=== PATIENT | male | born 1965 | race Caucasian/White ===

== ENCOUNTER 2021-03-15 12:59 | Inpatient (IN) | payer OTHER, SELFPAY ==
[2021-03-15] VITALS (28 sets, daily range): BP systolic 68–127; BP diastolic 57–91; PULSE 92–114; RESP 0–29; TEMP 36.4–37.2; O2SAT 93–99; BMI 29.1
--- NOTE | 2021-03-15 13:25 | ECG_ITS ---
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 Measurements Intervals [place] Rate: 103 P: 62 ND: 134 QRS: 91 QRSD: 146 T: -25 QT: 368 QTc: 482 Interpretive Statements SINUS TACHYCARDIA POSSIBLE LEFT ATRIAL ENLARGEMENT [-0.1mV P-WAVE IN V1/V2] INDETERMINATE AXIS RIGHT BUNDLE BRANCH BLOCK ANTEROLATERAL MYOCARDIAL INFARCTION , POSSIBLY ACUTE ACUTE NE No previous ECG available for comparison Electronically Signed On 03-15-2021 15:22:31 ENGINEERING MGR by Ava Howard M.D. [id number]
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
--- NOTE | 2021-03-15 13:51 | W.ED.CHESTPA ---
HPI - Chest Pain General: Chief Complaint: Chest Pain Stated Complaint: SOB, TIGHTNESS, CP Time Seen by Provider: 03/15/21 13:28 History of Present Illness: HPI narrative: 56-year-old male presents emergency room complaining of chest pain. States it began yesterday. He has no known history of coronary artery disease. He does have a family history of a sister who had stents placed in her late 50s. Chest pain is worse with exertion and improves considerably with rest is not taken anything for it other than [id number] aspirin and Prilosec to begin taking yesterday. Time I first seen patient reports chest pain is 3 of 10 but markedly increases with any activity. Has not had any fever sweats chills cough no abdominal pain. MD complaint: chest pain Onset (ago): hour(s) Onset: during rest Pain location: substernal and left chest Pain radiation: none Severity: moderate Relieving factors: rest Exacerbating factors: exertion Associated symptoms: Deny abdominal pain, diaphoresis, dyspnea, fever(s), leg edema, nausea, palpitations, sense of impending doom, syncope or vomiting Treatment prior to arrival: aspirin and other (Omeprazole) Review of Systems Const: Denies: fever(s) or diaphoresis ENMT: Denies: throat pain, ear or mastoid pain, nasal discharge or nasal congestion Card: Denies: palpitations or syncope Resp: Denies: dyspnea GI: Denies: abdominal pain, nausea or vomiting : Denies: flank pain, dysuria, urinary frequency or urinary urgency Skin/Breast: Denies: rash or pruritus [facility] ED PFSH: Medical History (Updated 03/15/21 @ 13:58 by Kan Sprague DO) No pertinent past medical history Surgical History (Updated 03/15/21 @ 13:56 by Kan Sprague DO) No pertinent past surgical history Social History (Updated 03/15/21 @ 13:57 by Kan Sprague DO) Smoking and tobacco status: current some day smoker Physical Exam Const: COMMON NORMALS: no acute distress GENERAL APPEARANCE: cooperative and comfortable ORIENTATION/CONSCIOUSNESS: Yes awake, Yes oriented to person, Yes oriented to place and Yes oriented to time HENMT: COMMON NORMALS: normocephalic, atraumatic and hearing grossly normal bilaterally HEAD & SCALP: normocephalic and atraumatic Neck/C-Spine: COMMON NORMALS: no JVD Resp: COMMON NORMALS: normal respiratory effort, No retractions, No use of accessory muscles and clear to auscultation bilaterally AUSCULTATION: clear to auscultation bilaterally Cardio: COMMON NORMALS: no JVD, regular rate, regular rhythm and No murmurs present (Cardio) RATE: regular rate RHYTHM: regular rhythm GI: COMMON NORMALS: Soft to palpation and No hepatosplenomegaly present AUSCULTATION: Yes normoactive bowel sounds PALPATION: Yes Soft to palpation, No Tenderness to palpation present (GI), No Guarding due to palpation present (GI) and Yes No hepatosplenomegaly present Extremity: COMMON NORMALS: normal to inspection, capillary refill normal, no clubbing, cyanosis or edema, no calf tenderness and no pedal edema Neuro: SENSORIUM/ORIENTATION: Yes oriented to person, Yes oriented to place and Yes oriented to time Skin: COMMON NORMALS: no rashes or lesions noted GENERAL SKIN EXAM: no rashes or lesions noted Course Vital Signs: Vital signs: Vital Signs Temperature 98.9 F 03/15/21 13:10 Pulse Rate 101 H 03/15/21 14:05 Respiratory Rate 18 03/15/21 14:05 Blood Pressure 121/80 03/15/21 13:10 Pulse Oximetry 95 03/15/21 14:05 MDM - Chest Pain MDM Narrative: Medical decision making narrative: Nursing staff showed me initial EKG from the waiting room shows ST elevation in V34 and 5 with some reciprocal changes as well. Unfortunately he also has a bundle branch block and there are no old EKGs to compare to. He does meet criteria. Sent to Dr. Nickerson who is on-call for interventional. We then called him shortly after discussed with him he reviewed on the [employer] system he agrees it is concerning patient is still having chest pain that is better with rest and worsens with exertion Dr. Chan asked that we initiate STEMI protocols. We had already begun initiating these at the bedside with Plavix aspirin and heparin. It was paged overhead the Help Desk Coordinator activated. Lab Data: Labs: Lab Results 03/15/21 13:41 WBC 8.0 10^3/uL 10^3/ uL (4.0-10.0) RBC 5.22 10^6/uL 10^6 /uL (4.1-5.3) Hgb 15.7 g/dL g/dL (11.7-16.6) Hct 47.1 % % (42.0-52.0) MCV 90.2 fl fl (80-94) MCH 30.1 pg pg (28.0-34.0) MCHC 33.3 g/dL g/dL (30.0-36.0) RDW 13.1 % % (12.1-15.1) Plt Count 201 10^3/cmm 10^3 /cmm (130-400) MPV 11.1 fL H fL (7.4-10.4) Neut % (Auto) 73.7 % % Lymph % (Auto) 15.2 % % [place] % (Auto) 10.7 % % Eos % (Auto) 0.0 % % Baso % (Auto) 0.2 % % Neut # (Auto) 5.90 10^3/uL 10^3 /uL (1.8-7.7) Lymph # (Auto) 1.2 10^3/uL 10^3/ uL (0.8-4.8) [place] # (Auto) 0.9 10^3/uL 10^3/ uL (0.2-0.9) Eos # (Auto) 0.0 10^3/uL 10^3/ uL (0.0-0.8) Baso # (Auto) 0.0 10^3/uL 10^3/ uL (0.0-0.1) Nucleated RBC % (a uto) 0 % % Nucleated RBCs # 0.0 /100WBC /100W Discharge Plan Discharge Patient Disposition: Admitted As Inpatient Clinical Impression: ST elevation myocardial infarction (STEMI) Condition: Stable Coding Level of Care Code ED Couture Alterations Dressmaker for g Fwd Exam Comprehensive
--- NOTE | 2021-03-15 13:57 | XACV_ITS ---
Exam Room: 2 Ht: 183 cm Wt: 98 kg BSA: 2.25 m2 Gender: Male : 1965 Any Known Allergies: No known allergies Exam Priority: Routine Procedure(s): Procedure Description: Diagnostic procedure Procedure Description: PCI procedure Procedure Description: Left Heart Catheterization Procedure Description: Left ventriculography Procedure Description: PTCA Procedure Description: Coronary Angiography Celestine MARTINEZ; Diagnostic Cath Status: Emergency Diagnostic Findings * INDICATION: 56-year-old man with no significant prior cardiac history presented with chest pain symptoms for last 36 hours. Now it is almost resolved however still having some symptoms. EKG showed right bundle branch block with ST elevations in anterolateral leads. Tax Professional was activated for angiogram. * Circumflex has luminal irregularities. It gives collateral supply to RCA territory.. * Proximal Right Coronary Artery: total occlusion, LUCILA: 0 flow. Right to left collaterals are seen.. * First Obtuse Marginal Branch Segment: has 60-70% stenosis, LUCILA: 3 flow. * Left Main has no disease. * Mid Left Anterior Descending: total occlusion, LUCILA: 0 flow. * Coronary angiography shows right dominance. PCI Status: Emergency PCI Indication: Immediate PCI for STEMI Interventional Findings * Procedure detail: We engaged left main artery with XB 3.5 guide catheter. Run-through wire was used to attempt crossing into the LAD. It crossed the stenosed segment however was going into a diagonal. Multiple balloon inflations were performed however no flow could be restored. At this time we aborted further attempts as patient was chest pain-free, he had completed infarct and results of labs came back during the procedure showing initial troponin level of more than 3000. We then turned our attention to the OM 1 lesion which was 60 to 70% stenotic. We performed balloon angioplasty with 2.5 x 12 mm semicompliant balloon. At this time final images were obtained. Patient left the garden labourer in a stable condition. * Mid Left Anterior Descendin% stenosis treated with a AB TREK 2.50X12 RX BALLOON. 0% residual stenosis, LUCILA: 0 flow. * First Obtuse Marginal Branch Segment: 70% stenosis treated with a AB TREK 2.50X12 RX BALLOON. 0% residual stenosis, LUCILA: 3 flow. Conclusions 1. Totally occluded 2. mid LAD 3. . 4. This is 5. delayed presentation of ST elevation [place] 6. and LV gram showing akinetic/dyskinetic apical 7. area 8. . 9. Attempt to revascularize 10. LAD was aborted after no flow could be restored after balloon angioplasty and patient became chest pain-free. 11. During the procedure patient's labs came back with initial troponin of more than 3000 confirming delayed presentation and completion of infarct.. 12. Chronic total occlusion of RCA. 13. OM stenosis underwent balloon angioplasty. 14. Severe left ventricular systolic dysfunction. Ejection fraction of 15%. Recommendations * Patient has completed infarct. Medical therapy for now. Continue aspirin. * Order echocardiogram. * Transfer to ICU. * Beta-dolly and Lisinopril. * Will need close monitoring as high risk for developing cardiogenic shock. Interventional RX Recommendation: medical therapy and/or counseling Anticoagulation: Heparin Ventriculography Ejection Fraction: 15.0 % Pressures Phase:Rest AO : 81 / 69 ( 75 ) @ 12:24:00 PM 104 / 79 ( 89 ) @ 12:42:00 PM 109 / 75 ( 86 ) @ 12:43:00 PM 84 / 75 ( 78 ) @ 1:04:00 PM 99 / 84 ( 81 ) @ 1:10:00 PM 100 / 58 ( 72 ) @ 1:10:00 PM LV : 112 / 0 / 29 @ 1:08:00 PM 111 / 0 / 24 @ 1:09:00 PM 110 / 0 / 23 @ 1:10:00 PM Valves Phase:DefaultPhase AV : 12.0 @ 3:17:37 PM AV Mean Gradient: 15.0 @ 3:17:37 PM Clinical Evaluation EBL: 5mL-10mL Procedural Details Pre-Procedure Time Out. Identified patient by full name and date of as verbalized by the patient/guarantor. Does the consent match the physician's order: Yes. Accurate & Complete Informed Consent: N/A Emergent. Inpatient/Outpatient History & Physical on Chart: N/A Emergent. If H&P is completed, is and addenduem needed: N/A Emergent; If yes, is the addendum complete: N/A Emergent. Visualize and Verify Site with Patient/Guarantor: N/A. Relevant Radiology Images available: N/A Emergent. Pre-op teaching completed and patient verbalized understanding. The risks, benefits, and alternatives of sedation and/or procedure were discussed by physician. The patient agrees to continue. Procedure started. [facility] Clinical Fraility Score: 3: Managing Well. Tax Professional Indications: ACS <= 24 hours. Chest Pain Symptom Assessment: Typical Angina Symptoms. Correct patient, site and procedure confirmed by cath team. Current diagnosis: STEMI. PERRLA. Strong, equal hand commanding officer motorized squad bilaterally. Lungs clear x 5 lobes. IV Site on Arrival: 18 gauge in the left anticubital. IV Fluids: 0.9% NaCl at KVO. 0 mL infused prior to garden labourer. Oxygen started at 2liters/min via nasal canula. right groin was prepped with chloroprep then draped in the usual sterile fashion. right radial was prepped with chloroprep then draped in the usual sterile fashion. Physician notified. Baseline sample Acquired. HR: 104 BPM. Current Diagnosis : STEMI. Physician arrived. Physician scrubbed in. Immediate Pre-Procedure Time Out. Correct Patient: Yes; Correct Procedure: Yes; Correct Site: Yes; Correct Patient Position: Yes; Correct Supplies: Yes; Dried Flammable Prep: Yes; Blood Products Available: N/A;. Lidocaine 1% infiltrated to the right radial. An attempt to gain access to the right radial artery was unsuccessful. Manual pressure was held as needed to stop the bleeding. Lidocaine 1% infiltrated to the right groin. Arterial access obtained with micropuncture set. 6 mauritian XB 3.5 guide catheter was inserted over the wire. Multiple views taken of left coronary artery. Runthrough guidewire was advanced through the guide catheter to lesion in the mid LAD. Inflation number : 1 A AB TREK 2.50X12 RX BALLOON was prepped and advanced across the Mid LAD , then inflated to 6 STEVEN for 0:27 seconds. Inflation number: 2 The AB TREK 2.50X12 RX BALLOON was reinflated across the Mid LAD, to 6 STEVEN for 0:09 seconds. Balloon out. PCI Indication: STEMI. Inflation number: 3 The AB TREK 2.50X12 RX BALLOON was reinflated across the Mid LAD, to 8 STEVEN for 0:10 seconds. PCI Indication : Immediate PCI for STEMI. Inflation number: 4 The AB TREK 2.50X12 RX BALLOON was reinflated across the Mid LAD, to 12 STEVEN for 0:12 seconds. Balloon and wire out. Results checked. A 6 mauritian JR4 catheter in over wire. Multiple views taken of right coronary artery. Catheter removed over the standard wire. 6 mauritian XB 3.5 guide catheter was inserted over the wire. Lab called with critical labs. Troponin: 3308. Runthrough guidewire was advanced through the guide catheter to lesion in the mid LAD. Runthrough guidewire was advanced through the guide catheter to lesion in the diaganol. Inflation number: 5 The AB TREK 2.50X12 RX BALLOON was reinflated across the Mid LAD, to 6 STEVEN for 0:11 seconds. Diag wire out. Balloon out. Runthrough repositioned to OM. Inflation number: 1 The AB TREK 2.50X12 RX BALLOON was reinflated across the 1st Ob Gela, to 8 STEVEN for 0:17 seconds. Balloon out. Results checked. Wire out. Guide catheter out. A 5 mauritian Angled Pig catheter in over wire. EDP Sample taken: LV 112/0,29; HR: 103 BPM; SpO2: 95%. LV gram performed in PRAJAPATI @ 10 mL/second for a total of 30 mL. EDP Sample taken: LV 111/-1,24; HR: 101 BPM; SpO2: 97%. Pullback taken: LV 110/0,23; AO 99/84(81); Mean: 15mmHg, Peak to Peak: 12mmHg, SEP: 12sec/min; HR: 102 BPM; SpO2: 95%. Catheter removed over the exchange wire. Sheath(s) sutured into position with 2-0 silk and sterile 4x4's and Op-site applied over the site. No oozing or signs and symptoms of hematoma noted. Arterial sheath flushed and connected to tranducer and pressure bag with heparinized saline. Post Procedure: Pulses reassessed and unchanged. PERRLA. Strong, equal hand commanding officer motorized squad bilaterally. No VTE prophylaxis required. Medication's Wasted: Lidocaine 1% = 10 mL. Medication's Wasted: Other = Heparin 1000 units. Medication's Wasted: Nitro = 50 mg. Total IV fluids: 67.3 mL. Contrast type used: Omnipaque 300 mgI/mL, 500 mL bottle. Estimated blood loss: 5mL-10mL. Responsiveness - Normal response to verbal stimuli; alert and oriented, PERRLA. Airway - Unaffected, no intervention required; spontaneous ventilation. Circulation: W/N/L, pulses unchanged. Nausea/Vomiting: No. Procedure completed. Vital chart was stopped. Patient transferred by bed to 1st floor. Access Site Site: Right Femoral artery Sheath Size: 6 Fr Hemostasis Success: Unsuccessful Procedure Medications Start: 2:11 PM Stop: 2:11 PM Medication: Versed Amount: 1 mg Route: I.V. Start: 2:11 PM Stop: 2:11 PM Medication: Fentanyl Amount: 50 mcg Route: I.V. Start: 2:16 PM Stop: 2:16 PM Medication: Versed Amount: 1 mg Route: I.V. Start: 2:16 PM Stop: 2:16 PM Medication: Fentanyl Amount: 50 mcg Route: I.V. Start: 2:25 PM Stop: 2:25 PM Medication: Heparin Amount: 8000 units Route: I.V. Start: 2:54 PM Stop: 2:54 PM Medication: Versed Amount: 1 mg Route: I.V. Start: 2:54 PM Stop: 2:54 PM Medication: Fentanyl Amount: 50 mcg Route: I.V. Start: 3:11 PM Stop: 3:11 PM Medication: Plavix Amount: 300 mg Route: P.O. Start: 3:11 PM Stop: 3:11 PM Medication: Aspirin Amount: 325 mg Route: P.O. I, the attending physician, have reviewed and verified all procedure medications. Yes, all medications given per verbal order History/Risk Factors Hypertension: No Dyslipidemia: No Peripheral Arterial Disease (PAD): No Myocardial Infarction (TN): No Obesity: No Renal Disease: No Prior Interventions PCI: No CABG: No Valve Surgery: No Report Signatures Finalized by Elton Nickerson MD on 03/17/2021 11:48 AM
--- NOTE | 2021-03-15 14:00 | PC.NURSE ---
Combination Window Installer here at bedside to transport patient to car barn laborer. patient in no obvious distress.
[2021-03-15 14:08] LABS: Basophils % 0.2 %; Hematocrit 47.1 % (42.0-52.0); Hemoglobin 15.7 g/dL (11.7-16.6); Lymphocytes # 1.2 10^3/uL (0.8-4.8); Lymphocytes % 15.2 %; Mean Corpuscular HGB Conc 33.3 g/dL (30.0-36.0); Mean Corpuscular Hemoglobin 30.1 pg (28.0-34.0); Mean Corpuscular Volume 90.2 fl (80-94); Mean Platelet Volume 11.1 fL (7.4-10.4); Monocytes # 0.9 10^3/uL (0.2-0.9); Monocytes % 10.7 %; Neutrophils % 73.7 %; Nucleated Red Blood Cells % 0 %; Platelet Count 201 10^3/cmm (130-400); Red Blood Count 5.22 10^6/uL (4.1-5.3); Red Cell Distribution Width 13.1 % (12.1-15.1)
[2021-03-15 14:43] LABS: Alanine Aminotransferase 59 U/L (0-41); Albumin Level 3.5 g/dL (3.5-5.2); Alkaline Phosphatase 87 IU/L (40-130); Anion Gap 17.2 (5-19); Aspartate Amino Transferase 67 U/L (0-40); Blood Urea Nitrogen 24 mg/dL (6-20); CKMB 5.9 ng/mL (0-10.4); Calcium 8.4 mg/dL (8.5-10.5); Carbon Dioxide 21 mmol/L (22-29); Chloride 95 mmol/L (98-107); Creatine Phosphokinase 176 U/L (39-308); Globulin 2.8 g/dL (1.3-4.6); Glomerular Filtration Rate 56.9 mL/min (90-130); Glucose 111 mg/dL (65-115); Osmolality Calculated 273 mOsm/kg (285-295); Potassium 4.2 mmol/L (3.5-5.1); Sodium 129 mmol/L (136-145); Total Bilirubin 0.8 mg/dL (0.15-1.2); Total Protein 6.3 g/dL (6.6-8.7)
[2021-03-15 14:49] LABS: Troponin(5th) Baseline 3308 ng/L (0-15)
--- NOTE | 2021-03-15 15:26 | P.HP_ITS ---
Providers/Chief Complaint Admitting Physician: Elton Nickerson MD Primary Care Provider: Sher Aviles MD Chief Complaint: SOB, TIGHTNESS, CP History of Present Illness Jose Antonio Garrett is a 56 year old male with past medical history of smoking, not taking any medications has presented with chest pain symptoms. According to patient he has been having on and off chest pain since yesterday morning. Its about 36 hours. EKG showed right bundle branch block with anterolateral ST [place] vations. Automotive Parts Advisor was activated and coronary angiogram showed occluded mid LAD artery and SOIL TECHNOLOGIST of RCA. Wire was crossed into the LAD however after multiple balloon angioplasty, no flow could be restored. Given late presentation of ST elevation [place], troponin more than 3000 and almost complete resolution of chest pain, we decided to treat him medically. Balloon angioplasty of OM 1 was performed as had 60-70% stenosis. His LVEDP is elevated. Review of Systems General: Reports: 10 or more systems reviewed and unremarkable except in HPI and below PFSH Acute PFSH: Medical History No pertinent past medical history Surgical History No pertinent past surgical history Family History Sister CAD (coronary artery disease) Social History Smoking and tobacco status: current some day smoker Vitals/I&O/Wt Last Vital Signs Temp 98.9 F 03/15/21 13:10 Pulse 101 H 03/15/21 14:05 Resp 18 03/15/21 14:05 BP 121/80 03/15/21 13:10 Pulse Ox 95 03/15/21 14:05 Weight last 48 hrs Weight 215 lb Physical Exam Narrative: EXAM NARRATIVE: GENERAL: Patient is alert, awake and oriented x3. [] NECK: No jugular vein distension. [] HEENT: No cyanosis. No icterus. No pallor. [] HEART: Tachycardia, Regular S1 and S2. LUNGS: Clear to auscultate bilaterally. [] ABDOMEN: Soft, nontender and nondistended. Positive bowel sounds. No guarding, rebound or tenderness. [] CENTRAL NERVOUS SYSTEM: Grossly nonfocal. [] EXTREMITIES: Lower extremities with 1+ edema bilaterally. Pulses palpable in the lower extremities, both dorsalis pedis and posterior tibial. [] Data : 03/15/21 13:41 03/15/21 13:41 A&P Assessment and plan (1) ST elevation myocardial infarction (STEMI): Status: Acute (2) Tobacco abuse: Status: Acute Patient has presented late with anterolateral STEMI. Likely culprit appears to be LAD. However he has completed infarct, with almost complete resolution of chest pain, troponin over 3000. Attempt at revascularization of LAD was unsuccessful. LV gram showed severely reduced LVEF of 15 to 20%. Balloon angioplasty of OM1 done. ICU bed not available. He will be transferred to cardiac stepdown unit Medical therapy for now. Aspirin and Plavix. High intensity statin therapy. Order echocardiogram. Beta-dolly. He will need diuretics his LVEDP was elevated. Attestations Medical Necessity Statement*: Care expected to cross 2 midnights. Patient has presented late with ST elevation [place] and revascularization of LAD could not be performed. Medical therapy. Balloon angioplasty of OM was performed. Coding Level of Care Code Acute Power Saw Operator for [facility] Sybil Diagnoses ST elevation myocardial infarction (STEMI) I21.3 Tobacco abuse Z72.0
--- NOTE | 2021-03-15 15:29 | USCV_ITS ---
Jose Antonio Garrett Age: 56 Gender: M : 1965 Exam Date: 03/15/2021 16:08 Ordering Phys: Elton Nickerson M.D ([email or web address]) Technologist: Vianca Hunt Exam Location: [facility] Indication: POST [place] BP: 111 / 86 HR: 102 Rhythm: Sinus Technical Quality: Adequate MEASUREMENTS (Male / Female) Normal Values 2D ECHO LV Diastolic Diameter PLAX 6.1 cm 4.2 - 5.9 / 3.9 - 5.3 cm LV Systolic Diameter PLAX 5.0 cm IVS Diastolic Thickness 1.5 cm 0.6 - 1.0 / 0.6 - 0.9 cm IVS Systolic Thickness 1.9 cm LVPW Diastolic Thickness 1.7 cm 0.6 - 1.0 / 0.6 - 0.9 cm LVPW Systolic Thickness 2.0 cm LVOT Diameter 2.0 cm LV Ejection Fraction 2D Teich 35.5 % LV Ejection Fraction MOD 2C 16.0 % LV Ejection Fraction 2C AL 18.1 % LA Diameter 4.0 cm LA Width 4.1 cm LA Height 6.7 cm RA Width 3.2 cm RA Height 6.7 cm Aorta at Sinotubular Diameter 3.1 cm M-MODE Aortic Annulus Diameter 2.6 cm LA Ao Ratio MM 1.5 MV E Point Septal Separation 1.8 cm DOPPLER AV Peak Velocity 107.0 cm/s LVOT Peak Velocity 57.0 cm/s AV Area Cont Eq vti 1.6 cm squared AV Area Cont Eq pk 1.7 cm squared MV Peak Velocity 137.0 cm/s MV Area PHT 5.5 cm squared Mitral E to A Ratio 1.7 MV E' Velocity 61.0 cm/s Mitral E to MV E' Ratio 23.9 Mitral E to LV E' Lateral Ratio 25.5 Mitral E to LV E' Septal Ratio 23.0 TR Peak Velocity 241.4 cm/s TR Peak Gradient 23.3 mmHg TR Mean Velocity 187.0 cm/s TR Mean Gradient 15.4 mmHg TR Velocity Time Integral 66.8 cm TV Peak E Velocity 50.0 cm/s Right Atrial Pressure 8.0 mmHg Pulmonary Artery Systolic Pressu 31.3 mmHg PV Peak Velocity 83.0 cm/s RV Acceleration Time 0.1 s RV Ejection Time 0.2 s RV AcT/ET 0.4 FINDINGS Left Ventricle LV is moderately dilated. LV systolic function is severely reduced with EF of 10-15%. Severe global hypokinesis is noted. Mid to apical anterolateral, anterior, inferoseptal shah are akinetic. [place] is dyskinetic. Grade 2 diastolic dysfunction Right Ventricle The right ventricle is hypokinetic Right Atrium The right atrium is dilated Left Atrium The left atrium is severely dilated Mitral Valve Mitral valve is thickened without significant stenosis or prolapse. There is eccenteric moderate mitral regurgitation. Aortic Valve Grossly normal without significant sclerosis or stenosis. There is trace aortic regurgitation. Tricuspid Valve Structurally normal tricuspid valve without significant stenosis. Mild tricuspid regurgitation. Pulmonary artery systolic pressure is normal. Pulmonic Valve Grossly normal Pericardium Normal pericardium without effusion. Aorta Normal ascending aorta dimension. CONCLUSIONS LV is moderately dilated. LV systolic function is severely reduced with EF of 10 to 15%. Severe global hypokinesis is noted. Above-mentioned regional wall motion abnormalities. Grade 2 diastolic dysfunction Right ventricle is hypokinetic Right atrium is dilated. Left atrial dilation Eccentric moderate mitral regurgitation Trace aortic regurgitation Mild tricuspid regurgitation No comparison studies are available Elton Nickerson MD (Electronically Signed) Final Date: 16 March 2021 11:48 S
[2021-03-15] MEDS: perflutren protein-a microsphr 0.22 mg/mL SDV 3 mL IV (16:43)
--- NOTE | 2021-03-15 17:00 | PC.NURSE ---
Pt returned from section laborer at approximately 1530 to room 112-1. Pt has right groin 6 turkmen cardiac sheath connected to pressure bag. Pt has no swelling, hematoma or excess bleeding noted. Pt teaching was given on the importance of keeping flat and keeping right leg still and flat. Pt had no c/o pain or discomfort at the present time. No needs voiced. Will continued to monitor.
[2021-03-15 18:06] LABS: INR 1.55 (0.8-1.2)
[2021-03-15 18:08] LABS: Partial Thromboplastin Time 58.1 SECONDS (23.9-36.7)
[2021-03-15 18:18] LABS: Troponin 5 2HR 3230 ng/L (0-15); Troponin 5 2HR Delta -78 ABS# (0-10)
[2021-03-15] MEDS: metoprolol tartrate 25 mg Tablet PO (19:47)
[2021-03-15 20:22] LABS: Troponin 5 6HR 4082 ng/L (0-15); Troponin 5 6HR Delta 774 ng/L (0-12)
[2021-03-15] MEDS: atorvastatin 40 mg Tablet 80 MG PO (22:05)
--- NOTE | 2021-03-15 23:07 | XRR_ITS ---
PROCEDURE INFORMATION: Exam: XR Chest Exam date and time: 03/15/2021 11:07 PM Age: 56 years old Clinical indication: Shortness of breath; Additional info: SOB TECHNIQUE: Imaging protocol: XR of the chest. Views: 1 view. COMPARISON: CR XR chest 1V portable [id number] 03/15/2021 1:41 PM FINDINGS: Lungs: Unremarkable. No consolidation. Pleural spaces: Unremarkable. No pleural effusion. No pneumothorax. Heart/Mediastinum: The cardiac silhouette is at the upper limits of normal. There are no findings to suggest acute cardiac decompensation. Bones/joints: Unremarkable. XR/XR chest 1V portable [id number] IMPRESSION: 1. Mildly prominent cardiac silhouette without evidence of acute cardiac decompensation.
[2021-03-15] MEDS: ondansetron 4 MG Tablet PO (23:33)
[2021-03-15] MEDS: FUROsemide 10 mg/mL SDV 4mL 40 MG IVP (23:33)
[2021-03-16] VITALS (57 sets, daily range): BP systolic 81–127; BP diastolic 63–98; PULSE 84–98; RESP 12–30; TEMP 36.6–36.8; O2SAT 71–100
[2021-03-16] MEDS: acetaminophen 325 mg Tablet 650 MG PO (05:25)
[2021-03-16 05:38] LABS: Basophils % 0.3 %; Hematocrit 45.6 % (42.0-52.0); Hemoglobin 15.6 g/dL (11.7-16.6); Lymphocytes # 1.1 10^3/uL (0.8-4.8); Lymphocytes % 15.1 %; Mean Corpuscular HGB Conc 34.2 g/dL (30.0-36.0); Mean Corpuscular Hemoglobin 31.3 pg (28.0-34.0); Mean Corpuscular Volume 91.4 fl (80-94); Mean Platelet Volume 11.5 fL (7.4-10.4); Monocytes # 0.8 10^3/uL (0.2-0.9); Monocytes % 10.4 %; Neutrophils # 5.34 10^3/uL (1.8-7.7); Neutrophils % 73.8 %; Nucleated Red Blood Cells % 0 %; Platelet Count 172 10^3/cmm (130-400); Red Blood Count 4.99 10^6/uL (4.1-5.3); Red Cell Distribution Width 13.2 % (12.1-15.1); White Blood Count 7.2 10^3/uL (4.0-10.0)
[2021-03-16 06:09] LABS: Blood Urea Nitrogen 33 mg/dL (6-20); Calcium 8.5 mg/dL (8.5-10.5); Carbon Dioxide 18 mmol/L (22-29); Chloride 95 mmol/L (98-107); Glomerular Filtration Rate 39.1 mL/min (90-130); Glucose 104 mg/dL (65-115); Osmolality Calculated 280 mOsm/kg (285-295); Sodium 131 mmol/L (136-145)
[2021-03-16 06:26] LABS: Anion Gap 23.2 (5-19); Potassium 5.2 mmol/L (3.5-5.1)
[2021-03-16 07:45] LABS: Slide Review Slide Review Perform
[2021-03-16] MEDS: metoprolol tartrate 25 mg Tablet PO (09:04)
[2021-03-16] MEDS: clopidogrel 75 mg Tablet PO (09:04)
[2021-03-16] MEDS: aspirin 81 mg EC Tablet PO (09:05)
--- NOTE | 2021-03-16 09:25 | PM.PN ---
Subjective Subjective: Interval history: Patient is stable at this time. He denies chest pain. Has occasional chest pain. His renal function has worsened Vitals/I&O/Wt Last Vital Signs Temp 98 F 03/16/21 04:38 Pulse 95 03/16/21 04:38 Resp 17 03/16/21 04:38 BP 92/68 03/16/21 04:38 Pulse Ox 92 03/16/21 04:38 03/15/21 03/16/21 03/16/21 22:59 06:59 14:59 Intake Total 1000 / 1000 240 / 240 Output Total 150 / 150 Balance 850 / 850 240 / 240 Weight last 48 hrs Weight 215 lb Physical Exam Narrative: EXAM NARRATIVE: GENERAL: Patient is alert, awake and oriented x3. [] NECK: No jugular vein distension. [] HEENT: No cyanosis. No icterus. No pallor. [] HEART: Tachycardia, Regular S1 and S2. LUNGS: Clear to auscultate bilaterally. [] ABDOMEN: Soft, nontender and nondistended. Positive bowel sounds. No guarding, rebound or tenderness. [] CENTRAL NERVOUS SYSTEM: Grossly nonfocal. [] EXTREMITIES: Lower extremities with 1+ edema bilaterally. Pulses palpable in the lower extremities, both dorsalis pedis and posterior tibial. [] Data : 03/16/21 05:00 03/16/21 05:00 A&P Assessment and plan (1) ST elevation myocardial infarction (STEMI): Status: Acute (2) Tobacco abuse: Status: Acute (3) SANAM (acute kidney injury): Status: Acute (4) HFrEF (heart failure with reduced ejection fraction): Status: Acute Patient has presented late with anterolateral STEMI. Likely culprit appears to be LAD. However he had completed infarct, with almost complete resolution of chest pain, troponin over 3000. Attempt at revascularization of LAD was unsuccessful. LV gram showed severely reduced LVEF of 15 to 20%. Balloon angioplasty of OM1 done. Patient has overall stayed stable overnight however developed an episode of shortness of breath. He received Lasix dose. For now we will give lasix as needed, given his SANAM He has developed SANAM. Baseline creatinine not known. Initial creatinine at admission was 1.3 which has trended up to 1.8. Monitor closely. Medical therapy for now. Aspirin and Plavix. High intensity statin therapy. ECHO shows EF of 10-15%. Continue metoprolol. Will hold lisinopril at this time as renal function is worsening Patient will need LifeVest at time of discharge. Attestations Medical Necessity Statement*: Care expected to cross 2 midnights. Patient had presented late with ST elevation [place]. Revascularization of LAD could not be performed and he had completed his infarct already. He has new onset heart failure. Has developed SANAM likely secondary to combination of contrast-induced nephropathy and low output state. Coding Level of Care Code Acute Insurance Writer for Дмитрий Devine Diagnoses ST elevation myocardial infarction (STEMI) I21.3 Tobacco abuse Z72.0 SANAM (acute kidney injury) N17.9 HFrEF (heart failure with reduced ejection fraction) I50.20
[2021-03-16 09:58] LABS: Estmated Average Glucose 134; Hemoglobin A1C 6.3 % (4.0-6.0)
--- NOTE | 2021-03-16 10:28 | ECG_ITS ---
[facility] Test Date: 2021-03-16 Pat Name: Jose Antonio Garrett Department: Room: 112 Gender: Male Emergency Room Physician Assistant: : 1965 Requested By: Elton Nickerson Order Number: [id number] Carmen MD: Ajit Colby M.D. Measurements Intervals [place] Rate: 92 P: 55 AL: 127 QRS: 90 QRSD: 146 T: -29 QT: 383 QTc: 475 Interpretive Statements SINUS RHYTHM POSSIBLE LEFT ATRIAL ENLARGEMENT [-0.1mV P-WAVE IN V1/V2] INDETERMINATE AXIS RIGHT BUNDLE BRANCH BLOCK [120+ ms QRS DURATION, UPRIGHT V1, 40+ ms S IN I/aVL/V4/V5/V6];ANTERIOR MYOCARDIAL INFARCTION , POSSIBLY ACUTE [40+ ms Q WAVE AND/OR ST/T;ABNORMALITY IN V3/V4];ST elevation suggestive of lateral wall IN Possible old inferior wall myocardial infarction ACUTE IN INTERPRETATION BASED ON A DEFAULT AGE OF 40 YEARS Compared to ECG 03/15/2021 13:24:36 Sinus tachycardia no longer present Myocardial infarct finding still present Electronically Signed On 03-17-2021 0:02:17 POWERHOUSE ENGINEER by Ajit Colby M.D. [id number]
--- NOTE | 2021-03-16 10:30 | PC.NURSE ---
Call placed to Dr. Nickerson regarding patient c/o of bloating and indigestion with diaphorou FS blood sugar and stat [address] nickerson states he will be over to see patient.
[2021-03-16 10:35] LABS: Glucose Point of Care 102 mg/dL (70-110)
[2021-03-16] MEDS: alum-mag-hydroxide-sime 30 mL UDC PO (10:52)
[2021-03-16] MEDS: ondansetron 2 mg/ML SDV 2 mL IVP (11:03)
[2021-03-16 16:02] LABS: Blood Urea Nitrogen 44 mg/dL (6-20); Calcium 8.1 mg/dL (8.5-10.5); Carbon Dioxide 14 mmol/L (22-29); Chloride 93 mmol/L (98-107); Glomerular Filtration Rate 24.5 mL/min (90-130); Glucose 103 mg/dL (65-115); Osmolality Calculated 281 mOsm/kg (285-295); Sodium 130 mmol/L (136-145)
[2021-03-16 16:04] LABS: Anion Gap 29.3 (5-19); Potassium 6.3 mmol/L (3.5-5.1)
[2021-03-16] MEDS: ALPRAZolam 0.5 mg Tablet 0.25 MG PO (16:44)
--- NOTE | 2021-03-16 17:53 | PM.CONSULT ---
Providers/Reason For Consult Consulting Physician/Specialty*: Acosta Wang MD Reason for Consult*: Worsening renal function, hyperkalemia Attending Physician: Elton Nickerson M.D Primary Care Provider: Sher Aviles MD History of Present Illness History of Present Illness Jose Antonio Garrett is a 56 year old male with no significant past medical history other than smoking, noncompliance was admitted to be cardiology service yesterday with delayed presentation of anterior lateral ST elevation [place]. 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 Even after multiple balloon angioplasty the flow could not be restored hence it was decided to treat patient medically. Balloon angioplasty of OM was performed which had 60 to 70% stenosis. He was also found to have an elevated LVEDP. Echocardiogram was done yesterday which showed an EF of 10 to 15% with regional wall motion normality of severe global lateral hypokinesia, dyskinetic apex and akinetic mid to apical anterolateral, anterior and inferior lateral shah, grade 2 diastolic dysfunction, hypokinetic right ventricle, dilated right atrium and left atrium with eccentric moderate MR. On presentation patient's creatinine was 1.3 with a sodium of 129. His renal functions deteriorated during the day and currently creatinine is 2.7 with a potassium of 6.3 hence medical service was consulted for further management. Examination with at bedside patient is awake alert, in mild acute distress with cough. With blood pressure of 70 systolic and cold peripheries. Review of Systems General: Reports: 10 or more systems reviewed and unremarkable except in HPI and below Const: Denies: fever(s), chills, body aches, change in appetite, change in weight, malaise, night sweats, diaphoresis, change in sleep pattern, daytime sleepiness or snoring Eyes: Denies: change in vision, blurry vision, photophobia, eye discomfort or eye discharge ENMT: Denies: throat pain, enlarged tonsils, hoarseness, mouth pain, oral sores, dry mouth, tinnitus, nasal congestion or post nasal drip Card: Denies: chest pain, palpitations, irregular heart rhythm, edema, swelling of feet/ankles, lightheadedness, syncope, pre-syncope, dyspnea on exertion, orthopnea, leg pain with exertion or acrocyanosis Resp: Denies: dyspnea, productive cough, non-productive cough, wheezing, stridor, pain on inspiration, change in phlegm color, hemoptysis or chest congestion GI: Denies: abdominal pain, nausea, vomiting, hematemesis, coffee ground emesis, dysphagia, heartburn, diarrhea, constipation, bloating, GI cramping, change in bowel habits, pain on defecation, hematochezia or melena : Denies: flank pain, difficulty urinating, dysuria, urinary frequency, urinary urgency, urinary hesitancy, urinary dribbling, difficulty starting urination, change in urine stream, nocturia or hematuria Musc: Denies: neck pain, back pain, extremity pain, joint pain, joint swelling, joint redness, joint stiffness or limited range of motion Neuro: Denies: headache(s), numbness in extremities, weakness in extremities, sensory changes, lack of coordination, difficulty walking, frequent falls, dizziness, vertigo, confusion, Slurred speech present, difficulty communicating thoughts or seizure-like activity Psych: Denies: anxiety, depression, mood swings, panic attacks, hopelessness or irritability Endo: Denies: polyuria, polydipsia, tired all the time, cold intolerance, excessive sweating, flushing or heat intolerance Rodney/Lymph: Denies: easy bruising or easy bleeding All/Imm: Denies: tongue swelling, facial swelling or acute wheezing Meds/Allergies Home Medications and Allergies Home Medications Medication Instructions Recorded Confirmed Last Taken Type aspirin 325 mg PO DAILY 03/16/21 03/16/21 Unknown History Allergies Allergy/AdvReac Type Severity Reaction Status Date / Time No Known Allergies Allergy Unverified 03/16/21 11:43 Current Medications Current Medications Generic Name Dose Route Start Last Admin Trade Name Bean PRN Reason Stop Dose Admin Acetaminophen 650 mg 03/15/21 15:27 03/16/21 05:25 Acetaminophen 325 Mg Tablet PO 650 mg Q6H PRN Administration MILD PAIN Al Hydrox/Mg Hydrox/Simethicone 30 ml 03/15/21 15:27 03/16/21 10:52 Cybp-Vyn-Idayswzha-Jose 30 Ml Udc PO 30 ml Q15M PRN Administration INDIGESTION Alprazolam 0.25 mg 03/15/21 15:27 03/16/21 16:44 Alprazolam 0.5 Mg Tablet PO 0.25 mg TID PRN Administration ANXIETY Aspirin 81 mg 03/16/21 09:00 03/16/21 09:05 Aspirin 81 Mg Ec Tablet PO 81 mg DAILY JAYJAY Administration Atorvastatin Calcium 80 mg 03/15/21 21:00 03/15/21 22:05 Atorvastatin 40 Mg Tablet PO 80 mg BEDTIME JAYJAY Administration Clopidogrel Bisulfate 75 mg 03/16/21 09:00 03/16/21 09:04 Clopidogrel 75 Mg Tablet PO 75 mg DAILY JAYJAY Administration Metoprolol Tartrate 25 mg 03/15/21 19:00 03/16/21 09:04 Metoprolol Tartrate 25 Mg Tablet PO 25 mg BID@0900,2100 JAYJAY Administration PFSH Acute PFSH: Medical History No pertinent past medical history Surgical History No pertinent past surgical history Family History Sister CAD (coronary artery disease) Social History Smoking and tobacco status: current some day smoker Vitals/I&O/Wt Last Vital Signs Temp 98 F 03/16/21 04:38 Pulse 88 03/16/21 14:00 Resp 17 03/16/21 04:38 BP 92/68 03/16/21 04:38 Pulse Ox 94 03/16/21 10:46 03/16/21 03/16/21 03/16/21 06:59 14:59 22:59 Intake Total 1000 / 1000 600 / 600 Output Total 150 / 150 420 / 420 Balance 850 / 850 180 / 180 Weight last 48 hrs Weight 97.522 kg Physical Exam Narrative: EXAM NARRATIVE: EXAM NARRATIVE: General: Acute distress because of cough, AOx3, pale, cold clammy HEENT: PERRLA, pupils bilaterally equal and reactive Chest: Bilateral normal vesicular sounds, equal good air entry, fine crackles bilateral lower zone CVS: S1-S2 regular, pansystolic murmur present at apex rating to mid axillary line, no tachycardia, no gallops, no rubs Abdomen: Soft, nontender, no organomegaly, bowel sounds present, morbidly obese Neuro: No focal deficits, no facial deformity, AO x3, power 5/5 in all limbs A&P Assessment and plan (1) Cardiogenic shock: Status: Acute (2) ST elevation myocardial infarction (STEMI): Status: Acute (3) SANAM (acute kidney injury): Status: Acute (4) HFrEF (heart failure with reduced ejection fraction): Status: Acute (5) Hyperkalemia: Status: Acute (6) High anion gap metabolic acidosis: Status: Acute Additional A&P Information 56-year-old gentleman presented to the hospital with delayed presentation of ST elevation [place], post emergent cardiac cath with failure of mu-ism of blood flow after multiple balloon angioplasty to LAD, post PCI to OM1 found to have worsening renal functions, hyperkalemia with low blood pressures and cool peripherally. Cardiogenic shock: Secondary to delayed presentation of ST elevation OR. Moved to ICU. Keep mean arterial pressure over 65, saturation over 92%. Start on dobutamine and Levophed. Start dobutamine at 2.5 and if mean arterial pressure is maintained over 65 increased to 5 without titration. If blood pressures drop below 65 mmHg can drop dobutamine back to 2.5. For now hold off on metoprolol. Check lactate. Start patient on gentle IV hydration with normal saline at 50 cc/h while monitoring for fluid overload. Acute kidney injury: Hyperkalemia: Secondary to cardiogenic shock. Razo catheterization. Check urine lites, urine creatinine, urine eosinophils, renal ultrasound, hepatitis panel. Fluid and pressors as above. Check ABG. Repeat BMP in 3 hours. For hyperkalemia Kayexalate 15 g once, D50 insulin 10, calcium gluconate 1 g. Repeat BMP in 3 hours as above. High anion gap metabolic acidosis: Secondary to acute kidney injury. Check ABG. ST elevation OR: Post PCI to OM1. Continue with aspirin, Plavix, statin. Withhold beta-dolly for now given cardiogenic shock. Heparin 5000 every 12 hourly. Case discussed with cardiology. For concerns of dyskinetic LV wall for now we will hold off on full dose anticoagulation. Start on Tessalon Perles 200 3 times daily, Robitussin. Consult nephrology. Moved to ICU. Check iron panel, TSH, A1c, uric acid, blood cultures. CODE STATUS: Discussed in detail with family at bedside. Full code. Mechanical soft cardiac diet. Heparin for DVT prophylaxis. Protonix for PUD prophylaxis. Severely guarded prognosis. Discussed in detail with patient's at bedside. All the questions were answered. Consult Attestations Medical Necessity Statement: Requires further hospitalization for management of cardiogenic shock, acute kidney injury, hyperkalemia, high metabolic acidosis in setting of acute presentation with ST elevation OR Critical Care Time: The high probability of a clinically significant, sudden or life threatening deterioration of the patient's [cardiac, renal] system(s) required my full and direct attention, intervention and personal management. The critical care time is as shown. This time is in addition to time spent performing any reported procedures but includes the following: [x] Data and vital sign review and interpretation [x] Patient assessment, examination and intervention [x] Documentation [x] Medication orders and management Critical Care Time (min): 90 Coding Level of Care Code Acute Business Development Professional for g Fwd Diagnoses Cardiogenic shock R57.0 ST elevation myocardial infarction (STEMI) I21.3 SANAM (acute kidney injury) N17.9 HFrEF (heart failure with reduced ejection fraction) I50.20 Hyperkalemia E87.5 High anion gap metabolic acidosis E87.2
[2021-03-16] MEDS: DOBUTamine drip 500 MG/250 ML PREMIX 7.31 MG IV (18:08)
[2021-03-16] MEDS: calcium gluconate 0.1 gm/mL 10% SDV 10mL 1 GM IVP (18:10)
[2021-03-16] MEDS: dextrose 50% syringe 50 mL IVP (18:11)
[2021-03-16] MEDS: insulin regular-human 10 UNIT in SYRINGE 1 EACH IVP (18:12)
[2021-03-16] MEDS: sodium polystyrene sulfonate 15 gm/60 mL Btl PO ×2 (18:44)
[2021-03-16] MEDS: heparin 5,000 unit/mL INJ 1 mL 5000 UNIT SUBCUT (18:46)
[2021-03-16 18:55] LABS: ABG PH Result 7.34 (7.35-7.45); Arterial Blood Gas Hematocrit 45.2 % (42-52); Blood Gas Allen Test Pos; Blood Gas Sample Type Arterial
[2021-03-16 18:56] LABS: ABG PCO2 16.9 mmHg (35-45); Blood Gas Operator Identificat ED; Blood Gas Sample Site Radial, right; Oxygen Device ROOM AIR
[2021-03-16 19:10] LABS: Uric Acid 8.9 mg/dL (3.4-7.0)
[2021-03-16 19:13] LABS: Lactic Sepsis W/Reflex 7.9 mmol/L (0.5-2.2)
[2021-03-16] MEDS: benzonatate 100 mg Capsule 200 MG PO (19:28)
[2021-03-16] MEDS: sodium chloride 0.9% 1,000 ML 50 ML IV (19:33)
[2021-03-16 19:36] LABS: Iron 59 ug/dL (59-158)
--- NOTE | 2021-03-16 19:47 | PC.NURSE ---
Report called to Sissy in ICU. Patient transported on bed.
[2021-03-16 20:08] LABS: Hepatitis A Antibody IgM Non-Reactive (Nonreactive); Hepatitis B Core AB, Total Non-Reactive (Nonreactive); Hepatitis B Surface AB 6.5 (11.5-1000); Hepatitis B Surface Antigen Non-Reactive (Nonreactive); Hepatitis C Virus Antibody Non-Reactive (Nonreactive)
[2021-03-16 20:09] LABS: Thyroid Stimulating Hormone 2.65 uIU/mL (0.27-4.20)
--- NOTE | 2021-03-16 20:10 | PM.CONSULT ---
Providers/Reason For Consult Consulting Physician/Specialty*: Nephrology Reason for Consult*: SANAM and hyperK Attending Physician: Elton Nickerson M.D Primary Care Provider: Sher Aviles MD History of Present Illness History of Present Illness Thank you for consultation. Today I reviewed this 56-year-old gentleman for evaluation of acute kidney failure, hyperkalemia. Of note there is chart entry is performed on the following day has access to the EMR was not available yesterday evening. I evaluated him at 7 PM on 03/16. 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 Unfortunately flow could not be restored. He was found to have elevated left ventricular end-diastolic pressure, echo performed demonstrates 10-15% with severe global hypokinesis. Following this procedure, he was transferred back to the [facility] where he was found to be hypotensive and inotropic therapy was initiated with combination of Levophed as well as dobutamine. He was oliguric with acute kidney injury. Baseline creatinine 1.3 mg/dL, is now increasing to 3.4 mg/dL and potassium is noted to be elevated in the low 6 range. Receiving temporizing therapy. No overt uremic symptoms. No bladder outflow obstructive symptoms and Razo catheter is being placed. No extremity edema, shortness of breath or other hypervolemic symptoms at this time. Review of Systems Narrative: ROS - 12 point review of systems completed per HPI and subjective assessment, this includes Constitutional: Weakness, fatigue Respiratory: No SOB on exertion, comfortable at rest CardioVasc: No chest pain, palpitations Gastrointestinal: No nausea, no vomiting Neurological: No seizures, no AMS Derm: No new rashes, lesions or wounds Immunological: No seasonal and no food allergies Meds/Allergies Home Medications and Allergies Home Medications Medication Instructions Recorded Confirmed Last Taken Type aspirin 325 mg PO DAILY 03/16/21 03/16/21 Unknown History Allergies Allergy/AdvReac Type Severity Reaction Status Date / Time No Known Allergies Allergy Unverified 03/16/21 11:43 Current Medications Current Medications Generic Name Dose Route Start Last Admin Trade Name Freq PRN Reason Stop Dose Admin Acetaminophen 650 mg 03/15/21 15:27 03/16/21 05:25 Acetaminophen 325 Mg Tablet PO 650 mg Q6H PRN Administration MILD PAIN Al Hydrox/Mg Hydrox/Simethicone 30 ml 03/15/21 15:27 03/16/21 10:52 Bfzl-Mkx-Zxlpubxuq-Jose 30 Ml Udc PO 30 ml Q15M PRN Administration INDIGESTION Alprazolam 0.25 mg 03/15/21 15:27 03/16/21 16:44 Alprazolam 0.5 Mg Tablet PO 0.25 mg TID PRN Administration ANXIETY Aspirin 81 mg 03/16/21 09:00 03/17/21 08:06 Aspirin 81 Mg Ec Tablet PO 81 mg DAILY JAYJAY Administration Atorvastatin Calcium 80 mg 03/15/21 21:00 03/16/21 21:21 Atorvastatin 40 Mg Tablet PO 80 mg BEDTIME JAYJAY Administration Benzonatate 200 mg 03/16/21 19:15 03/17/21 08:06 Benzonatate 100 Mg Capsule PO 200 mg TID JAYJAY Administration Clopidogrel Bisulfate 75 mg 03/16/21 09:00 03/17/21 08:06 Clopidogrel 75 Mg Tablet PO 75 mg DAILY JAYJAY Administration Guaifenesin/Codeine Phosphate 5 ml 03/16/21 21:00 03/17/21 08:06 Guaifenesin-Codeine Udc 10 Ml PO 5 ml Q6H JAYJAY Administration Heparin Sodium (Porcine) 5,000 unit 03/16/21 18:00 03/17/21 07:38 Heparin 5,000 Unit/Ml Inj 1 Ml SUBCUT 5,000 unit Q12H JAYJAY Administration Norepinephrine Bitartrate 4 mg 254 mls @ 0 mls/hr 03/16/21 18:00 03/16/21 19:45 / Dextrose IV 2 mcg/min .Q0M JAYJAY 7.62 mls/hr Administration Protocol Per Protocol Dobutamine HCl/Dextrose 500 mg in 250 mls @ 0 mls/hr 03/16/21 18:00 03/16/21 18:08 Dobutamine Drip IV 2.5 mcg/kg/min .Q0M JAYJAY 7.31 mls/hr Administration Protocol Per Protocol Sodium Chloride 1,000 mls @ 50 mls/hr 03/16/21 19:00 03/16/21 19:33 Sodium Chloride 0.9% IV 03/17/21 14:59 50 mls/hr .Q20H JAYJAY Administration Senna 17.2 mg 03/16/21 21:00 03/16/21 21:21 Sennosides 8.6 Mg Tablet PO 17.2 mg BEDTIME JAYJAY Administration Temazepam 15 mg 03/15/21 15:27 03/16/21 21:21 Temazepam 15 Mg Capsule PO 15 mg BEDTIME PRN Administration INSOMNIA PFSH Acute PFSH: Medical History No pertinent past medical history Surgical History No pertinent past surgical history Family History Sister CAD (coronary artery disease) Social History Smoking and tobacco status: current some day smoker Vitals/I&O/Wt Last Vital Signs Temp 98.3 F 03/16/21 20:15 Pulse 77 03/17/21 06:28 Resp 19 H 03/16/21 20:15 BP 106/77 03/16/21 20:15 Pulse Ox 96 03/16/21 20:15 03/16/21 03/17/21 03/17/21 22:59 06:59 14:59 Intake Total 120 / 120 Output Total 90 / 90 Balance 30 / 30 Weight last 48 hrs Weight 97.522 kg Physical Exam Narrative: EXAM NARRATIVE: Constitutional: Awake, comfortable HEENT: Wet mucosa, no jvp, non icteric Lungs: Bilaterally clear without discernible wheeze, rales in all lung zones CVS: S1 S2, no murmurs Abdo: Soft, BS ok Ext 4: Minimal edema, peripheral perfusion with no cyanosis Neurological: Grossly non-focal Urinary Catheter Management^: Razo: Cath Placed During This Visit: yes Reason for Continuing Indwelling Catheter: Accurate Measurement of Urinary Output in Critically Ill Patients Urinary Catheter Date of Insertion: 03/16/21 Urinary Catheter Time of Insertion: 18:00 Data Micro: Micro: Microbiology 03/16/21 18:28 Blood Culture - Pr eliminary Blood SPECIMEN RYANNE SONIA 03/16/21 18:33 Blood Culture - Pr eliminary Blood SPECIMEN [facility] SONIA A&P Additional A&P Information 1. Acute kidney injury Cardiorenal syndrome, renal hypoperfusion, hopefully resulting in prerenal azotemia although I am fearful that ischemic ATN may have now set in. Renal replacement therapy will depend on if we can temporize critical hyperkalemia whilst waiting for renal recovery. Frequent basic metabolic panels to be done. Low threshold for initiating either hemodialysis or CRRT. Limited evaluation to include fractional excretion of sodium and urinalysis. Avoid usual nephrotoxic agents Strict I's and O's Dose medication for GFR less than 15 2. Hemodynamics and ischemic heart disease Management per cardiology, obviously has severe ischemic cardiomyopathy with reduced ejection fraction status post angioplasty on 03/16 May benefit from LVAD, consideration for transfer to tertiary care center for this. Remains on aspirin, Plavix, Lipitor 3. Hyperkalemia another critical chemistry Receiving temporizing therapy with Kayexalate, dextrose, insulin Anion gap metabolic acidosis secondary to lactic acidosis Continue supportive care with inotropic therapy to help the lactic acidosis. at bedside, answered all of her questions to her satisfaction Prognosis is very guarded in this case. Rashawn Ayala MD Nephrology [phone] Patient seen and examined via telemedicine, with the assistance of the bedside RN > 25 min spent in evaluation and mgmt of patient Coding Level of Care Code Acute Manager Scheduling for Anhg Sybil
[2021-03-16 20:28] LABS: Reflex Lactate Order REFLEX LACTIC ORDERD
[2021-03-16] MEDS: atorvastatin 40 mg Tablet 80 MG PO (21:21)
[2021-03-16] MEDS: sennosides 8.6 mg Tablet 17.2 MG PO (21:21)
[2021-03-16] MEDS: guaiFENesin-codeine UDC 10 mL 5 ML PO (21:21)
[2021-03-16] MEDS: sodium bicarbonate 8.4% 1 mEq/mL 50mL Syr 50 MEQ IVP (21:21)
[2021-03-16] MEDS: temazepam 15 mg Capsule PO (21:21)
[2021-03-16 21:47] LABS: Blood Urea Nitrogen 52 mg/dL (6-20); Calcium 7.9 mg/dL (8.5-10.5); Carbon Dioxide 13 mmol/L (22-29); Chloride 103 mmol/L (98-107); Glomerular Filtration Rate 18.8 mL/min (90-130); Glucose 147 mg/dL (65-115); Osmolality Calculated 313 mOsm/kg (285-295); Sodium 143 mmol/L (136-145)
[2021-03-16 21:50] LABS: Anion Gap 33.4 (5-19); Potassium 6.4 mmol/L (3.5-5.1)
[2021-03-16 21:58] LABS: Percent Saturation 20.2 % (20-50); Total Iron Binding Capacity 292 mcg/dl; Unsaturated Iron Binding 233 ug/dL (112-347)
[2021-03-17] VITALS (61 sets, daily range): BP systolic 76–121; BP diastolic 41–84; PULSE 77–89; RESP 4–31; O2SAT 77–100
[2021-03-17 00:05] LABS: Add Urine Microscopic? YES; Bilirubin Urine 1+ (Negative); Blood Urine 3+ (Negative); Glucose Urine UA Trace (Normal); Ketones Urine 1+ (Negative); Leukocyte Esterase Urine Trace (Negative); Nitrate Urine Negative (Negative); Protein Urine 3+ (Negative); RBC Urine 0-4 /hpf (0-2); Urine Appearance Hazy (CLEAR); Urine Color Yellow (Yellow); Urobilinogen Urine 4 mg/dL (Negative); WBC Urine 0-4 /hpf (0-5); pH Urine 5 (5-7)
[2021-03-17 00:06] LABS: Add Urine Culture? Yes; Amorphous Sediment Urine 3+ /hpf; Bacteria Urine 2+ /hpf; Mucus Urine 2+ /hpf; Sperm Urine 1+ /hpf; Squamous Epithelial Cell Urine 0-4 /hpf (0-5)
[2021-03-17 00:07] LABS: Potassium, Radom Urine 75 mmol/L
[2021-03-17 00:12] LABS: Urine Random Chloride 11 mmol/L; Urine Random Sodium 18 mmol/L
[2021-03-17 00:13] LABS: Creatinine Urine, Random 141 mg/dL (39-259)
[2021-03-17 00:26] LABS: Microalbum Creatinine Ratio Ur 652 mg/dL (0-20); Microalbumin Random Urine 92 ug/dL (0-20)
[2021-03-17 00:53] LABS: Eosinophil Urine No Eosinophils Seen; Urine Eosinophil Count 0 (0-0)
[2021-03-17] MEDS: calcium gluconate 0.1 gm/mL 10% SDV 10mL 1 GM IVP (01:46)
[2021-03-17] MEDS: dextrose 50% syringe 50 mL IVP (01:47)
[2021-03-17] MEDS: insulin regular-human 10 UNIT in SYRINGE 1 EACH IVP (01:47)
[2021-03-17] MEDS: sodium polystyrene sulfonate 15 gm/60 mL Btl PO (01:48)
[2021-03-17] MEDS: guaiFENesin-codeine UDC 10 mL 5 ML PO ×2 (02:03→08:06)
--- NOTE | 2021-03-17 06:28 | ECG_ITS ---
[facility] Test Date: 2021-03-17 Pat Name: Jose Antonio Garrett Department: Room: ICU08 Gender: Male Heel Cover Splitter: : 1965 Requested By: Janice Babcock Order Number: [id number] Carmen MD: Ajit Colby M.D. Measurements Intervals [place] Rate: 76 P: PA: QRS: 52 QRSD: 155 T: -30 QT: 443 QTc: 501 Interpretive Statements ATRIAL FIBRILLATION WITH ABERRANT CONDUCTION OR VENTRICULAR PREMATURE COMPLEXES RIGHT BUNDLE BRANCH BLOCK [120+ ms QRS DURATION, UPRIGHT V1, 40+ ms S IN I/aVL/V4/V5/V6] ST elevation, suggesting anterolateral wall myocardial infarction Compared to ECG 03/16/2021 10:33:39 Ventricular premature complex(es) now present Aberrant conduction of supraventricular beat(s) now present Sinus rhythm no longer present Indeterminate axis no longer present Myocardial infarct finding no longer present Electronically Signed On 03-17-2021 20:44:37 TELEVISION ANALYZER by Ajit Colby M.D. [id number]
--- NOTE | 2021-03-17 06:44 | PC.NURSE ---
Patient woke up confused and accidentally pulled out right peripheral IV mistaking it for his shahid catheter tubing. Two new peripheral IVs started via ultrasound guide. Patient linens and gown changed. Patient stable and resting comfortably.
[2021-03-17] MEDS: heparin 5,000 unit/mL INJ 1 mL 5000 UNIT SUBCUT (07:38)
--- NOTE | 2021-03-17 07:58 | P.PN_ITS ---
Subjective Subjective: Interval history: Patient had hypotension yesterday with cold extremities and worsening renal failure. Lactate level was elevated up to 7.9. We transferred him to ICU. Levophed and dobutamine gtt were started. Vitals/I&O/Wt Last Vital Signs Temp 98.3 F 03/16/21 20:15 Pulse 77 03/17/21 06:28 Resp 19 H 03/16/21 20:15 BP 106/77 03/16/21 20:15 Pulse Ox 96 03/16/21 20:15 03/16/21 03/17/21 03/17/21 22:59 06:59 14:59 Output Total 90 / 90 Balance -90 / -90 Weight last 48 hrs Weight 215 lb Physical Exam Narrative: EXAM NARRATIVE: GENERAL: Patient is alert, awake and oriented x3. [] NECK: No jugular vein distension. [] HEENT: No cyanosis. No icterus. No pallor. [] HEART: Tachycardia, Regular S1 and S2. LUNGS: Clear to auscultate bilaterally. [] ABDOMEN: Soft, nontender and nondistended. Positive bowel sounds. No guarding, rebound or tenderness. [] CENTRAL NERVOUS SYSTEM: Grossly nonfocal. [] EXTREMITIES: Lower extremities with 1+ edema bilaterally. Pulses palpable in the lower extremities, both dorsalis pedis and posterior tibial. [] Urinary Catheter Management^: Razo: Cath Placed During This Visit: yes Reason for Continuing Indwelling Catheter: Accurate Measurement of Urinary Output in Critically Ill Patients Urinary Catheter Date of Insertion: 03/16/21 Urinary Catheter Time of Insertion: 18:00 Data : 03/17/21 08:40 03/16/21 21:19 Micro: Microbiology 03/16/21 18:28 Blood Culture - Preliminary Blood SPECIMEN COLLECTED 03/16/21 18:33 Blood Culture - Preliminary Blood SPECIMEN COLLECTED A&P Assessment and plan (1) ST elevation myocardial infarction (STEMI): Status: Acute (2) Tobacco abuse: Status: Acute (3) SANAM (acute kidney injury): Status: Acute (4) HFrEF (heart failure with reduced ejection fraction): Status: Acute (5) Cardiogenic shock: Status: Acute Patient presented late with anterolateral STEMI. Likely culprit appears to be LAD. However he had completed infarct, with almost complete resolution of chest pain, troponin over 3000. Attempt at revascularization of LAD was unsuccessful. LV gram showed severely reduced LVEF of 15 to 20%. Balloon angioplasty of OM1 done. Yesterday patient developed cardiogenic shock with hypotension, increasing lactate, kidney failure and cold lower extremities. He was started on dobutamine and Levophed gtt. patient transferred to ICU Worsening renal failure, this is secondary to combination of cardiogenic shock and ABDOULAYE. Nephrology on board. Likely will need to dialysis. Appreciate nephrology recommendations Medical therapy Aspirin and Plavix. High intensity statin therapy. ECHO shows EF of 10-15%. Metoprolol held secondary to cardiogenic shock Patient will need LifeVest at time of discharge. Prognosis is guarded Attestations Medical Necessity Statement*: Care expected to cross 2 midnights. Patient had presented with delayed STEMI presentation. Now has developed cardiogenic shock, on levophed and dobutamine gtt. May need dialysis Coding Level of Care Code Acute Clinical Sociologist for g Fw Diagnoses ST elevation myocardial infarction (STEMI) I21.3 Tobacco abuse Z72.0 SANAM (acute kidney injury) N17.9 HFrEF (heart failure with reduced ejection fraction) I50.20 Cardiogenic shock R57.0
[2021-03-17] MEDS: clopidogrel 75 mg Tablet PO (08:06)
[2021-03-17] MEDS: aspirin 81 mg EC Tablet PO (08:06)
[2021-03-17] MEDS: benzonatate 100 mg Capsule 200 MG PO ×3 (08:06→21:02)
[2021-03-17 08:53] LABS: Basophils % 0.1 %; Hematocrit 44.2 % (42.0-52.0); Hemoglobin 14.5 g/dL (11.7-16.6); Lymphocytes # 0.7 10^3/uL (0.8-4.8); Lymphocytes % 5.1 %; Mean Corpuscular HGB Conc 32.8 g/dL (30.0-36.0); Mean Corpuscular Hemoglobin 30.5 pg (28.0-34.0); Mean Corpuscular Volume 92.9 fl (80-94); Mean Platelet Volume 12.9 fL (7.4-10.4); Monocytes # 0.5 10^3/uL (0.2-0.9); Neutrophils # 12.21 10^3/uL (1.8-7.7); Neutrophils % 90.4 %; Nucleated Red Blood Cells % 0 %; Red Blood Count 4.76 10^6/uL (4.1-5.3); Red Cell Distribution Width 13.3 % (12.1-15.1); White Blood Count 13.5 10^3/uL (4.0-10.0)
[2021-03-17 08:54] LABS: Platelet Count 78 10^3/cmm (130-400)
[2021-03-17 09:15] LABS: Chloride 89 mmol/L (98-107); Potassium 5.4 mmol/L (3.5-5.1); Sodium 129 mmol/L (136-145)
--- NOTE | 2021-03-17 09:26 | PM.PN ---
Subjective Subjective: Interval history: Overnight patient has remained on dobutamine of 5, Levophed of 4 without any arrhythmia. Today morning his mean arterial pressure is 74 with at bedside. Minimal urine output of 40 cc overnight. Patient looks comfortable. Denies any active complaints. Vitals/I&O/Wt Last Vital Signs Temp 98.3 F 03/16/21 20:15 Pulse 77 03/17/21 06:28 Resp 19 H 03/16/21 20:15 BP 106/77 03/16/21 20:15 Pulse Ox 96 03/16/21 20:15 03/16/21 03/17/21 03/17/21 22:59 06:59 14:59 Output Total 90 / 90 Balance -90 / -90 Weight last 48 hrs Weight 97.522 kg Physical Exam Narrative: EXAM NARRATIVE: EXAM NARRATIVE: General: Acute distress because of cough, AOx3, peripheries perfusing HEENT: PERRLA, pupils bilaterally equal and reactive Chest: Bilateral normal vesicular sounds, equal good air entry, fine crackles bilateral lower zone CVS: S1-S2 regular, pansystolic murmur present at apex rating to mid axillary line, no tachycardia, no gallops, no rubs Abdomen: Soft, nontender, no organomegaly, bowel sounds present, morbidly obese Neuro: No focal deficits, no facial deformity, AO x3, power 5/5 in all limbs Urinary Catheter Management^: Razo: Cath Placed During This Visit: yes Reason for Continuing Indwelling Catheter: Accurate Measurement of Urinary Output in Critically Ill Patients Urinary Catheter Date of Insertion: 03/16/21 Urinary Catheter Time of Insertion: 18:00 Data : 03/17/21 08:40 03/17/21 07:26 Micro: Microbiology 03/16/21 18:28 Blood Culture - Preliminary Blood SPECIMEN COLLECTED 03/16/21 18:33 Blood Culture - Preliminary Blood SPECIMEN COLLECTED A&P Assessment and plan (1) Cardiogenic shock: Status: Acute (2) ST elevation myocardial infarction (STEMI): Status: Acute (3) SANAM (acute kidney injury): Status: Acute (4) HFrEF (heart failure with reduced ejection fraction): Status: Acute (5) Hyperkalemia: Status: Acute (6) High anion gap metabolic acidosis: Status: Acute Additional A&P Information 56-year-old gentleman presented to the hospital with delayed presentation of ST elevation GA, post emergent cardiac cath with failure of scientology of blood flow after multiple balloon angioplasty to LAD, post PCI to OM1 found to have worsening renal functions, hyperkalemia with low blood pressures and cool peripherally. Cardiogenic shock: Secondary to delayed presentation of ST elevation GA and severe LV dysfunction. Keep mean arterial pressure over 65, saturation over 92%. Continue with dobutamine and Levophed. If blood pressures drop below 65 mmHg can drop dobutamine back to 2.5. For now hold off on metoprolol. Gentle IV hydration with normal saline at 50 cc/h while monitoring for fluid overload. Repeat lactate at 2 PM. Acute kidney injury: Hyperkalemia: Secondary to ATN from cardiogenic shock and cardiorenal syndrome. BMP stable. Creatinine slightly increasing. Potassium high but not critical. Appreciate nephrology recommendations. Repeat BMP at 2 PM to decide about dialysis. Fluid and pressors as above. Monitor intake output strictly. High anion gap metabolic acidosis: Secondary to acute kidney injury. Continue to monitor. ST elevation GA: Post PCI to OM1. Continue with aspirin, Plavix, statin. Withhold beta-dolly for now given cardiogenic shock. Given thrombocytopenia today we will hold off on any further heparin. Case discussed with cardiology. Trying to transfer to a higher center for possible LVAD. CODE STATUS: Discussed in detail with family at bedside. Full code. Mechanical soft cardiac diet. Heparin for DVT prophylaxis. Protonix for PUD prophylaxis. Severely guarded prognosis. Discussed in detail with patient's at bedside. All the questions were answered. Attestations Medical Necessity Statement*: Requires further hospitalization for management of acute kidney injury, hyperkalemia, high anion gap metabolic acidosis secondary to cardiogenic shock in setting of severe LV dysfunction and ST elevation GA Critical Care Time: The high probability of a clinically significant, sudden or life threatening deterioration of the patient's [cardiac, renal] system(s) required my full and direct attention, intervention and personal management. The critical care time is as shown. This time is in addition to time spent performing any reported procedures but includes the following: [x] Data and vital sign review and interpretation [x] Patient assessment, examination and intervention [x] Documentation [x] Medication orders and management Critical Care Time (min): 90 Coding Level of Care Code Acute Wide Area Network Systems Administrator for Дмитрий Devine Diagnoses Cardiogenic shock R57.0 ST elevation myocardial infarction (STEMI) I21.3 SANAM (acute kidney injury) N17.9 HFrEF (heart failure with reduced ejection fraction) I50.20 Hyperkalemia E87.5 High anion gap metabolic acidosis E87.2
[2021-03-17 09:35] LABS: Albumin Level 3.5 g/dL (3.5-5.2); Alkaline Phosphatase 116 IU/L (40-130)
[2021-03-17 09:43] LABS: Globulin 2.4 g/dL (1.3-4.6)
[2021-03-17 09:45] LABS: Anion Gap 30.4 (5-19); Blood Urea Nitrogen 59 mg/dL (6-20); Calcium 7.6 mg/dL (8.5-10.5); Carbon Dioxide 15 mmol/L (22-29); Estmated Average Glucose 120; Glomerular Filtration Rate 16.5 mL/min (90-130); Glucose 116 mg/dL (65-115); Hemoglobin A1C 5.8 % (4.0-6.0); Osmolality Calculated 286 mOsm/kg (285-295)
[2021-03-17 09:46] LABS: Total Bilirubin 1.8 mg/dL (0.15-1.2); Total Protein 5.9 g/dL (6.6-8.7)
--- NOTE | 2021-03-17 09:48 | PC.CHAP ---
Pastoral Care Encounter/Spiritual Assessment Type of Contact [] Declined non destructive testing technician visit [] Patient/Family/Request visit [] Outpatient visit [x] Follow-up visit [] Physician referral [] Code/Alert [x] Routine visit [] Staff referral [] Actively dying [] Patient sleeping [x] Family support [] [] Out of room [] Palliative care [] [] Receiving care in room [] Pre-surgical visit [] Trauma [] Long length of stay [x] ICU visit [x] Other: patient not speaking much... family present... Relational/Emotional Strength [] Patient feels connected with others/family/visitors/staff [] Distress [] Loneliness/isolation [] Abandonment Spirituality of Patient [] Person of Nora [] Attends Religious of their Nora [] Believes in Prayer [] Reads Bible or Taoism materials [] There are Spiritual issues to be addressed Dynamite Cartridge Crimper Interventions [x] Prayer [] Active listening [] Non-anxious presence [] Spiritual/emotional support [] Crisis/trauma care [] Spiritual counseling [] Bereavement support [] Provided bereavement packet [] Provided Bible/devotional materials [] Provided toy/stuffed animal, coloring book to patient or family member [] Provided Communion [] Anointing/[place] [] Salvation [x] Completed spiritual assessment [] Other: Impact on Illness or Injury [] Angry [] Fearful [] Anxious [] Often cries [] Exhaustion [] Unable to work [] Unable to attend pentecostalism [] Unable to walk/stand [] Unable to read [] Unable to drive [] Unable to eat/drink [] Unable to sleep [] Unable to be with family [] Patient intubated [] Other: Summary Time spent with patient
[2021-03-17 10:57] LABS: Alanine Aminotransferase 3987 U/L (0-41)
--- NOTE | 2021-03-17 11:12 | P.PN_ITS ---
Subjective Subjective: Interval history: Mr. Rao feels generally okay today, still remains quite weak. Urine output over night remains somewhat poor. It did seem to draft roller picker this morning. Hemo dynamics more robust on combination inotropic therapy overnight. No extremity edema, shortness of breath or other hypervolemic symptoms. No overt uremic symptoms. Received temporizing therapy for hyperkalemia overnight. Vitals/I&O/Wt Last Vital Signs Temp 98.3 F 03/16/21 20:15 Pulse 77 03/17/21 06:28 Resp 19 H 03/16/21 20:15 BP 106/77 03/16/21 20:15 Pulse Ox 96 03/16/21 20:15 03/16/21 03/17/21 03/17/21 22:59 06:59 14:59 Intake Total 120 / 120 Output Total 90 / 90 Balance 30 / 30 Weight last 48 hrs Weight 97.522 kg Physical Exam Narrative: EXAM NARRATIVE: Constitutional: Awake, comfortable HEENT: Wet mucosa, no jvp, non icteric Lungs: Bilaterally clear without discernible wheeze, rales in all lung zones CVS: S1 S2, no murmurs Abdo: Soft, BS ok Ext 4: Minimal edema, peripheral perfusion with no cyanosis Neurological: Grossly non-focal Urinary Catheter Management^: Razo: Cath Placed During This Visit: yes Reason for Continuing Indwelling Catheter: Accurate Measurement of Urinary Output in Critically Ill Patients Urinary Catheter Date of Insertion: 03/16/21 Urinary Catheter Time of Insertion: 18:00 Data : 03/17/21 08:40 03/17/21 07:26 Micro: Microbiology 03/16/21 18:28 Blood Culture - Preliminary Blood SPECIMEN COLLECTED 03/16/21 18:33 Blood Culture - Preliminary Blood SPECIMEN COLLECTED A&P Additional A&P Information 1. Acute kidney injury Cardiorenal syndrome, renal hypoperfusion, hopefully resulting in prerenal az otemia although I am fearful that ischemic ATN may have now set in, low urinary sodium more reassuring Todays labs look a little better but non-critical, creatinine increasing, repeat BMP at 2pm Avoid usual nephrotoxic agents Strict I's and O's Dose medication for GFR less than 15 2. Hemodynamics and ischemic heart disease Management per cardiology, obviously has severe ischemic cardiomyopathy with reduced ejection fraction status post angioplasty on 03/16 May benefit from LVAD, consideration for transfer to tertiary care center for this. Remains on aspirin, Plavix, Lipitor 3. Hyperkalemia another critical chemistry Potassium non critical this morning Anion gap metabolic acidosis secondary to lactic acidosis Continue supportive care with inotropic therapy to help the lactic acidosis. at bedside, answered all of her questions to her satisfaction Prognosis is very guarded in this case. Rashawn Ayala MD Nephrology [phone] Patient seen and examined via telemedicine, with the assistance of the bedside RN > 25 min spent in evaluation and mgmt of patient Attestations Medical Necessity Statement*: Eval for SANAM Coding Level of Care Code Acute Conventions Reservationist for Chg Sybil
[2021-03-17 14:40] LABS: Blood Urea Nitrogen 67 mg/dL (6-20); Calcium 6.3 mg/dL (8.5-10.5); Carbon Dioxide 19 mmol/L (22-29); Chloride 91 mmol/L (98-107); Glomerular Filtration Rate 14.7 mL/min (90-130); Glucose 121 mg/dL (65-115); Osmolality Calculated 289 mOsm/kg (285-295); Sodium 129 mmol/L (136-145)
[2021-03-17 14:49] LABS: Lactate (Lactic Acid level) 4.6 mmol/L (0.5-2.2)
[2021-03-17] MEDS: DOBUTamine drip 500 MG/250 ML PREMIX 21.94 MG IV (16:09)
--- NOTE | 2021-03-17 17:40 | USCV_ITS ---
Jose Antonio Garrett Age: 56 Gender: M : 1965 Exam Date: 03/17/2021 06:55 Ordering Phys: Acosta Wang MD Technologist: Vianca Hunt Exam Location: [facility] – [place]_ Indication: POST CATH NUMBNESS Risk Factors: Previous Vascular Surgery: RIGHT LEFT BP: 86.00 / BP: / Waveform Velocity (cm/s) Velocity (cm/s) Waveform Triphasic 81.6 Iliac Prox 64.7 Triphasic Triphasic 75.2 Iliac Mid 67.5 Triphasic Triphasic 77.9 Iliac Distal 71.5 Triphasic Triphasic 110.3 PRESSFITTER 57.3 Triphasic Triphasic 62.8 SFA Prox 76.9 Triphasic Triphasic 61.5 SFA Mid 73.5 Triphasic Triphasic SFA Dist Triphasic 44.4 49.6 Triphasic 35.0 POP 34.2 Triphasic Biphasic 40.8 TURFGRASS MANAGEMENT PROFESSOR 22.5 Biphasic Biphasic 36.2 DPA 53.6 Biphasic 1.0 MARTHA 1.0 FINDINGS Normal resting ABIs bilaterally-1.0 on both sides near normal arterial Doppler waveforms bilaterally Minimal plaques in the iliac, femoral and popliteal arteries bilaterally. CONCLUSIONS No significant arterial obstruction, based on the above findings. Minimal plaques in the iliac, femoral and popliteal arteries bilaterally Dr Ajit Colby MD [facility] (Electronically Signed) Final Date: 17 March 2021 19:38 S
--- NOTE | 2021-03-17 17:45 | US_ITS ---
WS: [id number] ULTRASOUND RENAL TECHNIQUE: Ultrasound examination of both kidneys. CLINICAL INFORMATION: nicole COMPARISON: None. FINDINGS: A few small subcentimeter bilateral renal cysts. RIGHT: Right kidney is normal in size and appearance. Echogenicity: Normal. Cortical thickness: 0.9 cm; Normal. Hydronephrosis: None. Perinephric fluid: None. Right kidney measures: 12.7 cm x 5.5 cm x 5.2 cm. LEFT: Left kidney is normal in size and appearance. Echogenicity: Normal. Cortical thickness: 0.8 cm; Normal. Hydronephrosis: None. Perinephric fluid: None. Left kidney measures: 12.7 cm x 5.4 cm x 4.7 cm. Normal visualized aorta.. Razo catheter in place US/US renal BI* [id number] IMPRESSION: 1. No hydronephrosis in either kidney. 2. Razo catheter in the bladder. 3. A few small subcentimeter bilateral renal cysts.
[2021-03-17] MEDS: atorvastatin 40 mg Tablet 80 MG PO (21:02)
[2021-03-17] MEDS: sennosides 8.6 mg Tablet 17.2 MG PO (21:02)
[2021-03-18] VITALS (93 sets, daily range): BP systolic 93–122; BP diastolic 59–88; PULSE 80–97; RESP 0–31; TEMP 36.3–37.7; O2SAT 79–100
--- NOTE | 2021-03-18 01:23 | PC.NURSE ---
SHift summary (day shift 03/17/2021): Patient rested in bed throughout most of the day, but was able to get up to a chair for the last 2 hours of shift. Ambulates with minimal assistance and no decompensation. Oxygen weaned from 3LNC to room air. At end of shift patient is maintaining a MAP of 65+ on 2 mcg/min of levophed and 5 mc/kg/min of dobutamine. Total urine output for the 12 hour shift was 400mL.
[2021-03-18 04:14] LABS: Basophils % 0.1 %; Hematocrit 39.7 % (42.0-52.0); Hemoglobin 13.9 g/dL (11.7-16.6); Lymphocytes # 0.6 10^3/uL (0.8-4.8); Lymphocytes % 5.8 %; Mean Corpuscular Hemoglobin 31.3 pg (28.0-34.0); Mean Corpuscular Volume 89.4 fl (80-94); Mean Platelet Volume 13.7 fL (7.4-10.4); Monocytes # 0.3 10^3/uL (0.2-0.9); Neutrophils # 9.66 10^3/uL (1.8-7.7); Neutrophils % 90.5 %; Nucleated Red Blood Cells % 0 %; Red Blood Count 4.44 10^6/uL (4.1-5.3); Red Cell Distribution Width 13.2 % (12.1-15.1); White Blood Count 10.7 10^3/uL (4.0-10.0)
[2021-03-18 04:26] LABS: Lactate (Lactic Acid level) 3.4 mmol/L (0.5-2.2)
[2021-03-18 05:12] LABS: Platelet Count 74 10^3/cmm (130-400); Slide Review Slide Review Perform
--- NOTE | 2021-03-18 06:17 | PC.NURSE ---
Shift summary: Patient rested in bed throughout the night. Dobutamine and levophed were not titrated. MAP was maintained at 65+ on 2 mcg/min of levophed and 5mcg/kg/min of dobutamine. Urine output continues to improve despite discontinuing maintenance fluid. Total output over 12 hour shift was 1,000 mL (0.85 ml/KG/hr)
--- NOTE | 2021-03-18 07:11 | USCV_ITS ---
GerryJose Antonio antunez Age: 56 Gender: M : 1965 Exam Date: 03/18/2021 07:33 Ordering Phys: Elton Nickerson M.D ([email or web address]) Technologist: MILES [place] [facility] [place]ication: R/O THROMBUS LV BP: 109 / 77 HR: 83 Rhythm: Sinus Technical Quality: Adequate MEASUREMENTS (Male / Female) Normal Values 2D ECHO LV Diastolic Diameter PLAX 7.0 cm 4.2 - 5.9 / 3.9 - 5.3 cm LV Systolic Diameter PLAX 5.8 cm LV Chamber Size 5.9 cm IVS Diastolic Thickness 0.9 cm 0.6 - 1.0 / 0.6 - 0.9 cm IVS Systolic Thickness 1.6 cm LVPW Diastolic Thickness 1.4 cm 0.6 - 1.0 / 0.6 - 0.9 cm LVPW Systolic Thickness 1.5 cm RV Chamber Size 3.9 cm LVOT Diameter 2.1 cm LV Ejection Fraction 2D Teich 34.5 % LV Ejection Fraction MOD 2C 16.4 % LV Ejection Fraction 2C AL 14.5 % LA Diameter 3.9 cm LA Width 4.1 cm LA Height 4.5 cm RA Width 4.4 cm RA Height 4.5 cm Aorta at Sinotubular Diameter 3.6 cm M-MODE Aortic Annulus Diameter 3.2 cm LA Ao Ratio MM 1.4 MV E Point Septal Separation 1.5 cm FINDINGS Left Ventricle Right Ventricle Right Atrium Left Atrium Mitral Valve Aortic Valve Tricuspid Valve Pulmonic Valve Pericardium Aorta CONCLUSIONS This is a limited echocardiogram performed to rule out LV thrombus and to assess LV systolic function. LV systolic function is severely reduced with EF of 15%. No LV thrombus is seen. Compared to prior echocardiogram from 03/15/2021, no significant changes are seen. Elton Nickerson MD (Electronically Signed) Final Date: 18 March 2021 11:29 S
[2021-03-18 07:46] LABS: Albumin Level 2.8 g/dL (3.5-5.2); Alkaline Phosphatase 121 IU/L (40-130); Blood Urea Nitrogen 59 mg/dL (6-20); Calcium 6.1 mg/dL (8.5-10.5); Carbon Dioxide 17 mmol/L (22-29); Chloride 96 mmol/L (98-107); Glomerular Filtration Rate 25.6 mL/min (90-130); Glucose 102 mg/dL (65-115); Osmolality Calculated 287 mOsm/kg (285-295); Sodium 130 mmol/L (136-145); Total Bilirubin 1.8 mg/dL (0.15-1.2); Total Protein 4.8 g/dL (6.6-8.7)
[2021-03-18 07:55] LABS: Anion Gap 20.7 (5-19); Potassium 3.7 mmol/L (3.5-5.1)
[2021-03-18 08:01] LABS: Alanine Aminotransferase 2790 U/L (0-41)
[2021-03-18 08:03] LABS: Lactate (Lactic Acid level) 3.2 mmol/L (0.5-2.2)
[2021-03-18 08:07] LABS: Aspartate Amino Transferase 4414 U/L (0-40)
--- NOTE | 2021-03-18 08:53 | P.PN_ITS ---
Subjective Subjective: Interval history: Patient is feeling better.His renal function and LFTs have markedly improved. Urine output increased significantly last night. Maintaining blood pressure with Levophed. Vitals/I&O/Wt Last Vital Signs Temp 98.4 F 03/18/21 08:15 Pulse 83 03/18/21 08:30 Resp 16 03/18/21 08:15 BP 108/80 03/18/21 08:30 Pulse Ox 97 03/18/21 08:30 03/17/21 03/18/21 03/18/21 22:59 06:59 14:59 Intake Total 296.062 / 561.068 203.311 / 764.379 Output Total 475 / 790 725 / 1515 150 / 150 Balance -178.938 / -228.932 -521.689 / -750.621 -150 / -150 Physical Exam Narrative: EXAM NARRATIVE: GENERAL: Patient is alert, awake and oriented x3. [] NECK: No jugular vein distension. [] HEENT: No cyanosis. No icterus. No pallor. [] HEART: Tachycardia, Regular S1 and S2. LUNGS: Clear to auscultate bilaterally. [] ABDOMEN: Soft, nontender and nondistended. Positive bowel sounds. No guarding, rebound or tenderness. [] CENTRAL NERVOUS SYSTEM: Grossly nonfocal. [] EXTREMITIES: Lower extremities with 1+ edema bilaterally. Pulses palpable in the lower extremities, both dorsalis pedis and posterior tibial. [] Urinary Catheter Management^: Razo: Cath Placed During This Visit: yes Reason for Continuing Indwelling Catheter: Accurate Measurement of Urinary Output in Critically Ill Patients Urinary Catheter Date of Insertion: 03/16/21 Urinary Catheter Time of Insertion: 18:00 Data : 03/18/21 03:34 03/18/21 06:54 Micro: Microbiology 03/16/21 18:28 Blood Culture - Preliminary Blood NEGATIVE TO DATE 03/16/21 18:33 Blood Culture - Preliminary Blood NEGATIVE TO DATE A&P Assessment and plan (1) ST elevation myocardial infarction (STEMI): Status: Acute (2) Tobacco abuse: Status: Acute (3) SANAM (acute kidney injury): Status: Acute (4) HFrEF (heart failure with reduced ejection fraction): Status: Acute (5) Cardiogenic shock: Status: Acute Patient presented late with anterolateral STEMI. Likely culprit appears to be LAD. However he had completed infarct, with almost complete resolution of chest pain, troponin over 3000. Attempt at revascularization of LAD was unsuccessful. LV gram showed severely reduced LVEF of 15 to 20%. Balloon angioplasty of OM1 done. Patient developed cardiogenic shock. Was put on Levophed and dobutamine. Maintaining blood pressure well. His urine output has significantly improved since yesterday. Creatinine has decreased from 4.2 to 2.6 today. I had a discussion with advanced heart failure team regarding possible LVAD placement if needed, yesterday. Because of lack of bed availability, we had a shared decision of treating patient here. Plan was to put Impella in today if labs worsen or he deteriorates clinically however he is showing significant improvement clinically and on the labs. We will hold off on support device at this time. Continue Levophed and dobutamine for today. Medical therapy Aspirin and Plavix. High intensity statin therapy. ECHO shows EF of 10-15%. Once off of pressors will start low-dose beta-blockers. Patient will need LifeVest at time of discharge. Prognosis is guarded Attestations Medical Necessity Statement*: Care expected to cross 2 midnights. Patient had presented with late presentation of STEMI. He went into cardiogenic shock with renal and liver failure. Has showed signs of improvement overnight. May need LV support device if condition worsens. Coding Level of Care Code Acute Psychological Science Professor for Дмитрий Devine Diagnoses ST elevation myocardial infarction (STEMI) I21.3 Tobacco abuse Z72.0 SANAM (acute kidney injury) N17.9 HFrEF (heart failure with reduced ejection fraction) I50.20 Cardiogenic shock R57.0
[2021-03-18] MEDS: DOBUTamine drip 500 MG/250 ML PREMIX 14.63 MG IV (09:41)
[2021-03-18] MEDS: clopidogrel 75 mg Tablet PO (09:41)
[2021-03-18] MEDS: benzonatate 100 mg Capsule 200 MG PO ×3 (09:42→20:07)
[2021-03-18] MEDS: potassium chloride ER 20 mEq Tablet 40 MEQ PO ×2 (09:42→16:11)
[2021-03-18] MEDS: aspirin 81 mg EC Tablet PO (09:42)
--- NOTE | 2021-03-18 09:48 | PM.PN ---
Subjective Subjective: Interval history: Mr. Garrett feels a little better today. No chest pain, palpitations, shortness of breath. Blood pressure is noted to be 114/82 and around this range. Urine output picked up, a total of 1575 mL yesterday. Minimal extremity edema, no shortness of breath or other hypervolemic symptoms. No uremic symptoms. Vitals/I&O/Wt Last Vital Signs Temp 98.4 F 03/18/21 08:15 Pulse 83 03/18/21 08:30 Resp 16 03/18/21 08:15 BP 108/80 03/18/21 08:30 Pulse Ox 97 03/18/21 08:30 03/17/21 03/18/21 03/18/21 22:59 06:59 14:59 Intake Total 296.062 / 561.068 203.311 / 764.379 360 / 360 Output Total 475 / 790 725 / 1515 150 / 150 Balance -178.938 / -228.932 -521.689 / -750.621 210 / 210 Physical Exam Narrative: EXAM NARRATIVE: Constitutional: Awake, comfortable HEENT: Wet mucosa, no jvp, non icteric Lungs: Bilaterally clear without discernible wheeze, rales in all lung zones CVS: S1 S2, no murmurs Abdo: Soft, BS ok Ext 4: Minimal edema, peripheral perfusion with no cyanosis Neurological: Grossly non-focal Urinary Catheter Management^: Razo: Cath Placed During This Visit: yes Reason for Continuing Indwelling Catheter: Accurate Measurement of Urinary Output in Critically Ill Patients Urinary Catheter Date of Insertion: 03/16/21 Urinary Catheter Time of Insertion: 18:00 Data : 03/18/21 03:34 03/18/21 06:54 Micro: Microbiology 03/16/21 18:28 Blood Culture - Preliminary Blood NEGATIVE TO DATE 03/16/21 18:33 Blood Culture - Preliminary Blood NEGATIVE TO DATE A&P Additional A&P Information 1. Acute kidney injury Cardiorenal syndrome, renal hypoperfusion, now in recovery; excellent news! Avoid usual nephrotoxic agents Strict I's and O's Dose medication for GFR 30-60 2. Hemodynamics and ischemic heart disease Management per cardiology, severe ischemic cardiomyopathy with reduced ejection fraction status post angioplasty on 03/16 May benefit from LVAD, consideration for transfer to tertiary care center for this. Remains on aspirin, Plavix, Lipitor Inotropic therapy 3. Hyperkalemia another critical chemistry More stable today; mild hypoNa and acidosis, monitor for now at bedside, answered all of her questions to her satisfaction Prognosis is very guarded in this case. Rashawn Ayala MD Nephrology [phone] Patient seen and examined via telemedicine, with the assistance of the bedside RN > 25 min spent in evaluation and mgmt of patient Attestations Medical Necessity Statement*: Eval for SANAM Coding Level of Care Code Acute Logistics Associate for Anhg Sybil
[2021-03-18 09:57] LABS: Magnesium 2.4 mg/dL (1.7-2.3); Phosphorus 3.5 mg/dL (2.5-4.5)
[2021-03-18] MEDS: metoclopramide 5 mg/mL SDV 2 mL IVP ×2 (10:54→17:04)
--- NOTE | 2021-03-18 11:38 | PM.PN ---
Subjective Subjective: Interval history: No events overnight. Patient has remained hemodynamically stable currently on 2 of Levophed and 5 of dobutamine with mean arterial pressure of over 70. Urine output overnight 1000 cc. Patient awake and alert sitting in bed without any active new complaints. Denies any nausea, vomiting, headache. at bedside. Vitals/I&O/Wt Last Vital Signs Temp 98.4 F 03/18/21 08:15 Pulse 83 03/18/21 08:30 Resp 16 03/18/21 08:15 BP 108/80 03/18/21 08:30 Pulse Ox 97 03/18/21 08:30 03/17/21 03/18/21 03/18/21 22:59 06:59 14:59 Intake Total 296.062 / 561.068 250.000 / 811.068 360 / 360 Output Total 475 / 790 725 / 1515 150 / 150 Balance -178.938 / -228.932 -475.000 / -703.932 210 / 210 Physical Exam Narrative: EXAM NARRATIVE: EXAM NARRATIVE: General: No acute distress, AO x3 HEENT: PERRLA, pupils bilaterally equal and reactive Chest: Bilateral normal vesicular sounds, equal good air entry, fine crackles bilateral lower zone CVS: S1-S2 regular, pansystolic murmur present at apex rating to mid axillary line, no tachycardia, no gallops, no rubs Abdomen: Soft, nontender, no organomegaly, bowel sounds present, morbidly obese Neuro: No focal deficits, no facial deformity, AO x3, power 5/5 in all limbs Extremities: Bilateral extremities cold to touch, pulses palpable, mild cyanosis of toes Urinary Catheter Management^: Razo: Cath Placed During This Visit: yes Reason for Continuing Indwelling Catheter: Accurate Measurement of Urinary Output in Critically Ill Patients Urinary Catheter Date of Insertion: 03/16/21 Urinary Catheter Time of Insertion: 18:00 Data : 03/18/21 03:34 03/18/21 06:54 Micro: Microbiology 03/16/21 23:30 Urine Culture - Preliminary Urine,Clean Catch 03/16/21 18:28 Blood Culture - Preliminary Blood NEGATIVE TO DATE 03/16/21 18:33 Blood Culture - Preliminary Blood NEGATIVE TO DATE A&P Assessment and plan (1) Cardiogenic shock: Status: Acute (2) ST elevation myocardial infarction (STEMI): Status: Acute (3) SANAM (acute kidney injury): Status: Acute (4) HFrEF (heart failure with reduced ejection fraction): Status: Acute (5) Hyperkalemia: Status: Acute (6) High anion gap metabolic acidosis: Status: Acute (7) Shock liver: Status: Acute (8) Transaminitis: Status: Acute (9) Blue toes: Most likely secondary to cardiogenic shock versus pressor requirement. Lower limb arterial Dopplers appreciated without any acute occlusion. Continue to palpate and monitor for pulses. Wean pressors as above. Status: Acute Additional A&P Information 56-year-old gentleman presented to the hospital with delayed presentation of ST elevation [place], post emergent cardiac cath with failure of advent of blood flow after multiple balloon angioplasty to LAD, post PCI to OM1 found to have worsening renal functions, hyperkalemia with low blood pressures and cool peripherally. Cardiogenic shock: Secondary to delayed presentation of ST elevation [place] and severe LV dysfunction. Stable to resolving. Keep mean arterial pressure over 65, saturation over 92%. Continue with dobutamine and Levophed. Can plan to wean Levophed to around 1 while keeping dobutamine at least at 2.5 with mean arterial pressure over 65 for 24 hours. For now hold off on metoprolol. Hold off on any further IV hydration Acute kidney injury: Hyperkalemia: Secondary to ATN from cardiogenic shock and cardiorenal syndrome. BMP improving. Creatinine trending down to 2.6 from 4.2 yesterday. Urine output improving. Hyperkalemia has resolved. Appreciate nephrology recommendations. Repeat BMP at 2 PM to decide about dialysis. Stop fluids. Weaning pressors as above. Monitor intake output strictly. Keep potassium around 4, mag around 2.5-3 to avoid arrhythmia. High anion gap metabolic acidosis: Secondary to acute kidney injury. Continue to monitor. Lactic acidosis: Resolving. 7.9 to 3.2 today. Continue pressors as above. Transaminitis: Most likely secondary to shock liver. Resolving. ST elevation [place]: Post PCI to OM1. Continue with aspirin, Plavix, statin. Withhold beta-dolly for now given cardiogenic shock. Given thrombocytopenia today we will hold off on any further heparin. Case discussed with cardiology. Trying to transfer to a higher center for possible LVAD. Appreciate repeat echocardiogram with EF 15% without LV thrombus. CODE STATUS: Discussed in detail with family at bedside. Full code. Mechanical soft renal nondialysis diet. Add Ensure with each meal SCDs for DVT prophylaxis, withholding heparin. Protonix for PUD prophylaxis. Severely guarded prognosis. Discussed in detail with patient's at bedside. All the questions were answered. Attestations Medical Necessity Statement*: Requires further hospitalization for management of cardiogenic shock in setting of recent acute CO, severe LV dysfunction, acute kidney injury, lactic acidosis, shock liver Critical Care Time: The high probability of a clinically significant, sudden or life threatening deterioration of the patient's [cardiac, renal, GI, hepatic] system(s) required my full and direct attention, intervention and personal management. The critical care time is as shown. This time is in addition to time spent performing any reported procedures but includes the following: [x] Data and vital sign review and interpretation [x] Patient assessment, examination and intervention [x] Documentation [x] Medication orders and management Critical Care Time (min): 90 Coding Level of Care Code Acute Senior Marketing Associate for [facility] Sybil Diagnoses Cardiogenic shock R57.0 ST elevation myocardial infarction (STEMI) I21.3 SANAM (acute kidney injury) N17.9 HFrEF (heart failure with reduced ejection fraction) I50.20 Hyperkalemia E87.5 High anion gap metabolic acidosis E87.2 Shock liver K72.00 Transaminitis R74.01 Blue toes R23.0
[2021-03-18] MEDS: efferdent effervescent 1 EACH DENTAL (13:11)
[2021-03-18 13:48] LABS: Creatinine, Random Urine 132 mg/dL (20-320); Protein, Total, Random 225 mg/dL (5-25); Protein/Creatinine Ratio 1.705 (0.022-0.128); Protein/Creatinine Ratio 1705 mg/g creat (22-128)
[2021-03-18 14:13] LABS: Albumin Level 2.9 g/dL (3.5-5.2); Alkaline Phosphatase 128 IU/L (40-130); Blood Urea Nitrogen 54 mg/dL (6-20); Carbon Dioxide 19 mmol/L (22-29); Chloride 95 mmol/L (98-107); Globulin 1.9 g/dL (1.3-4.6); Glomerular Filtration Rate 41.8 mL/min (90-130); Glucose 101 mg/dL (65-115); Magnesium 2.4 mg/dL (1.7-2.3); Osmolality Calculated 281 mOsm/kg (285-295); Phosphorus 2.8 mg/dL (2.5-4.5); Sodium 128 mmol/L (136-145); Total Bilirubin 1.9 mg/dL (0.15-1.2); Total Protein 4.8 g/dL (6.6-8.7)
[2021-03-18 14:18] LABS: Calcium 5.9 mg/dL (8.5-10.5)
[2021-03-18 14:19] LABS: Anion Gap 17.5 (5-19); Potassium 3.5 mmol/L (3.5-5.1)
[2021-03-18 14:26] LABS: Alanine Aminotransferase 2528 U/L (0-41)
[2021-03-18 14:27] LABS: Aspartate Amino Transferase 3152 U/L (0-40)
--- NOTE | 2021-03-18 15:52 | ECG_ITS ---
[facility] Test Date: 2021-03-18 Pat Name: Jose Antonio Garrett Department: Room: ICU08 Gender: Male Strategy Lead: : 1965 Requested By: Acosta Wang Order Number: [id number] Carmen MD: Elton Nickerson M.D. Measurements Intervals [place] Rate: 83 P: 58 WI: 144 QRS: 83 QRSD: 155 T: -29 QT: 411 QTc: 485 Interpretive Statements SINUS RHYTHM WITH OCCASIONAL SUPRAVENTRICULAR PREMATURE COMPLEXES INDETERMINATE AXIS RIGHT BUNDLE BRANCH BLOCK [120+ ms QRS DURATION, UPRIGHT V1, 40+ ms S IN I/aVL/V4/V5/V6] ANTEROLATEAL MYOCARDIAL INFARCTION , OF INDETERMINATE AGE [40+ ms Q WAVE AND/OR ST/T ABNORMALITY IN II/aVF] Compared to ECG 03/17/2021 06:38:15 Indeterminate axis now present Atrial fibrillation no longer present Ventricular premature complex(es) no longer present Aberrant conduction of supraventricular beat(s) no longer present ST (T wave) deviation no longer present Myocardial infarct finding still present Electronically Signed On 03-18-2021 21:57:38 ANIMAL HUSBANDRY MANAGER by Elton Nickerson M.D. [id number]
[2021-03-18 16:03] LABS: Albumin,Urine Random 59 %; Alpha-1-Globulins Urine Random 2 %; Alpha-2-Globulins Urine Random 7 %; Beta-Globulin,Urine Random 20 %; Gamma Globulin,Urine Random 12 %
--- NOTE | 2021-03-18 18:01 | PC.NURSE ---
patient's toes on both feet have become increasingly cyanotic with clearly demarcated deep blue areas and dull sensation. Pedal pulse still palpable, but weak and thready. Using a marker, nurse marked the boundary of the cyanosis. Nurse wrapped patient's feet with warm blankets. After a few hours, Cyanosis is retreating from the marked boundaries, patient reports greater sensation, and pulse has become more palpable. Cyanosis still present. Nurse will continue to apply warm blankets.
--- NOTE | 2021-03-18 18:07 | PC.NURSE ---
at 1545, patient had a 7 beat run of Vtach. Nurse alerted Dr matos, received orders for 40 meq of potassium, an EKG, and to alert cardiology. Orders completed, nurse alerted Dr Nickerson. No new orders received. will continue to monitor.
--- NOTE | 2021-03-18 18:08 | PC.NURSE ---
Shift Summary: Overall uneventful shift. Patient was up to a chair for most of the day. Received a bed bath and oral care supplies. Urine output for day shift 03/18/2021 is 900mL (0.92 mL/Kg/hr). Short run of Vtach noted today, there was also one last shift. Patient transfers form bed to chair with minimal assistance. Levophed was reduced to 1 mcg/min, and Dobutamine to 3mcg/kg/min and not titrated further per Dr schulz orders.
--- NOTE | 2021-03-18 19:00 | PC.NURSE ---
Visitor Visitor, , at bedside upon assessment of patient.
[2021-03-18] MEDS: atorvastatin 40 mg Tablet 80 MG PO (20:07)
[2021-03-18] MEDS: sennosides 8.6 mg Tablet 17.2 MG PO (20:08)
[2021-03-19] VITALS (93 sets, daily range): BP systolic 82–130; BP diastolic 57–88; PULSE 77–102; RESP 3–25; TEMP 36.9–37.6; O2SAT 83–97; BMI 29.9
[2021-03-19] MEDS: acetaminophen 325 mg Tablet 650 MG PO (03:34)
[2021-03-19 04:18] LABS: Basophils % 0.2 %; Eosinophils % 0.1 %; Hematocrit 38.8 % (42.0-52.0); Hemoglobin 13.6 g/dL (11.7-16.6); Lymphocytes # 0.6 10^3/uL (0.8-4.8); Lymphocytes % 6.4 %; Mean Corpuscular HGB Conc 35.1 g/dL (30.0-36.0); Mean Corpuscular Hemoglobin 30.4 pg (28.0-34.0); Mean Corpuscular Volume 86.8 fl (80-94); Monocytes # 0.5 10^3/uL (0.2-0.9); Monocytes % 4.7 %; Neutrophils # 8.39 10^3/uL (1.8-7.7); Neutrophils % 87.5 %; Nucleated Red Blood Cells % 0 %; Platelet Count 71 10^3/cmm (130-400); Red Blood Count 4.47 10^6/uL (4.1-5.3); Red Cell Distribution Width 13.2 % (12.1-15.1); White Blood Count 9.6 10^3/uL (4.0-10.0)
[2021-03-19 04:38] LABS: Albumin Level 2.6 g/dL (3.5-5.2); Alkaline Phosphatase 141 IU/L (40-130); Blood Urea Nitrogen 35 mg/dL (6-20); Calcium 6.4 mg/dL (8.5-10.5); Carbon Dioxide 20 mmol/L (22-29); Chloride 97 mmol/L (98-107); Glomerular Filtration Rate 62.4 mL/min (90-130); Glucose 97 mg/dL (65-115); Osmolality Calculated 276 mOsm/kg (285-295); Sodium 129 mmol/L (136-145); Total Bilirubin 2.3 mg/dL (0.15-1.2); Total Protein 4.6 g/dL (6.6-8.7)
[2021-03-19 04:40] LABS: Anion Gap 15.8 (5-19); Potassium 3.8 mmol/L (3.5-5.1)
[2021-03-19 04:50] LABS: Alanine Aminotransferase 1846 U/L (0-41)
[2021-03-19 04:53] LABS: Aspartate Amino Transferase 1593 U/L (0-40)
--- NOTE | 2021-03-19 07:32 | PC.NURSE ---
Cyanosis Cyanosis on bilateral toes remains. During shift, cyanosis did not extend past previous boundary reardon. Warm blankets applied to feet periodically throughout night to facilitate perfusion. See neurovascular assessments for details.
--- NOTE | 2021-03-19 07:45 | P.PN_ITS ---
Subjective Subjective: Interval history: Patient has significant improvement. Feels better. His renal function has improved significantly. LFTs coming down. Vitals/I&O/Wt Last Vital Signs Temp 98.5 F 03/19/21 04:00 Pulse 83 03/19/21 06:30 Resp 17 03/19/21 05:30 BP 120/80 03/19/21 06:30 Pulse Ox 93 03/19/21 06:30 03/18/21 03/19/21 03/19/21 22:59 06:59 14:59 Intake Total 478 / 1138 Output Total 600 / 900 950 / 1850 Balance -122 / 238 -950 / -712 Weight last 48 hrs Weight 220 lb 6.4 oz Physical Exam Narrative: EXAM NARRATIVE: GENERAL: Patient is alert, awake and oriented x3. [] NECK: No jugular vein distension. [] HEENT: No cyanosis. No icterus. No pallor. [] HEART: Tachycardia, Regular S1 and S2. LUNGS: Clear to auscultate bilaterally. [] ABDOMEN: Soft, nontender and nondistended. Positive bowel sounds. No guarding, rebound or tenderness. [] CENTRAL NERVOUS SYSTEM: Grossly nonfocal. [] EXTREMITIES: Lower extremities with 1+ edema bilaterally. Pulses palpable in the lower extremities, both dorsalis pedis and posterior tibial. [] Urinary Catheter Management^: Razo: Cath Placed During This Visit: yes Reason for Continuing Indwelling Catheter: Accurate Measurement of Urinary Output in Critically Ill Patients Urinary Catheter Date of Insertion: 03/16/21 Urinary Catheter Time of Insertion: 18:00 Data : 03/19/21 03:24 03/19/21 03:24 Micro: Microbiology 03/16/21 23:30 Urine Culture - Preliminary Urine,Clean Catch A&P Assessment and plan (1) ST elevation myocardial infarction (STEMI): Status: Acute (2) Tobacco abuse: Status: Acute (3) SANAM (acute kidney injury): Status: Acute (4) HFrEF (heart failure with reduced ejection fraction): Status: Acute (5) Cardiogenic shock: Status: Acute (6) Thrombocytopenia: Status: Acute (7) Transaminitis: Status: Acute (8) Shock liver: Status: Acute Patient presented late with anterolateral STEMI. Likely culprit appears to be LAD. However he had completed infarct, with almost complete resolution of chest pain, troponin over 3000. Attempt at revascularization of LAD was unsuccessful. LV gram showed severely reduced LVEF of 15 to 20%. Balloon angioplasty of OM1 done. Patient developed cardiogenic shock. Was put on Levophed and dobutamine. Blood pressures are much improved. Will wean off Levophed today. Continue dobutamine for now. Patient's creatinine and liver enzymes have improved significantly I had a discussion with advanced heart failure team at [facility] regarding possible LVAD placement if needed. Because of lack of bed availability, we had a shared decision of treating patient here. Plan was to put Impella in if labs worsen or he deteriorates clinically however he improved significantly. Continue dobutamine for now. Medical therapy Aspirin and Plavix. High intensity statin therapy. ECHO shows EF of 10-15%. Once off of pressors will start low-dose beta-blockers. Patient will need LifeVest at time of discharge. Attestations Medical Necessity Statement*: Care expected to cross 2 midnights. Patient pre sented with delayed presentation of [place] and went into cardiogenic shock. Patient has improving labs. Weaning off pressors. Will stay on dobutamine for now. Coding Level of Care Code Acute Coin Machine Service Repairer for [facility] Fwd Diagnoses ST elevation myocardial infarction (STEMI) I21.3 Tobacco abuse Z72.0 SANAM (acute kidney injury) N17.9 HFrEF (heart failure with reduced ejection fraction) I50.20 Cardiogenic shock R57.0 Thrombocytopenia D69.6 Transaminitis R74.01 Shock liver K72.00
--- NOTE | 2021-03-19 08:19 | PC.NURSE ---
here at this time at bedside Levophed off at this time per order
[2021-03-19] MEDS: clopidogrel 75 mg Tablet PO (09:12)
[2021-03-19] MEDS: aspirin 81 mg EC Tablet PO (09:12)
[2021-03-19] MEDS: benzonatate 100 mg Capsule 200 MG PO (09:12)
--- NOTE | 2021-03-19 09:13 | PM.PN ---
Subjective Subjective: Interval history: continues to do well. Off Levo, remains on Dobutamine. Good urine output. No edema and no other hypervolemic Sx. Vitals/I&O/Wt Last Vital Signs Temp 98.5 F 03/19/21 04:00 Pulse 89 03/19/21 08:45 Resp 13 03/19/21 08:45 BP 112/87 03/19/21 08:45 Pulse Ox 94 03/19/21 08:45 03/18/21 03/19/21 03/19/21 22:59 06:59 14:59 Intake Total 478 / 1138 240 / 240 Output Total 600 / 900 950 / 1850 Balance -122 / 238 -950 / -712 240 / 240 Weight last 48 hrs Weight 99.972 kg Physical Exam Narrative: EXAM NARRATIVE: Constitutional: Awake, comfortable HEENT: Wet mucosa, no jvp, non icteric Lungs: Bilaterally clear without discernible wheeze, rales in all lung zones CVS: S1 S2, no murmurs Abdo: Soft, BS ok Ext 4: Minimal edema, peripheral perfusion with no cyanosis Neurological: Grossly non-focal Urinary Catheter Management^: Razo: Cath Placed During This Visit: yes Reason for Continuing Indwelling Catheter: Accurate Measurement of Urinary Output in Critically Ill Patients Urinary Catheter Date of Insertion: 03/16/21 Urinary Catheter Time of Insertion: 18:00 Data : 03/19/21 03:24 03/19/21 03:24 Micro: Microbiology 03/16/21 23:30 Urine Culture - Preliminary Urine,Clean Catch A&P Additional A&P Information 1. Acute kidney injury Cardiorenal syndrome, renal hypoperfusion, now in recovery; excellent news! Avoid usual nephrotoxic agents Strict I's and O's Dose medication for GFR 30-60 2. Hemodynamics and ischemic heart disease Management per cardiology, severe ischemic cardiomyopathy with reduced ejection fraction status post angioplasty on 03/16 Remains on aspirin, Plavix, Lipitor Inotropic therapy being tapered off 3. Chemistry with non critical aberration; cont to monitor (ie no need for alkalinization etc) Acute renal issues have resolved, will follow peripherally at this time, thank you at bedside, answered all of her questions to her satisfaction Prognosis is very guarded in this case. Rashawn Ayala MD Nephrology [phone] Patient seen and examined via telemedicine, with the assistance of the bedside RN > 25 min spent in evaluation and mgmt of patient Attestations Medical Necessity Statement*: Eval for SANAM Coding Level of Care Code Acute Plastic Joint Maker for [facility]
[2021-03-19 10:24] LABS: SARS Covid-2 Antigen Negative (Negative)
--- NOTE | 2021-03-19 12:43 | P.PN_ITS ---
Subjective Subjective: Interval history: No acute events overnight other than a run of 5 seconds of NSVT. T-max 99.3 Fahrenheit. On examination laying comfortably in bed. Family at bedside. Doing better. Continues on room air. Mean arterial pressures have remained over 70. Denies any nausea, vomiting, headache. Vitals/I&O/Wt Last Vital Signs Temp 98.5 F 03/19/21 04:00 Pulse 83 03/19/21 10:00 Resp 13 03/19/21 10:00 BP 104/74 03/19/21 10:00 Pulse Ox 93 03/19/21 10:00 03/18/21 03/19/21 03/19/21 22:59 06:59 14:59 Intake Total 478 / 1138 240 / 240 Output Total 600 / 900 950 / 1850 250 / 250 Balance -122 / 238 -950 / -712 -10 / -10 Weight last 48 hrs Weight 99.972 kg Physical Exam Narrative: EXAM NARRATIVE: EXAM NARRATIVE: General: No acute distress, AO x3 HEENT: PERRLA, pupils bilaterally equal and reactive Chest: Bilateral normal vesicular sounds, equal good air entry, fine crackles bilateral lower zone CVS: S1-S2 regular, pansystolic murmur present at apex rating to mid axillary line, no tachycardia, no gallops, no rubs Abdomen: Soft, nontender, no organomegaly, bowel sounds present, morbidly obese Neuro: No focal deficits, no facial deformity, AO x3, power 5/5 in all limbs Extremities: Bilateral extremities cold to touch, pulses palpable, mild cyanosis of toes which seems to improving Urinary Catheter Management^: Razo: Cath Placed During This Visit: yes Reason for Continuing Indwelling Catheter: Accurate Measurement of Urinary Ou tput in Critically Ill Patients Urinary Catheter Date of Insertion: 03/16/21 Urinary Catheter Time of Insertion: 18:00 Data : 03/19/21 03:24 03/19/21 03:24 Micro: Microbiology 03/16/21 23:30 Urine Culture - Preliminary Urine,Clean Catch A&P Assessment and plan (1) Cardiogenic shock: Status: Acute (2) ST elevation myocardial infarction (STEMI): Status: Acute (3) SANAM (acute kidney injury): Status: Acute (4) HFrEF (heart failure with reduced ejection fraction): Status: Acute (5) Hyperkalemia: Status: Acute (6) High anion gap metabolic acidosis: Status: Acute (7) Shock liver: Status: Acute (8) Transaminitis: Status: Acute (9) Blue toes: Most likely secondary to cardiogenic shock versus pressor requirement. Lower limb arterial Dopplers appreciated without any acute occlusion. Continue to palpate and monitor for pulses. Wean pressors as above. Status: Acute Additional A&P Information 56-year-old gentleman presented to the hospital with delayed presentation of ST elevation [place], post emergent cardiac cath with failure of scientology of blood flow after multiple balloon angioplasty to LAD, post PCI to OM1 found to have worsening renal functions, hyperkalemia with low blood pressures and cool peripherally. Cardiogenic shock: Secondary to delayed presentation of ST elevation [place] and severe LV dysfunction. Resolving. Keep mean arterial pressure over 65, saturation over 92%. Hold off on Levophed. Continue with dobutamine at 3 mics for at least 24 hours keeping mean arterial pressure above the target. For now hold off on metoprolol. Hold off on any further IV hydration Acute kidney injury: Hyperkalemia: Secondary to ATN from cardiogenic shock and cardiorenal syndrome. Resolved. Creatinine back to normal. Appreciate nephrology recommendations. Weaning pressors as above. Monitor intake output strictly. Keep potassium around 4, mag around 2.5-3 to avoid arrhythmia. Repeat BMP tomorrow. High anion gap metabolic acidosis: Resolving. Secondary to acute kidney injury. Continue to monitor. Lactic acidosis: Resolving. 7.9 to 3.2 today. Continue pressors as above. Transaminitis: Most likely secondary to shock liver. Resolving. ST elevation [place]: Post PCI to OM1. Continue with aspirin, Plavix, statin. Withhold beta-dolly for now given cardiogenic shock. Given thrombocytopenia today we will hold off on any further heparin. Case discussed with cardiology. Trying to transfer to a higher center for possible LVAD. Appreciate repeat echocardiogram with EF 15% without LV thrombus. Fever: Most likely secondary to tissue injury. For now we will hold off on antibiotics. Check COVID-19 PCR. CODE STATUS: Discussed in detail with family at bedside. Full code. Mechanical soft renal nondialysis diet. Add Ensure with each meal SCDs for DVT prophylaxis, withholding heparin. Protonix for PUD prophylaxis. PT/OT. Severely guarded prognosis. Discussed in detail with patient's at bedside. All the questions were answered. Continue with ICU care. If continues to do well can stop dobutamine tomorrow and plan to transfer out of ICU to [facility]. Attestations Medical Necessity Statement*: SecondaryRequires further hospitalization for management of cardiogenic shock, resolving SANAM, shock liver cardiogenic shock in setting of ST elevation [place] with EF of 15% Critical Care Time: The high probability of a clinically significant, sudden or life threatening deterioration of the patient's [cardiac, renal] system(s) required my full and direct attention, intervention and personal management. The critical care time is as shown. This time is in addition to time spent performing any reported procedures but includes the following: [x] Data and vital sign review and interpretation [x] Patient assessment, examination and intervention [x] Documentation [x] Medication orders and management Critical Care Time (min): 80 Coding Level of Care Code Acute Print Color Operator for [facility] Fwd Diagnoses Cardiogenic shock R57.0 ST elevation myocardial infarction (STEMI) I21.3 SANAM (acute kidney injury) N17.9 HFrEF (heart failure with reduced ejection fraction) I50.20 Hyperkalemia E87.5 High anion gap metabolic acidosis E87.2 Shock liver K72.00 Transaminitis R74.01 Blue toes R23.0
[2021-03-19] MEDS: DOBUTamine drip 500 MG/250 ML PREMIX 14.63 MG IV (13:42)
[2021-03-19 15:38] LABS: Adenovirus Not Detected (NOT DETECT); Chlamydia Pneumoniae Not Detected (NOT DETECT); Coronavirus 229E,HKU1,NL63,OC4 Not Detected (NOT DETECT); Human Metapneumovirus Not Detected (NOT DETECT); Human Rhinovirus/Enterovirus Not Detected (NOT DETECT); Influenza A Not Detected (NOT DETECT); Influenza A H1 Not Detected (NOT DETECT); Influenza A H1-2009 Not Detected (NOT DETECT); Influenza A H3 Not Detected (NOT DETECT); Influenza B Not Detected (NOT DETECT); Mycoplasma Pneumoniae Not Detected (NOT DETECT); Parainfluenza Virus Type 1 Not Detected (NOT DETECT); Parainfluenza Virus Type 2 Not Detected (NOT DETECT); Parainfluenza Virus Type 3 Not Detected (NOT DETECT); Parainfluenza Virus Type 4 Not Detected (NOT DETECT); Respiratory Syncytial Virus A Not Detected (NOT DETECT); Respiratory Syncytial Virus B Not Detected (NOT DETECT); SARS-COV-2 Not Detected (NOT DETECT)
--- NOTE | 2021-03-19 17:30 | PC.PT ---
PT note; patient declines attempted evaluation this p.m., states will participate tomorrow morning.
[2021-03-19] MEDS: heparin 5,000 unit/mL INJ 1 mL 5000 UNIT SUBCUT (18:59)
--- NOTE | 2021-03-19 19:00 | PC.NURSE ---
Addendum entered by Lisa Caro RN 03/20/21 07:01: Date of note 03/19/21 Original Note: Dobutamine Drip Upon shift assessment, Dobutamine drip running at 3 mcg/kg/min while MAR shows 5 mcg/kg/min. MAR updated to reflect administration of medication.
[2021-03-19] MEDS: atorvastatin 40 mg Tablet 80 MG PO (20:31)
[2021-03-19] MEDS: sennosides 8.6 mg Tablet 17.2 MG PO (20:31)
[2021-03-19] MEDS: benzonatate 100 mg Capsule PO (20:32)
[2021-03-20] VITALS (50 sets, daily range): BP systolic 89–134; BP diastolic 56–94; PULSE 79–94; RESP 12–37; TEMP 36.2–37.6; O2SAT 89–97; BMI 29.5
[2021-03-20 03:58] LABS: Basophils % 0.3 %; Eosinophils % 0.4 %; Hematocrit 42.9 % (42.0-52.0); Hemoglobin 14.8 g/dL (11.7-16.6); Lymphocytes # 0.8 10^3/uL (0.8-4.8); Lymphocytes % 7.9 %; Mean Corpuscular HGB Conc 34.5 g/dL (30.0-36.0); Mean Corpuscular Hemoglobin 30.4 pg (28.0-34.0); Mean Corpuscular Volume 88.1 fl (80-94); Mean Platelet Volume 12.1 fL (7.4-10.4); Monocytes # 0.7 10^3/uL (0.2-0.9); Neutrophils % 83.7 %; Nucleated Red Blood Cells % 0 %; Platelet Count 87 10^3/cmm (130-400); Red Blood Count 4.87 10^6/uL (4.1-5.3); Red Cell Distribution Width 13.7 % (12.1-15.1); White Blood Count 9.8 10^3/uL (4.0-10.0)
[2021-03-20 04:26] LABS: Albumin Level 2.8 g/dL (3.5-5.2); Alkaline Phosphatase 160 IU/L (40-130); Blood Urea Nitrogen 25 mg/dL (6-20); Calcium 7.1 mg/dL (8.5-10.5); Carbon Dioxide 24 mmol/L (22-29); Chloride 97 mmol/L (98-107); Globulin 2.1 g/dL (1.3-4.6); Glomerular Filtration Rate 99.6 mL/min (90-130); Glucose 82 mg/dL (65-115); Osmolality Calculated 277 mOsm/kg (285-295); Sodium 132 mmol/L (136-145); Total Bilirubin 2.9 mg/dL (0.15-1.2); Total Protein 4.9 g/dL (6.6-8.7)
[2021-03-20 04:51] LABS: Alanine Aminotransferase 1446 U/L (0-41)
[2021-03-20 04:56] LABS: Aspartate Amino Transferase 853 U/L (0-40)
[2021-03-20] MEDS: heparin 5,000 unit/mL INJ 1 mL 5000 UNIT SUBCUT (05:52)
--- NOTE | 2021-03-20 07:04 | PC.NURSE ---
Shift Note Frequent safety and comfort rounds continue. Orders and/or nursing care completed as indicated. Patient monitored for response to intervention and treatment(s). Overall uneventful shift: patient rested throughout night, urine output total for night was 975 ml, patient's toes remain dark purple in certain areas. Dobutamine decreased slowly throughout night as BP remains stable. . Will All vitals remain stable.
[2021-03-20] MEDS: benzonatate 100 mg Capsule PO ×3 (08:29→19:50)
[2021-03-20] MEDS: clopidogrel 75 mg Tablet PO (08:29)
[2021-03-20] MEDS: aspirin 81 mg EC Tablet PO (08:29)
[2021-03-20] MEDS: fluticasone nasal spray 16gm Btl 1 SPRAY NASAL (10:39)
--- NOTE | 2021-03-20 10:55 | PM.PN ---
Subjective Subjective: Interval history: Cardiology coverage The chart was reviewed. Patient apparently went into cardiogenic shock on the second day of hospital admission. He had a multiorgan system failure. The kidney function is almost back to normal at this time. The liver enzymes have markedly come down. Patient is off the Levophed. He is currently on dobutamine 2.5 mics per KG per minute. His blood pressure is around 120/56. Heart rate is 70 bpm. He is afebrile. This morning he has some nosebleeds. No fever or chills. No cough. The LV ejection fraction was around 15%. Medications: Reviewed: Yes Medication Review Details: Current Medications Acetaminophen (Acetaminophen 325 Mg Tablet) 650 mg PO Q6H PRN PRN Reason: MILD PAIN Last Admin: 03/19/21 03:34 Dose: 650 mg Documented by: Al Hydrox/Mg Hydrox/Simethicone (Hevf-Stx-Sschvrjex-Jose 30 Ml Udc) 30 ml PO Q15M PRN PRN Reason: INDIGESTION Last Admin: 03/16/21 10:52 Dose: 30 ml Documented by: Alprazolam (Alprazolam 0.5 Mg Tablet) 0.25 mg PO TID PRN PRN Reason: ANXIETY Last Admin: 03/16/21 16:44 Dose: 0.25 mg Documented by: Aspirin (Aspirin 81 Mg Ec Tablet) 81 mg PO DAILY [facility] [place] Last Admin: 03/20/21 08:29 Dose: 81 mg Documented by: Atorvastatin Calcium (Atorvastatin 40 Mg Tablet) 80 mg PO BEDTIME [facility] [place] Last Admin: 03/19/21 20:31 Dose: 80 mg Documented by: Atropine Sulfate (Atropine 1 Mg/Ml Sdv 1 Ml) 0.5 mg IVP PRN PRN PRN Reason: Symptomatic bradycardia Benzonatate (Benzonatate 100 Mg Capsule) 100 mg PO TID [facility] [place] Last Admin: 03/20/21 08:29 Dose: 100 mg Documented by: Clopidogrel Bisulfate (Clopidogrel 75 Mg Tablet) 75 mg PO DAILY [facility] [place] Last Admin: 03/20/21 08:29 Dose: 75 mg Documented by: Fluticasone Propionate (Fluticasone Nasal [place] 16gm Btl) 1 spray NASAL DAILY [facility] [place] Last Admin: 03/20/21 10:39 Dose: 1 spray Documented by: Guaifenesin/Codeine Phosphate (Guaifenesin-Codeine Udc 10 Ml) 5 ml PO Q6H PRN PRN Reason: COUGH Heparin Sodium (Porcine) (Heparin 5,000 Unit/Ml Inj 1 Ml) 5,000 unit SUBCUT Q12H [facility] [place] Last Admin: 03/20/21 05:52 Dose: 5,000 unit Documented by: Dobutamine HCl/Dextrose (Dobutamine Drip) 500 mg in 250 mls @ 0 mls/hr IV .Q0M [facility] [place]; Protocol Last Titration: 03/20/21 10:39 Dose: 0 mcg/kg/min, 0 mls/hr Documented by: Magnesium Hydroxide (Magnesium Hydroxide 30 Ml Udc) 30 ml PO DAILY PRN PRN Reason: CONSTIPATION Metoclopramide HCl (Metoclopramide 5 Mg/Ml Sdv 2 Ml) 5 mg IVP Q6H PRN PRN Reason: NAUSEA AND VOMITING Last Admin: 03/18/21 17:04 Dose: 5 mg Documented by: Naloxone HCl (Naloxone 0.4 Mg/Ml Sdv) 0.1 mg IVP Q2M PRN PRN Reason: RESPIRATORY RATE < 8/MIN Nitroglycerin (Nitroglycerin 0.4 Mg Sublingual Tablet) 0.4 mg SUBLINGUAL Q5M PRN PRN Reason: CHEST PAIN Senna (Sennosides 8.6 Mg Tablet) 17.2 mg PO BEDTIME [facility] [place] Last Admin: 03/19/21 20:31 Dose: 17.2 mg Documented by: Vitals/I&O/Wt Last Vital Signs Temp 98.6 F 03/20/21 04:00 Pulse 83 03/20/21 06:45 Resp 24 H 03/20/21 06:45 BP 105/72 03/20/21 06:45 Pulse Ox 95 03/20/21 06:45 03/19/21 03/20/21 03/20/21 22:59 06:59 14:59 Intake Total 297.539 / 757.539 80.025 / 837.564 15.230 / 15.230 Output Total 500 / 970 675 / 1645 Balance -202.461 / -212.461 -594.975 / -807.436 15.230 / 15.230 Weight last 48 hrs Weight 218 lb 3.2 oz Weight 220 lb 6.4 oz Physical Exam Narrative: EXAM NARRATIVE: GENERAL: The patient is alert and oriented times three. Not in any acute distress. HEENT: No significant pallor, icterus or lymphadenopathy.Oral cavity: There are no mucous membrane lesions. NECK: Trachea appears to be central. No masses noted. No JVD or thyromegaly appreciated. RESPIRATORY: Chest is symmetrical. No intercostals muscle retraction or any accessory muscle activation. There is no chest wall tenderness. Breath sounds are heard bilaterally. No rales or rhonchi heard. No evidence of any consolidation. BREASTS: Deferred. HEART: The heart sounds are normal. No S3 or S4. Short systolic murmur in the left sternal border. No diastolic murmurs. No pericardial rub ABDOMEN: No vessel pulsations or distention. No tenderness. No organomegaly appreciated. Bowel sounds are normally heard. : Deferred. RECTAL: Deferred. LYMPHATIC: No lymphadenopathy noted in the neck or groin. EXTREMITIES: No edema or cyanosis. No clubbing. Peripheral pulses are palpable but weak. The peripheral cyanosis in the toes is improving MUSCULOSKELETAL: No acute joint deformities or swelling SKIN: There are no significant rashes or ecchymosis NEUROPSYCHIATRIC: The patient is alert and oriented x3. Appears to be in a good mood. No tremors or rigidity noted. Urinary Catheter Management^: Razo: Cath Placed During This Visit: yes Reason for Continuing Indwelling Catheter: Accurate Measurement of Urinary Output in Critically Ill Patients Urinary Catheter Date of Insertion: 03/16/21 Urinary Catheter Time of Insertion: 18:00 Data : 03/21/21 04:30 03/21/21 04:30 Other Labs: PT 18.90 SECONDS (12.1-14.9) H 03/15/21 17:40 APTT 31.0 SECONDS (23.9-36.7) 03/15/21 20:35 Laboratory Last Values WBC 9.8 10^3/uL (4.0-10.0) 03/20/21 02:28 Corrected WBC Cancelled 03/17/21 07:26 RBC 4.87 10^6/uL (4.1-5.3) 03/20/21 02:28 Hgb 14.8 g/dL (11.7-16.6) 03/20/21 02:28 Hct 42.9 % (42.0-52.0) 03/20/21 02:28 MCV 88.1 fl (80-94) 03/20/21 02:28 MCH 30.4 pg (28.0-34.0) 03/20/21 02:28 MCHC 34.5 g/dL (30.0-36.0) 03/20/21 02:28 RDW 13.7 % (12.1-15.1) 03/20/21 02:28 Plt Count 87 10^3/cmm (130-400) L 03/20/21 02:28 MPV 12.1 fL (7.4-10.4) H 03/20/21 02:28 Gran % Cancelled 03/17/21 07:26 Neut % (Auto) 83.7 % 03/20/21 02:28 Lymph % (Auto) 7.9 % 03/20/21 02:28 [place] % (Auto) 7.0 % 03/20/21 02:28 Eos % (Auto) 0.4 % 03/20/21 02:28 Baso % (Auto) 0.3 % 03/20/21 02:28 Neut # (Auto) 8.20 10^3/uL (1.8-7.7) H 03/20/21 02:28 Lymph # (Auto) 0.8 10^3/uL (0.8-4.8) 03/20/21 02:28 [place] # (Auto) 0.7 10^3/uL (0.2-0.9) 03/20/21 02:28 Eos # (Auto) 0.0 10^3/uL (0.0-0.8) 03/20/21 02:28 Baso # (Auto) 0.0 10^3/uL (0.0-0.1) 03/20/21 02:28 Absolute Gran (auto) Cancelled 03/17/21 07:26 Nucleated RBC % (auto) 0 % 03/20/21 02:28 Nucleated RBCs # 0.0 /100WBC 03/20/21 02:28 PT 18.90 SECONDS (12.1-14.9) H 03/15/21 17:40 INR 1.55 (0.8-1.2) H 03/15/21 17:40 APTT 31.0 SECONDS (23.9-36.7) 03/15/21 20:35 Specimen Type Arterial 03/16/21 18:45 Sample Site Radial, right 03/16/21 18:45 ABG pH 7.34 (7.35-7.45) L 03/16/21 18:45 ABG pCO2 16.9 mmHg (35-45) L* 03/16/21 18:45 ABG pO2 103.0 mmHg (80.0-100.0) H 03/16/21 18:45 ABG HCO3 9.0 mmol/L (22-26) L 03/16/21 18:45 ABG Base Excess -14.0 mmol/L (-2.0-2.0) L 03/16/21 18:45 Van Test Pos 03/16/21 18:45 Hematocrit 45.2 % (42-52) 03/16/21 18:45 O2 Delivery Device Room air 03/16/21 18:45 FiO2 21.0 % 03/16/21 18:45 Pin Ticket Machine Operator ID Ed 03/16/21 18:45 Sodium 132 mmol/L (136-145) L 03/20/21 02:28 Potassium 4.0 mmol/L (3.5-5.1) 03/20/21 02:28 Chloride 97 mmol/L (98-107) L 03/20/21 02:28 Carbon Dioxide 24 mmol/L (22-29) 03/20/21 02:28 Anion Gap 15.0 (5-19) 03/20/21 02:28 BUN 25 mg/dL (6-20) H 03/20/21 02:28 Creatinine 0.8 mg/dL (0.7-1.2) 03/20/21 02:28 GFR Calculation 99.6 mL/min (90-130) 03/20/21 02:28 Glucose 82 mg/dL (65-115) 03/20/21 02:28 POC Glucose 102 mg/dL (70-110) 03/16/21 10:32 Estimat Average Glucose 120 03/17/21 07:26 Hemoglobin A1c 5.8 % (4.0-6.0) 03/17/21 07:26 Calculated Osmolality 277 mOsm/kg (285-295) L 03/20/21 02:28 Lactic Acid 7.9 mmol/L (0.5-2.2) H* 03/16/21 18:33 Lactic Acid (Sepsis) 6.0 mmol/L (0.5-2.2) H* 03/16/21 21:19 Lactate 3.2 mmol/L (0.5-2.2) H 03/18/21 07:30 Uric Acid 8.9 mg/dL (3.4-7.0) H 03/16/21 05:00 Calcium 7.1 mg/dL (8.5-10.5) L 03/20/21 02:28 Phosphorus 2.8 mg/dL (2.5-4.5) 03/18/21 13:41 Magnesium 2.4 mg/dL (1.7-2.3) H 03/18/21 13:41 Iron 59 ug/dL (59-158) 03/16/21 15:32 TIBC 292 mcg/dl 03/16/21 15:32 % Saturation 20.2 % (20-50) 03/16/21 15:32 Unsat Iron Binding 233 ug/dL (112-347) 03/16/21 15:32 Total Bilirubin 2.9 mg/dL (0.15-1.2) H 03/20/21 02:28 AST 853 U/L (0-40) H 03/20/21 02:28 ALT 1446 U/L (0-41) H 03/20/21 02:28 Alkaline Phosphatase 160 IU/L (40-130) H 03/20/21 02:28 Creatine Kinase 176 U/L (39-308) 03/15/21 13:41 CK-MB (CK-2) 5.9 ng/mL (0-10.4) 03/15/21 13:41 CK-MB (CK-2) Rel Index % (0.0-5.3) 03/15/21 13:41 Troponin T Baseline 3308 ng/L (0-15) H* 03/15/21 13:41 Troponin T 120 Minute 3230 ng/L (0-15) H 03/15/21 17:40 Delta Troponin T -78 ABS# (0-10) L 03/15/21 17:40 Troponin T Hi Sens 6Hr 4082 ng/L (0-15) H 03/15/21 18:47 Troponin T Hi Sens 6Hr Delta 774 ng/L (0-12) H* 03/15/21 18:47 Total Protein 4.9 g/dL (6.6-8.7) L 03/20/21 02:28 Albumin 2.8 g/dL (3.5-5.2) L 03/20/21 02:28 Globulin 2.1 g/dL (1.3-4.6) 03/20/21 02:28 TSH 2.65 uIU/mL (0.27-4.20) 03/16/21 05:00 Urine Color Yellow (Yellow) 03/16/21 23:30 Urine Appearance Hazy (CLEAR) A 03/16/21 23:30 Urine pH 5 (5-7) 03/16/21 23:30 Ur Specific [place] 1.020 (1.005-1.030) 03/16/21 23:30 Urine Protein 3+ (Negative) H 03/16/21 23:30 Urine Glucose (UA) Trace (Normal) H 03/16/21 23:30 Urine Ketones 1+ (Negative) H 03/16/21 23:30 Urine Blood 3+ (Negative) H 03/16/21 23:30 Urine Nitrate Negative (Negative) 03/16/21 23:30 Urine Bilirubin 1+ (Negative) H 03/16/21 23:30 Urine Urobilinogen 4 mg/dL (Negative) H 03/16/21 23:30 Ur Leukocyte Esterase Trace (Negative) H 03/16/21 23:30 Urine RBC 0-4 /hpf (0-2) H 03/16/21 23:30 Urine WBC 0-4 /hpf (0-5) H 03/16/21 23:30 Ur Eosinophil Smear 0 (0-0) 03/16/21 23:30 Ur Squamous Epith Cells 0-4 /hpf (0-5) H 03/16/21 23:30 Amorphous Sediment 3+ /hpf 03/16/21 23:30 Urine Bacteria 2+ /hpf (NONE) H 03/16/21 23:30 Urine Mucus 2+ /hpf 03/16/21 23:30 Urine Sperm 1+ /hpf 03/16/21 23:30 Urine Eosinophils No eosinophils seen 03/16/21 23:30 Ur Random Creatinine 132 mg/dL (20-320) 03/16/21 23:30 Ur Random Albumin 59 % 03/16/21 23:30 Ur Random Microalbumin 92 ug/dL (0-20) H 03/16/21 23:30 U Random Total Protein 225 mg/dL (5-25) H 03/16/21 23:30 Ur Random Sodium 18 mmol/L 03/16/21 23:30 Ur Random Potassium 75 mmol/L 03/16/21 23:30 Ur Random Chloride 11 mmol/L 03/16/21 23:30 Urine Creatinine 141 mg/dL (39-259) 03/16/21 23:30 Microalb/Creat Ratio 652 mg/dL (0-20) H 03/16/21 23:30 Protein/Creatinin Ratio 1705 mg/g creat (22-128) H 03/16/21 23:30 Protein/Creat Ratio 24h 1.705 (0.022-0.128) H 03/16/21 23:30 U Random b-7-[id number] % 2 % 03/16/21 23:30 U Random s-3-Xsaqmnds % 7 % 03/16/21 23:30 U Random Beta Globulin 20 % 03/16/21 23:30 U Random Gamma Glob 12 % 03/16/21 23:30 U Abnormal Prot Band 1 Not Reportable 03/16/21 23:30 U Abnormal Prot Band 2 Not Reportable 03/16/21 23:30 U Abnormal Prot Band 3 Not Reportable 03/16/21 23:30 Urine PEP Interpret See note 03/16/21 23:30 Coronavirus 229E (PCR) Not detected (NOT DETECT) 03/19/21 12:20 Hepatitis A IgM Ab Non-reactive (Nonreactive) 03/16/21 18:33 Hep Bs Antigen Non-reactive (Nonreactive) 03/16/21 18:33 Hep Bs Antibody 6.5 (11.5-1000) L 03/16/21 18:33 Hep B Core Total Ab Non-reactive (Nonreactive) 03/16/21 18:33 Hepatitis C Antibody Non-reactive (Nonreactive) 03/16/21 18:33 SARS-CoV-2 (PCR) Not detected (NOT DETECT) 03/19/21 12:20 SARS-CoV-2 Ag (Rapid) Negative (Negative) 03/19/21 10:00 A&P Assessment and plan (1) Cardiogenic shock: Patient has remarkably improved. His kidney function has returned to normal. Liver enzymes are coming down. Patient may be taken off the Dobutrex at this point. We will be watching in the ICU closely for the next few hours. If he continues to remain stable, may be transferred to the telemetry floor. Status: Acute (2) HFrEF (heart failure with reduced ejection fraction): Elevation fraction was around 15%. We will continue to optimize his medications. May start him on a low-dose of losartan, if the blood pressure tolerate Status: Acute (3) ST elevation myocardial infarction (STEMI): Status post attempted PCI of the LAD. No significant improvement of the LV ejection fraction Status: Acute Qualifiers: Involved coronary artery: LAD coronary artery Qualified Code(s): I21.02 - ST elevation (STEMI) myocardial infarction involving left anterior descending coronary artery (4) Shock liver: The liver function continues to improve. Status: Acute Additional A&P Information If the patient continues to remain stable, may be transferred to the telemetry floor. We will be watching him very closely. Consider LifeVest before discharge Attestations Medical Necessity Statement*: Patient requires continued hospital stay for close monitoring and further management Coding Level of Care Code Acute Access Liaison for Дмитрий Fwtesha History Detailed Exam Detailed Medical Decision Making High Complexity Diagnoses Cardiogenic shock R57.0 HFrEF (heart failure with reduced ejection fraction) I50.20 ST elevation myocardial infarction (STEMI) I21.02 Involved coronary artery: LAD coronary artery Shock liver K72.00
--- NOTE | 2021-03-20 11:40 | PC.NURSE ---
Pt blowing nose. Left nostril bleeding, kleenex stuffed into nostril. Dr notified of nose bleed via messaging. PT then worked with pt, Pt then blew/wiped right nostril, righ nostril started to bleed. Nose clamp applied.
[2021-03-20] MEDS: acetaminophen 325 mg Tablet 650 MG PO (12:39)
--- NOTE | 2021-03-20 13:10 | PC.NURSE ---
Still has nosebleed, slightly improved. Nose clamp gave pt a headache, acetaminophen given for headache. Helped some per pt. Dr Hopson, came to unit to check on pt. Xanax 0.5mg PO and Neosynephrine spray to nose ordered and given.
[2021-03-20] MEDS: ALPRAZolam 0.5 mg Tablet PO (13:23)
--- NOTE | 2021-03-20 13:36 | P.PN_ITS ---
Subjective Subjective: Interval history: No acute events overnight. Patient has remained off Levophed. On examination on 1 mics of dobutamine. Mean arterial pressures have remained over 65. Patient denies any nausea, vomiting, headache, chest pain, difficulty in breathing. Complaining of nasal congestion. Received Flonase and after that he was trying to pick his nose and blow off and he had bilateral epistaxis for which he had nasal clamping and Afrin spray after which epistaxis resolved. Patient worked well with physical therapy and his mean artery pressure remained over 65 without any arrhythmia or change in blood pressure. Bilateral toes getting warmer and pink in color without any cyanosis. Medications: Reviewed: Yes Vitals/I&O/Wt Last Vital Signs Temp 98.5 F 03/20/21 07:30 Pulse 88 03/20/21 11:00 Resp 20 H 03/20/21 11:00 BP 119/77 03/20/21 11:00 Pulse Ox 93 03/20/21 11:00 03/19/03/20/21 03/20/21 22:59 06:59 14:59 Intake Total 297.539 / 757.539 80.025 / 837.564 415.230 / 415.230 Output Total 500 / 970 675 / 1645 350 / 350 Balance -202.461 / -212.461 -594.975 / -807.436 65.230 / 65.230 Weight last 48 hrs Weight 98.974 kg Weight 99.972 kg Physical Exam Narrative: EXAM NARRATIVE: EXAM NARRATIVE: General: No acute distress, AO x3 HEENT: PERRLA, pupils bilaterally equal and reactive Chest: Bilateral normal vesicular sounds, equal good air entry, fine crackles bilateral lower zone CVS: S1-S2 regular, pansystolic murmur present at apex rating to mid axillary line, no tachycardia, no gallops, no rubs Abdomen: Soft, nontender, no organomegaly, bowel sounds present, morbidly obese Neuro: No focal deficits, no facial deformity, AO x3, power 5/5 in all limbs Extremities: Bilateral extremities warm to touch, pulses palpable. Cyanosis res olving in all toes. Resolved completely in right toes, still has some cyanosis in left toes. Urinary Catheter Management^: Razo: Cath Placed During This Visit: yes Reason for Continuing Indwelling Catheter: Accurate Measurement of Urinary Output in Critically Ill Patients Urinary Catheter Date of Insertion: 03/16/21 Urinary Catheter Time of Insertion: 18:00 Data : 03/20/21 02:28 03/20/21 02:28 Micro: Microbiology 03/16/21 23:30 Urine Culture - Final Urine,Clean Catch A&P Assessment and plan (1) Cardiogenic shock: Status: Acute (2) ST elevation myocardial infarction (STEMI): Status: Acute Qualifiers: Involved coronary artery: LAD coronary artery Qualified Code(s): I21.02 - ST elevation (STEMI) myocardial infarction involving left anterior descending coronary artery (3) SANAM (acute kidney injury): Status: Acute (4) HFrEF (heart failure with reduced ejection fraction): Status: Acute (5) Hyperkalemia: Status: Acute (6) High anion gap metabolic acidosis: Status: Acute (7) Shock liver: Status: Acute (8) Transaminitis: Status: Acute (9) Blue toes: Most likely secondary to cardiogenic shock versus pressor requirement. Lower limb arterial Dopplers appreciated without any acute occlusion. Continue to palpate and monitor for pulses. Wean pressors as above. Status: Acute Additional A&P Information 56-year-old gentleman presented to the hospital with delayed presentation of ST elevation MO, post emergent cardiac cath with failure of spiritism of blood flow after multiple balloon angioplasty to LAD, post PCI to OM1 found to have worsening renal functions, hyperkalemia with low blood pressures and cool peripherally. Cardiogenic shock: Secondary to delayed presentation of ST elevation MO and severe LV dysfunction. Resolving. Keep mean arterial pressure over 65, saturation over 92%. Levophed stopped on 03/19. Wean off dobutamine today. For now hold off on metoprolol. Hold off on any further IV hydration Acute kidney injury: Hyperkalemia: Secondary to ATN from cardiogenic shock and cardiorenal syndrome. Resolved. Creatinine back to normal. Appreciate nephrology recommendations. Monitor intake output strictly. Keep potassium around 4, mag around 2.5-3 to avoid arrhythmia. Repeat BMP tomorrow. High anion gap metabolic acidosis: Resolving. Secondary to acute kidney injury. Continue to monitor. Lactic acidosis: Resolved. Secondary to cardiogenic shock. Transaminitis: Most likely secondary to shock liver. Resolving. ST elevation MO: Post PCI to OM1. Continue with aspirin, Plavix, statin. Withhold beta-dolly for now given cardiogenic shock. Given thrombocytopenia today we will hold off on any further heparin. Case discussed with cardiology. Trying to transfer to a higher center for possible LVAD. Appreciate repeat echocardiogram with EF 15% without LV thrombus. Fever: COVID-19 PCR negative. Less likely infectious. Glucose: Secondary to cardiogenic shock. Improving with resolution of cardiog enic shock. PT/OT. CODE STATUS: Discussed in detail with family at bedside. Full code. Mechanical soft renal nondialysis diet. Add Ensure with each meal SCDs for DVT prophylaxis, withholding heparin. Protonix for PUD prophylaxis. Guarded prognosis. Transfer out of ICU to [facility]. Care discussed with primary team. Attestations Medical Necessity Statement*: As per primary team. Resolution of cardiogenic shock, SANAM, resolving transaminitis secondary to shock liver in setting of recent ST elevation MO and severe LV dysfunction. Critical Care Time: The high probability of a clinically significant, sudden or life threatening deterioration of the patient's cardiac, renal system(s) required my full and direct attention, intervention and personal management. The critical care time is as shown. This time is in addition to time spent performing any reported procedures but includes the following: [x] Data and vital sign review and interpretation [x] Patient assessment, examination and intervention [x] Documentation [x] Medication orders and management Critical Care Time (min): 90 Coding Level of Care Code Acute Motion Pictures Cartoonist for Chg Fwd Diagnoses Cardiogenic shock R57.0 ST elevation myocardial infarction (STEMI) I21.02 Involved coronary artery: LAD coronary artery SANAM (acute kidney injury) N17.9 HFrEF (heart failure with reduced ejection fraction) I50.20 Hyperkalemia E87.5 High anion gap metabolic acidosis E87.2 Shock liver K72.00 Transaminitis R74.01 Blue toes R23.0
--- NOTE | 2021-03-20 14:59 | PC.NURSE ---
Report faxed to [facility]. Report called to [facility], given to TESSY Bernal.
--- NOTE | 2021-03-20 15:54 | PC.NURSE ---
Pt transferred to Room 104 on [facility] via W/C. All belongings with pt. at bedside. Oriented to Call light and room.
[2021-03-20] MEDS: sennosides 8.6 mg Tablet 17.2 MG PO (19:49)
[2021-03-20] MEDS: atorvastatin 40 mg Tablet 80 MG PO (19:50)
[2021-03-21] VITALS (30 sets, daily range): BP systolic 87–112; BP diastolic 51–71; PULSE 82–100; RESP 0–22; TEMP 36.6–37.1; O2SAT 92–97; BMI 29.5
[2021-03-21 04:56] LABS: Basophils % 0.2 %; Eosinophils # 0.2 10^3/uL (0.0-0.8); Eosinophils % 1.7 %; Hematocrit 42.6 % (42.0-52.0); Lymphocytes # 0.8 10^3/uL (0.8-4.8); Lymphocytes % 9.3 %; Mean Corpuscular HGB Conc 35.2 g/dL (30.0-36.0); Mean Corpuscular Hemoglobin 30.8 pg (28.0-34.0); Mean Corpuscular Volume 87.5 fl (80-94); Mean Platelet Volume 12.4 fL (7.4-10.4); Monocytes # 0.6 10^3/uL (0.2-0.9); Monocytes % 6.5 %; Neutrophils # 7.37 10^3/uL (1.8-7.7); Neutrophils % 81.6 %; Nucleated Red Blood Cells % 0.2 %; Platelet Count 110 10^3/cmm (130-400); Red Blood Count 4.87 10^6/uL (4.1-5.3); Red Cell Distribution Width 13.9 % (12.1-15.1)
[2021-03-21 05:06] LABS: Albumin Level 2.7 g/dL (3.5-5.2); Alkaline Phosphatase 175 IU/L (40-130); Anion Gap 13.9 (5-19); Aspartate Amino Transferase 420 U/L (0-40); Blood Urea Nitrogen 25 mg/dL (6-20); Calcium 7.6 mg/dL (8.5-10.5); Carbon Dioxide 24 mmol/L (22-29); Chloride 97 mmol/L (98-107); Globulin 2.4 g/dL (1.3-4.6); Glomerular Filtration Rate 99.6 mL/min (90-130); Glucose 90 mg/dL (65-115); Osmolality Calculated 276 mOsm/kg (285-295); Potassium 3.9 mmol/L (3.5-5.1); Sodium 131 mmol/L (136-145); Total Bilirubin 3.5 mg/dL (0.15-1.2); Total Protein 5.1 g/dL (6.6-8.7)
[2021-03-21 05:33] LABS: Alanine Aminotransferase 1034 U/L (0-41)
--- NOTE | 2021-03-21 09:14 | PM.PN ---
Subjective Subjective: Interval history: Patient is feeling better. Denies any chest pain or shortness of breath. He has been ambulating on telemetry. Telemetry showed occasional short runs of nonsustained ventricular tachycardia. No other significant arrhythmias are noted. Vital signs remained stable. Patient is off on all vasopressors. Medications: Reviewed: Yes Medication Review Details: Current Medications Acetaminophen (Acetaminophen 325 Mg Tablet) 650 mg PO Q6H PRN PRN Reason: MILD PAIN Last Admin: 03/20/21 12:39 Dose: 650 mg Documented by: Al Hydrox/Mg Hydrox/Simethicone (Peqx-Upa-Yzdioqwsj-Jose 30 Ml Udc) 30 ml PO Q15M PRN PRN Reason: INDIGESTION Last Admin: 03/16/21 10:52 Dose: 30 ml Documented by: Alprazolam (Alprazolam 0.5 Mg Tablet) 0.25 mg PO TID PRN PRN Reason: ANXIETY Last Admin: 03/16/21 16:44 Dose: 0.25 mg Documented by: Aspirin (Aspirin 81 Mg Ec Tablet) 81 mg PO DAILY [facility] Last Admin: 03/20/21 08:29 Dose: 81 mg Documented by: Atorvastatin Calcium (Atorvastatin 40 Mg Tablet) 80 mg PO BEDTIME [facility] Last Admin: 03/20/21 19:50 Dose: 80 mg Documented by: Atropine Sulfate (Atropine 1 Mg/Ml Sdv 1 Ml) 0.5 mg IVP PRN PRN PRN Reason: Symptomatic bradycardia Benzonatate (Benzonatate 100 Mg Capsule) 100 mg PO TID [facility] Last Admin: 03/20/21 19:50 Dose: 100 mg Documented by: Clopidogrel Bisulfate (Clopidogrel 75 Mg Tablet) 75 mg PO DAILY [facility] Last Admin: 03/20/21 08:29 Dose: 75 mg Documented by: Fluticasone Propionate (Fluticasone Nasal [place] 16gm Btl) 1 spray NASAL DAILY [facility] Last Admin: 03/20/21 10:39 Dose: 1 spray Documented by: Guaifenesin/Codeine Phosphate (Guaifenesin-Codeine Udc 10 Ml) 5 ml PO Q6H PRN PRN Reason: COUGH Heparin Sodium (Porcine) (Heparin 5,000 Unit/Ml Inj 1 Ml) 5,000 unit SUBCUT Q12H [facility] Last Admin: 03/20/21 05:52 Dose: 5,000 unit Documented by: Dobutamine HCl/Dextrose (Dobutamine Drip) 500 mg in 250 mls @ 0 mls/hr IV .Q0M [facility]; Protocol Last Titration: 03/20/21 10:39 Dose: 0 mcg/kg/min, 0 mls/hr Documented by: Magnesium Hydroxide (Magnesium Hydroxide 30 Ml Udc) 30 ml PO DAILY PRN PRN Reason: CONSTIPATION Metoclopramide HCl (Metoclopramide 5 Mg/Ml Sdv 2 Ml) 5 mg IVP Q6H PRN PRN Reason: NAUSEA AND VOMITING Last Admin: 03/18/21 17:04 Dose: 5 mg Documented by: Naloxone HCl (Naloxone 0.4 Mg/Ml Sdv) 0.1 mg IVP Q2M PRN PRN Reason: RESPIRATORY RATE < 8/MIN Nitroglycerin (Nitroglycerin 0.4 Mg Sublingual Tablet) 0.4 mg SUBLINGUAL Q5M PRN PRN Reason: CHEST PAIN Phenylephrine HCl (Phenylephrine 0.5% Nasal 15 Ml Btl) 1 spray NASAL Q4H PRN PRN Reason: Nose bleed Last Admin: 03/20/21 13:23 Dose: 1 dose Documented by: Senna (Sennosides 8.6 Mg Tablet) 17.2 mg PO BEDTIME [facility] Last Admin: 03/20/21 19:49 Dose: 17.2 mg Documented by: Vitals/I&O/Wt Last Vital Signs Temp 97.9 F 03/21/21 07:11 Pulse 86 03/21/21 07:11 Resp 16 03/21/21 07:11 BP 94/61 03/21/21 07:11 Pulse Ox 92 03/21/21 07:11 03/20/21 03/21/21 03/21/21 22:59 06:59 14:59 Intake Total 480 / 1145.230 240 / 240 Output Total 250 / 775 250 / 1025 Balance 230 / 370.230 -250 / 120.230 240 / 240 Weight last 48 hrs Weight 218 lb 3.2 oz Weight 218 lb 3.2 oz Physical Exam Narrative: EXAM NARRATIVE: GENERAL: The patient is alert and oriented times three. Not in any acute distress. HEENT: No significant pallor, icterus or lymphadenopathy.Oral cavity: There are no mucous membrane lesions. NECK: Trachea appears to be central. No masses noted. No JVD or thyromegaly appreciated. RESPIRATORY: Chest is symmetrical. No intercostals muscle retraction or any accessory muscle activation. There is no chest wall tenderness. Breath sounds are heard bilaterally. No rales or rhonchi heard. No evidence of any consolidation. BREASTS: Deferred. HEART: The heart sounds are normal. No S3 or S4. Short systolic murmur in the left sternal border. No diastolic murmurs. No pericardial rub ABDOMEN: No vessel pulsations or distention. No tenderness. No organomegaly appreciated. Bowel sounds are normally heard. : Deferred. RECTAL: Deferred. LYMPHATIC: No lymphadenopathy noted in the neck or groin. EXTREMITIES: No edema or cyanosis. No clubbing. Peripheral pulses are palpable but weak. The peripheral cyanosis in the toes is improving MUSCULOSKELETAL: No acute joint deformities or swelling SKIN: There are no significant rashes or ecchymosis NEUROPSYCHIATRIC: The patient is alert and oriented x3. Appears to be in a good mood. No tremors or rigidity noted. Urinary Catheter Management^: Razo: Cath Placed During This Visit: yes Reason for Continuing Indwelling Catheter: Accurate Measurement of Urinary Output in Critically Ill Patients Urinary Catheter Date of Insertion: 03/16/21 Urinary Catheter Time of Insertion: 18:00 Data : 03/22/21 03:35 03/22/21 03:35 Other Labs: Laboratory Last Values WBC 9.0 10^3/uL (4.0-10.0) 03/21/21 04:30 Corrected WBC Cancelled 03/17/21 07:26 RBC 4.87 10^6/uL (4.1-5.3) 03/21/21 04:30 Hgb 15.0 g/dL (11.7-16.6) 03/21/21 04:30 Hct 42.6 % (42.0-52.0) 03/21/21 04:30 MCV 87.5 fl (80-94) 03/21/21 04:30 MCH 30.8 pg (28.0-34.0) 03/21/21 04:30 MCHC 35.2 g/dL (30.0-36.0) 03/21/21 04:30 RDW 13.9 % (12.1-15.1) 03/21/21 04:30 Plt Count 110 10^3/cmm (130-400) L 03/21/21 04:30 MPV 12.4 fL (7.4-10.4) H 03/21/21 04:30 Gran % Cancelled 03/17/21 07:26 Neut % (Auto) 81.6 % 03/21/21 04:30 Lymph % (Auto) 9.3 % 03/21/21 04:30 [place] % (Auto) 6.5 % 03/21/21 04:30 Eos % (Auto) 1.7 % 03/21/21 04:30 Baso % (Auto) 0.2 % 03/21/21 04:30 Neut # (Auto) 7.37 10^3/uL (1.8-7.7) 03/21/21 04:30 Lymph # (Auto) 0.8 10^3/uL (0.8-4.8) 03/21/21 04:30 [place] # (Auto) 0.6 10^3/uL (0.2-0.9) 03/21/21 04:30 Eos # (Auto) 0.2 10^3/uL (0.0-0.8) 03/21/21 04:30 Baso # (Auto) 0.0 10^3/uL (0.0-0.1) 03/21/21 04:30 Absolute Gran (auto) Cancelled 03/17/21 07:26 Nucleated RBC % (auto) 0.2 % 03/21/21 04:30 Nucleated RBCs # 0.0 /100WBC 03/21/21 04:30 PT 18.90 SECONDS (12.1-14.9) H 03/15/21 17:40 INR 1.55 (0.8-1.2) H 03/15/21 17:40 APTT 31.0 SECONDS (23.9-36.7) 03/15/21 20:35 Specimen Type Arterial 03/16/21 18:45 Sample Site Radial, right 03/16/21 18:45 ABG pH 7.34 (7.35-7.45) L 03/16/21 18:45 ABG pCO2 16.9 mmHg (35-45) L* 03/16/21 18:45 ABG pO2 103.0 mmHg (80.0-100.0) H 03/16/21 18:45 ABG HCO3 9.0 mmol/L (22-26) L 03/16/21 18:45 ABG Base Excess -14.0 mmol/L (-2.0-2.0) L 03/16/21 18:45 Van Test Pos 03/16/21 18:45 Hematocrit 45.2 % (42-52) 03/16/21 18:45 O2 Delivery Device Room air 03/16/21 18:45 FiO2 21.0 % 03/16/21 18:45 Ecological Risk Assessor ID Ed 03/16/21 18:45 Sodium 131 mmol/L (136-145) L 03/21/21 04:30 Potassium 3.9 mmol/L (3.5-5.1) 03/21/21 04:30 Chloride 97 mmol/L (98-107) L 03/21/21 04:30 Carbon Dioxide 24 mmol/L (22-29) 03/21/21 04:30 Anion Gap 13.9 (5-19) 03/21/21 04:30 BUN 25 mg/dL (6-20) H 03/21/21 04:30 Creatinine 0.8 mg/dL (0.7-1.2) 03/21/21 04:30 GFR Calculation 99.6 mL/min (90-130) 03/21/21 04:30 Glucose 90 mg/dL (65-115) 03/21/21 04:30 POC Glucose 102 mg/dL (70-110) 03/16/21 10:32 Estimat Average Glucose 120 03/17/21 07:26 Hemoglobin A1c 5.8 % (4.0-6.0) 03/17/21 07:26 Calculated Osmolality 276 mOsm/kg (285-295) L 03/21/21 04:30 Lactic Acid 7.9 mmol/L (0.5-2.2) H* 03/16/21 18:33 Lactic Acid (Sepsis) 6.0 mmol/L (0.5-2.2) H* 03/16/21 21:19 Lactate 3.2 mmol/L (0.5-2.2) H 03/18/21 07:30 Uric Acid 8.9 mg/dL (3.4-7.0) H 03/16/21 05:00 Calcium 7.6 mg/dL (8.5-10.5) L 03/21/21 04:30 Phosphorus 2.8 mg/dL (2.5-4.5) 03/18/21 13:41 Magnesium 2.4 mg/dL (1.7-2.3) H 03/18/21 13:41 Iron 59 ug/dL (59-158) 03/16/21 15:32 TIBC 292 mcg/dl 03/16/21 15:32 % Saturation 20.2 % (20-50) 03/16/21 15:32 Unsat Iron Binding 233 ug/dL (112-347) 03/16/21 15:32 Total Bilirubin 3.5 mg/dL (0.15-1.2) H 03/21/21 04:30 AST 420 U/L (0-40) H 03/21/21 04:30 ALT 1034 U/L (0-41) H 03/21/21 04:30 Alkaline Phosphatase 175 IU/L (40-130) H 03/21/21 04:30 Creatine Kinase 176 U/L (39-308) 03/15/21 13:41 CK-MB (CK-2) 5.9 ng/mL (0-10.4) 03/15/21 13:41 CK-MB (CK-2) Rel Index % (0.0-5.3) 03/15/21 13:41 Troponin T Baseline 3308 ng/L (0-15) H* 03/15/21 13:41 Troponin T 120 Minute 3230 ng/L (0-15) H 03/15/21 17:40 Delta Troponin T -78 ABS# (0-10) L 03/15/21 17:40 Troponin T Hi Sens 6Hr 4082 ng/L (0-15) H 03/15/21 18:47 Troponin T Hi Sens 6Hr Delta 774 ng/L (0-12) H* 03/15/21 18:47 Total Protein 5.1 g/dL (6.6-8.7) L 03/21/21 04:30 Albumin 2.7 g/dL (3.5-5.2) L 03/21/21 04:30 Globulin 2.4 g/dL (1.3-4.6) 03/21/21 04:30 TSH 2.65 uIU/mL (0.27-4.20) 03/16/21 05:00 Urine Color Yellow (Yellow) 03/16/21 23:30 Urine Appearance Hazy (CLEAR) A 03/16/21 23:30 Urine pH 5 (5-7) 03/16/21 23:30 Ur Specific [place] 1.020 (1.005-1.030) 03/16/21 23:30 Urine Protein 3+ (Negative) H 03/16/21 23:30 Urine Glucose (UA) Trace (Normal) H 03/16/21 23:30 Urine Ketones 1+ (Negative) H 03/16/21 23:30 Urine Blood 3+ (Negative) H 03/16/21 23:30 Urine Nitrate Negative (Negative) 03/16/21 23:30 Urine Bilirubin 1+ (Negative) H 03/16/21 23:30 Urine Urobilinogen 4 mg/dL (Negative) H 03/16/21 23:30 Ur Leukocyte Esterase Trace (Negative) H 03/16/21 23:30 Urine RBC 0-4 /hpf (0-2) H 03/16/21 23:30 Urine WBC 0-4 /hpf (0-5) H 03/16/21 23:30 Ur Eosinophil Smear 0 (0-0) 03/16/21 23:30 Ur Squamous Epith Cells 0-4 /hpf (0-5) H 03/16/21 23:30 Amorphous Sediment 3+ /hpf 03/16/21 23:30 Urine Bacteria 2+ /hpf (NONE) H 03/16/21 23:30 Urine Mucus 2+ /hpf 03/16/21 23:30 Urine Sperm 1+ /hpf 03/16/21 23:30 Urine Eosinophils No eosinophils seen 03/16/21 23:30 Ur Random Creatinine 132 mg/dL (20-320) 03/16/21 23:30 Ur Random Albumin 59 % 03/16/21 23:30 Ur Random Microalbumin 92 ug/dL (0-20) H 03/16/21 23:30 U Random Total Protein 225 mg/dL (5-25) H 03/16/21 23:30 Ur Random Sodium 18 mmol/L 03/16/21 23:30 Ur Random Potassium 75 mmol/L 03/16/21 23:30 Ur Random Chloride 11 mmol/L 03/16/21 23:30 Urine Creatinine 141 mg/dL (39-259) 03/16/21 23:30 Microalb/Creat Ratio 652 mg/dL (0-20) H 03/16/21 23:30 Protein/Creatinin Ratio 1705 mg/g creat (22-128) H 03/16/21 23:30 Protein/Creat Ratio 24h 1.705 (0.022-0.128) H 03/16/21 23:30 U Random d-3-Twuuanqx % 2 % 03/16/21 23:30 U Random n-0-Qsakvejw % 7 % 03/16/21 23:30 U Random Beta Globulin 20 % 03/16/21 23:30 U Random Gamma Glob 12 % 03/16/21 23:30 U Abnormal Prot Band 1 Not Reportable 03/16/21 23:30 U Abnormal Prot Band 2 Not Reportable 03/16/21 23:30 U Abnormal Prot Band 3 Not Reportable 03/16/21 23:30 Urine PEP Interpret See note 03/16/21 23:30 Coronavirus 229E (PCR) Not detected (NOT DETECT) 03/19/21 12:20 Hepatitis A IgM Ab Non-reactive (Nonreactive) 03/16/21 18:33 Hep Bs Antigen Non-reactive (Nonreactive) 03/16/21 18:33 Hep Bs Antibody 6.5 (11.5-1000) L 03/16/21 18:33 Hep B Core Total Ab Non-reactive (Nonreactive) 03/16/21 18:33 Hepatitis C Antibody Non-reactive (Nonreactive) 03/16/21 18:33 SARS-CoV-2 (PCR) Not detected (NOT DETECT) 03/19/21 12:20 SARS-CoV-2 Ag (Rapid) Negative (Negative) 03/19/21 10:00 A&P Assessment and plan (1) Cardiogenic shock: Patient has remarkably improved. His kidney function has returned to normal. Liver enzymes are coming down. Patient is off the Dobutrex. Vital signs are stable. We may start the patient on Entresto, if the blood pressure is stable. Her medications may be continued. I ordered for a LifeVest. Status: Acute (2) HFrEF (heart failure with reduced ejection fraction): Elevation fraction was around 15%. We will continue to optimize his medications. May start him on a low-dose of losartan, if the blood pressure tolerate Status: Acute (3) ST elevation myocardial infarction (STEMI): Status post attempted PCI of the LAD. No significant improvement of the LV ejection fraction In view of the severe LV dysfunction, patient carries a high risk for malignant ventricular arrhythmia. A LifeVest would be appropriate while we are waiting for the LV function to improve with medications. Status: Acute Qualifiers: Involved coronary artery: LAD coronary artery Qualified Code(s): I21.02 - ST elevation (STEMI) myocardial infarction involving left anterior descending coronary artery (4) Shock liver: The liver function continues to improve. May continue on the current treatment measures. Status: Acute Additional A&P Information Based on the clinical progress, further recommendations will be made. I may go and schedule for a LifeVest. Also may start him on Entresto 1 tablet p.o. twice daily. No vitals will be closely monitored. Attestations Medical Necessity Statement*: Patient requires continued hospital stay for close monitoring and further management Coding Level of Care Code Acute Certified Alcohol Counselor for Anhg Fwd History Detailed Exam Detailed Medical Decision Making Moderate Complexity Diagnoses Cardiogenic shock R57.0 HFrEF (heart failure with reduced ejection fraction) I50.20 ST elevation myocardial infarction (STEMI) I21.02 Involved coronary artery: LAD coronary artery Shock liver K72.00
[2021-03-21] MEDS: aspirin 81 mg EC Tablet PO (09:17)
[2021-03-21] MEDS: benzonatate 100 mg Capsule PO ×2 (09:17→19:45)
[2021-03-21] MEDS: fluticasone nasal spray 16gm Btl 1 SPRAY NASAL (09:17)
[2021-03-21] MEDS: clopidogrel 75 mg Tablet PO (09:17)
--- NOTE | 2021-03-21 14:14 | P.PN_ITS ---
Subjective Subjective: Interval history: No acute events overnight. Dobutamine weaned off yesterday. Transfer to [facility]. Has remained hemodynamically stable and afebrile. Medications: Reviewed: Yes Vitals/I&O/Wt Last Vital Signs Temp 98.3 F 03/21/21 11:02 Pulse 88 03/21/21 11:02 Resp 16 03/21/21 11:02 BP 104/68 03/21/21 11:02 Pulse Ox 96 03/21/21 11:02 03/20/21 03/21/21 03/21/21 22:59 06:59 14:59 Intake Total 480 / 1145.230 240 / 240 Output Total 250 / 775 250 / 1025 250 / 250 Balance 230 / 370.230 -250 / 120.230 -10 / -10 Weight last 48 hrs Weight 98.974 kg Weight 98.974 kg Physical Exam Narrative: EXAM NARRATIVE: EXAM NARRATIVE: General: No acute distress, AO x3 HEENT: PERRLA, pupils bilaterally equal and reactive Chest: Bilateral normal vesicular sounds, equal good air entry, fine crackles bilateral lower zone CVS: S1-S2 regular, pansystolic murmur present at apex rating to mid axillary line, no tachycardia, no gallops, no rubs Abdomen: Soft, nontender, no organomegaly, bowel sounds present, morbidly obese Neuro: No focal deficits, no facial deformity, AO x3, power 5/5 in all limbs Extremities: Bilateral extremities warm to touch, pulses palpable. Cyanosis resolving in all toes. Resolved completely in right toes, still has some cyanosis in left toes. Urinary Catheter Management^: Razo: Cath Placed During This Visit: yes Reason for Continuing Indwelling Catheter: Accurate Measurement of Urinary Output in Critically Ill Patients Urinary Catheter Date of Insertion: 03/16/21 Urinary Catheter Time of Insertion: 18:00 Data : 03/21/21 04:30 03/21/21 04:30 A&P Assessment and plan (1) Cardiogenic shock: Status: Acute (2) ST elevation myocardial infarction (STEMI): Status: Acute Qualifiers: Involved coronary artery: LAD coronary artery Qualified Code(s): I21.02 - ST elevation (STEMI) myocardial infarction involving left anterior descending coronary artery (3) SANAM (acute kidney injury): Status: Acute (4) HFrEF (heart failure with reduced ejection fraction): Status: Acute (5) Hyperkalemia: Status: Acute (6) High anion gap metabolic acidosis: Status: Acute (7) Shock liver: Status: Acute (8) Transaminitis: Status: Acute (9) Blue toes: Most likely secondary to cardiogenic shock versus pressor requirement. Lower limb arterial Dopplers appreciated without any acute occlusion. Continue to palpate and monitor for pulses. Wean pressors as above. Status: Acute Additional A&P Information 56-year-old gentleman presented to the hospital with delayed presentation of ST elevation IN, post emergent cardiac cath with failure of islam of blood flow after multiple balloon angioplasty to LAD, post PCI to OM1 found to have worsening renal functions, hyperkalemia with low blood pressures and cool peripherally. Cardiogenic shock: Secondary to delayed presentation of ST elevation IN and severe LV dysfunction. Resolving. Keep mean arterial pressure over 65, saturation over 92%. Pressors weaned off. For now hold off on metoprolol. Hold off on any further IV hydration Acute kidney injury: Hyperkalemia: Secondary to ATN from cardiogenic shock and cardiorenal syndrome. Resolved. Creatinine back to normal. Appreciate nephrology recommendations. Monitor intake output strictly. Keep potassium around 4, mag around 2.5-3 to avoid arrhythmia. Repeat BMP tomorrow. High anion gap metabolic acidosis: Resolving. Secondary to acute kidney injury. Continue to monitor. Lactic acidosis: Resolved. Secondary to cardiogenic shock. Transaminitis: Most likely secondary to shock liver. Resolving. ST elevation IN: Post PCI to OM1. Continue with aspirin, Plavix, statin. Withhold beta-dolly for now given cardiogenic shock. Given thrombocytopenia today we will hold off on any further heparin. Case discussed with cardiology. Trying to transfer to a higher center for possible LVAD. Appreciate repeat echocardiogram with EF 15% without LV thrombus. Fever: COVID-19 PCR negative. Less likely infectious. Glucose: Secondary to cardiogenic shock. Improving with resolution of cardiogenic shock. PT/OT. CODE STATUS: Discussed in detail with family at bedside. Full code. Mechanical soft renal nondialysis diet. Add Ensure with each meal SCDs for DVT prophylaxis, withholding heparin. Protonix for PUD prophylaxis. Guarded prognosis. Plan for day: Continue monitoring vitals. Repeat CMP tomorrow morning to monitor transaminitis. Monitor strict input output charting. [facility]cessity Statement*: As per primary team. Time Spent in Patient Care: Greater than 35 minutes (>than 50% of time spent in counselling and/or direct pt care on unit) . Coding Level of Care Code Acute Security Patrol Driver for Дмитрий Fwtesha Diagnoses Cardiogenic shock R57.0 ST elevation myocardial infarction (STEMI) I21.02 Involved coronary artery: LAD coronary artery SANAM (acute kidney injury) N17.9 HFrEF (heart failure with reduced ejection fraction) I50.20 Hyperkalemia E87.5 High anion gap metabolic acidosis E87.2 Shock liver K72.00 Transaminitis R74.01 Blue toes R23.0
[2021-03-21] MEDS: losartan 50 mg Tablet 25 MG PO (19:43)
[2021-03-21] MEDS: sennosides 8.6 mg Tablet 17.2 MG PO (19:44)
[2021-03-21] MEDS: atorvastatin 40 mg Tablet 80 MG PO (19:45)
--- NOTE | 2021-03-21 22:49 | PC.NURSE ---
Patient has had several runs of VFib. Patient was light headed. Contacted Dr. Babcock who suggested calling basin cleaner Dr Colby. Dr. Colby was notified.
--- NOTE | 2021-03-21 23:19 | ECG_ITS ---
[facility] Test Date: 2021-03-21 Pat Name: Jose Antonio Garrett Department: Room: 104 Gender: Male Condenser Winder: : [id number] Requested By: Acosta Wang Order Number: [id number] Carmen MD: Ajit Colby M.D. Measurements Intervals [place] Rate: 95 P: [place]: QRS: 114 QRSD: 148 T: -71 QT: 350 QTc: 441 Interpretive Statements Multifocal atrial rhythm INDETERMINATE AXIS RIGHT BUNDLE BRANCH BLOCK [120+ ms QRS DURATION, UPRIGHT V1, 40+ ms S IN I/aVL/V4/V5/V6] LEFT POSTERIOR FASCICULAR BLOCK [QRS AXIS > 109, INFERIOR Q] ANTERIOR MYOCARDIAL INFARCTION , POSSIBLY ACUTE [40+ ms Q WAVE AND/OR ST/T ABNORMALITY IN V3/V4] Possible old inferior wall LA ACUTE LA Compared to ECG 03/18/2021 16:05:21 Left posterior fascicular block now present Sinus rhythm no longer present Myocardial infarct finding still present Electronically Signed On 03-22-2021 20:51:12 PRODUCTION COOK by Ajit Colby M.D. [id number]
[2021-03-21 23:33] LABS: Basophils % 0.3 %; Eosinophils # 0.1 10^3/uL (0.0-0.8); Eosinophils % 1.1 %; Hemoglobin 13.3 g/dL (11.7-16.6); Lymphocytes # 0.8 10^3/uL (0.8-4.8); Lymphocytes % 8.4 %; Mean Corpuscular HGB Conc 34.1 g/dL (30.0-36.0); Mean Corpuscular Hemoglobin 30.6 pg (28.0-34.0); Mean Corpuscular Volume 89.9 fl (80-94); Mean Platelet Volume 12.5 fL (7.4-10.4); Monocytes # 0.7 10^3/uL (0.2-0.9); Monocytes % 7.6 %; Neutrophils # 7.38 10^3/uL (1.8-7.7); Nucleated Red Blood Cells % 0 %; Platelet Count 87 10^3/cmm (130-400); Red Blood Count 4.34 10^6/uL (4.1-5.3); Red Cell Distribution Width 14.4 % (12.1-15.1)
[2021-03-21 23:55] LABS: Blood Urea Nitrogen 25 mg/dL (6-20); Calcium 7.3 mg/dL (8.5-10.5); Carbon Dioxide 22 mmol/L (22-29); Chloride 100 mmol/L (98-107); Glomerular Filtration Rate 116.2 mL/min (90-130); Glucose 133 mg/dL (65-115); Magnesium 1.6 mg/dL (1.7-2.3); Osmolality Calculated 278 mOsm/kg (285-295); Sodium 131 mmol/L (136-145)
[2021-03-21 23:56] LABS: Anion Gap 12.7 (5-19); Potassium 3.7 mmol/L (3.5-5.1)
[2021-03-22] VITALS (35 sets, daily range): BP systolic 69–133; BP diastolic 47–91; PULSE 82–116; RESP 14–23; TEMP 35.8–36.8; O2SAT 78–100
--- NOTE | 2021-03-22 00:35 | PC.NURSE ---
Patient arrv[facility] to ICU [facility]. NSR. V/S stable and WNL. One episode of vfib noted. Strip printed.
[2021-03-22] MEDS: potassium chloride ER 20 mEq Tablet 40 MEQ PO (00:40)
--- NOTE | 2021-03-22 00:59 | PC.NURSE ---
Dr. Babcock at bedside ordered 1 mg Magnesium IV. This was given out of crash cart around midnight.
--- NOTE | 2021-03-22 01:20 | XRR_ITS ---
PROCEDURE INFORMATION: Exam: XR Chest Exam date and time: 03/22/2021 1:20 AM Age: 56 years old Clinical indication: Device placement; Ett placement (vent status); Patient HX: Check S/P intubation post code blue. ; Additional info: Post intubation TECHNIQUE: Imaging protocol: XR of the chest. Views: 1 view. COMPARISON: CR (CHEST, ) 03/15/2021 11:31 PM FINDINGS: Tubes, catheters and devices: Interval endotracheal tube placement with tip over the mid trachea, 3 cm proximal to the ashish. Enteric tube tip is beyond the proximal portion of the stomach and is not seen because it is below the inferior margin of the film. Lungs: Unremarkable. No consolidation. Pleural spaces: Unremarkable. No pleural effusion. No pneumothorax. Heart/Mediastinum: Borderline to mild cardiomegaly. Bones/joints: Moderate thoracic spondylosis. XR/XR chest 1V portable [id number] IMPRESSION: 1. Interval endotracheal tube placement with tip over the mid trachea, 3 cm proximal to the ashish. 2. Enteric tube tip is beyond the proximal portion of the stomach and is not seen because it is below the inferior margin of the film. 3. Borderline to mild cardiomegaly.
--- NOTE | 2021-03-22 01:21 | W.ED.CHESTPA ---
HPI - Chest Pain General: Chief Complaint: Chest Pain Stated Complaint: SOB, TIGHTNESS, CP Time Seen by Provider: 03/15/21 13:28 History of Present Illness: Pain location: substernal and left chest Relieving factors: rest Exacerbating factors: exertion [facility] ED PFSH: Medical History No pertinent past medical history Surgical History No pertinent past surgical history Family History Sister CAD (coronary artery disease) Social History Smoking and tobacco status: current some day smoker Procedures Intubation Time out performed: Yes sedative: Etomidate Mg Given: 20 paralytic: Rocuronium Mg Given: 50 Laryngoscope: Douglas ET Tube Size: 8 ET Tube Uncuffed: No Tube Secured Depth (cm): 25 Tube Secured Location: lips Tube Placement Confirmation: visualized tube passing through cords, equal breath sounds bilaterally, no breath sounds over epigastrium and confirmation by capnometry Patient Tolerated Procedure: well Course Vital Signs: Vital signs: Vital Signs Temperature 98.2 F 03/21/21 23:20 Pulse Rate 94 03/21/21 23:20 Respiratory Rate 22 H 03/21/21 23:20 Blood Pressure 99/67 03/21/21 23:20 Pulse Oximetry 95 03/21/21 23:20 MDM - Chest Pain MDM Narrative: Medical decision making narrative: Called over to the ICU patient has been having runs of V. tach Dr. Babcock is at bedside he is no longer protecting his airway patient was in normal sinus rhythm had a nonrebreather I was called over to intubate patient did RSI intubation patient tolerated well with no difficulties. Lab Data: Labs: Lab Results 03/15/21 03/15/21 03/15/21 13:41 13:41 13:41 WBC 8.0 10^3/uL 10^3/ uL (4.0-10.0) RBC 5.22 10^6/uL 10^6 /uL (4.1-5.3) Hgb 15.7 g/dL g/dL (11.7-16.6) Hct 47.1 % % (42.0-52.0) MCV 90.2 fl fl (80-94) MCH 30.1 pg pg (28.0-34.0) MCHC 33.3 g/dL g/dL (30.0-36.0) RDW 13.1 % % (12.1-15.1) Plt Count 201 10^3/cmm 10^3 /cmm (130-400) MPV 11.1 fL H fL (7.4-10.4) Neut % (Auto) 73.7 % % Lymph % (Auto) 15.2 % % [place] % (Auto) 10.7 % % Eos % (Auto) 0.0 % % Baso % (Auto) 0.2 % % Neut # (Auto) 5.90 10^3/uL 10^3 /uL (1.8-7.7) Lymph # (Auto) 1.2 10^3/uL 10^3/ uL (0.8-4.8) [place] # (Auto) 0.9 10^3/uL 10^3/ uL (0.2-0.9) Eos # (Auto) 0.0 10^3/uL 10^3/ uL (0.0-0.8) Baso # (Auto) 0.0 10^3/uL 10^3/ uL (0.0-0.1) Nucleated RBC % (a uto) 0 % % Nucleated RBCs # 0.0 /100WBC /100W BC Sodium 129 mmol/L L mmol /L (136-145) Potassium 4.2 mmol/L mmol/L (3.5-5.1) Chloride 95 mmol/L L mmol/ L (98-107) Carbon Dioxide 21 mmol/L L mmol/ L (22-29) Anion Gap 17.2 (5-19) BUN 24 mg/dL H mg/dL (6-20) Creatinine 1.3 mg/dL H mg/dL (0.7-1.2) GFR Calculation 56.9 mL/min L mL/ min (90-130) Glucose 111 mg/dL mg/dL (65-115) Calculated Osmolal ity 273 mOsm/kg L mOs m/kg (285-295) Calcium 8.4 mg/dL L mg/dL (8.5-10.5) Total Bilirubin 0.8 mg/dL mg/dL (0.15-1.2) AST 67 U/L H U/L (0-40) ALT 59 U/L H U/L (0-41) Alkaline Phosphata se 87 IU/L IU/L (40-130) Creatine Kinase 176 U/L U/L (39-308) CK-MB (CK-2) 5.9 ng/mL ng/mL (0-10.4) CK-MB (CK-2) Rel I ndex % % (0.0-5.3) Troponin T Baselin e 3308 ng/L H* ng/L (0-15) Total Protein 6.3 g/dL L g/dL (6.6-8.7) Albumin 3.5 g/dL g/dL (3.5-5.2) Globulin 2.8 g/dL g/dL (1.3-4.6) Discharge Plan Discharge Patient Disposition: Admitted As Inpatient Admit Provider: Elton Nickerson Clinical Impression: ST elevation myocardial infarction (STEMI) Qualifiers: Involved coronary artery: LAD coronary artery Qualified Code(s): I21.02 - ST elevation (STEMI) myocardial infarction involving left anterior descending coronary artery Condition: Stable Coding Level of Care Code ED Ground Crew Linesman for Дмитрий Devine
--- NOTE | 2021-03-22 02:08 | PM.EVENT ---
Event Note Event Note: starting at ~10: 30 pm patient had intermittent short runs of V fib which were becoming more frequent. he was light headed during the events but alert and awake. BP stable. Started on Amiodarone infusion 1mg/min after being given 150 bolus. Thereafter transferred to ICU at approx 11:30pm . Additionally given 1gm of iv magnesium. Code blue called at 12:44 am after patient went into persistent V Fib/Vtach. A total of 4 shocks were delivered, 6mg and 12 mg adenosine given, Second amiodarone bolus 150 given, thereafter also started on lidocaine infusion infusion after being given 80mg bolus. His mental status deteriorated during the above events which eventually led to intubation by the ER physician Dr. Motley. patient now intubated and mechanically ventilated. currently on amiodarone and lidocaine infusion. Dr. Colby from cardiology notified and present at bedside. Patient's updated of critical events and presented at bedside. Event Notes Attestations Time Spent in Patient Care: Greater than 35 minutes
[2021-03-22 02:13] LABS: Glucose Point of Care 108 mg/dL (70-110)
--- NOTE | 2021-03-22 02:18 | PM.ACPR ---
Procedure/Consent Time out: Time Out Performed: Yes Consent: Consent for Procedure: Emergency procedure Procedure Narrative: Right femoral CVC was placed under US guidance and all aseptic precautions. Single attempt. No complications. Procedure performed due to poor peripheral iv access and need to run multiple iv medications and drips. Acute Procedures Epistaxis Control: Time out performed: Yes
[2021-03-22] MEDS: phenylephrine inj 25 MG in sodium chloride 0.9% 250 ML 24.24 MG IV (02:20)
[2021-03-22] MEDS: midazolam 1 mg/mL INJ 2 mL 2 MG ×2 (02:33)
[2021-03-22] MEDS: lidocaine drip 2,000 MG/500 ML PREMIX 60 MG IV ×2 (02:34→08:59)
[2021-03-22] MEDS: sodium chloride 0.9% (100 ml) 100 ML 412 ML (02:34)
[2021-03-22] MEDS: etomidate 10 ML 1 MG (02:34)
[2021-03-22] MEDS: rocuronium 10 mg/mL INJ 5mL 50 MG (02:35)
[2021-03-22] MEDS: propofol 1,000 MG/100 ML INJ 6 MG (02:35)
[2021-03-22] MEDS: propofol 1,000 MG/100 ML INJ 2.97 MG IV (02:40)
[2021-03-22] MEDS: DOBUTamine drip 500 MG/250 ML PREMIX 7.31 MG IV (02:40)
--- NOTE | 2021-03-22 02:45 | PC.NURSE ---
Code Event: Change in status. Patient was alert and orientated talking with staff and went into vfib and sustained rhythm. Defibrillator hooked in place and first shock delivered at 0044. Rhythm went to NSR then went back into SVT 6mg of adenosine given no effect, followed by 12mg of adenosine given with no effect. Patient then was shocked again 0049. No pulse was present and patient wasn't breathing, compressions started, pulse obtained at 0049 NSR. 0051 150mg bolus of amiodorone given. 0055 Lidocaine bolus 80mg given/drip started per Dr. Babcock's orders, patient continues to run vfib off and on. 0057 NSR heart rate. 0100 2mg versed. 0104 shock delivered. 010 BG 108 fingerstick. Decision made to intubate patient to protect airway due to frequent episodes of irregular rhythms and losing consciousness. 20 mg of etomidate given and 50mg of hamzah, intubated by Dr. Motley ET tube side 8, 26 at the lip. Positive color change and bilateral breath sounds auscultated at 0116. Fentanyl, Versed, Propofol ordered for sedation. Lidocaine and amiodorone ordered for irregular rhythms. Family at bedside and updated by Dr. Babcock and Dr. Colby.
[2021-03-22 04:05] LABS: Basophils % 0.3 %; Eosinophils # 0.1 10^3/uL (0.0-0.8); Eosinophils % 0.4 %; Hematocrit 41.8 % (42.0-52.0); Hemoglobin 13.9 g/dL (11.7-16.6); Lymphocytes # 0.6 10^3/uL (0.8-4.8); Lymphocytes % 5.6 %; Mean Corpuscular HGB Conc 33.3 g/dL (30.0-36.0); Mean Corpuscular Hemoglobin 30.4 pg (28.0-34.0); Mean Corpuscular Volume 91.5 fl (80-94); Mean Platelet Volume 12.1 fL (7.4-10.4); Monocytes # 0.7 10^3/uL (0.2-0.9); Monocytes % 6.4 %; Neutrophils # 9.86 10^3/uL (1.8-7.7); Neutrophils % 86.9 %; Nucleated Red Blood Cells % 0.2 %; Platelet Count 124 10^3/cmm (130-400); Red Blood Count 4.57 10^6/uL (4.1-5.3); Red Cell Distribution Width 14.3 % (12.1-15.1); White Blood Count 11.4 10^3/uL (4.0-10.0)
[2021-03-22 04:29] LABS: Albumin Level 2.5 g/dL (3.5-5.2); Alkaline Phosphatase 175 IU/L (40-130); Aspartate Amino Transferase 279 U/L (0-40); Blood Urea Nitrogen 24 mg/dL (6-20); Calcium 7.3 mg/dL (8.5-10.5); Carbon Dioxide 23 mmol/L (22-29); Chloride 100 mmol/L (98-107); Creatinine Clr Calc Pharmacy 82.7595; Globulin 2.4 g/dL (1.3-4.6); Glomerular Filtration Rate 62.4 mL/min (90-130); Glucose 130 mg/dL (65-115); Osmolality Calculated 280 mOsm/kg (285-295); Sodium 132 mmol/L (136-145); Total Bilirubin 2.3 mg/dL (0.15-1.2); Total Protein 4.9 g/dL (6.6-8.7)
[2021-03-22 04:38] LABS: ABG PCO2 39.2 mmHg (35-45); ABG PH Result 7.38 (7.35-7.45); Alveolar-Arterial Oxygen Gradi 14.4 mmHg (5-10); Arterial Blood Gas Hematocrit 43.4 % (42-52); Blood Gas Allen Test Pos; Blood Gas Sample Site Radial, right; Blood Gas Sample Type Arterial; Blood Gas Tidal Volume 0.55; Carboxyhemoglobin 0.9 %THgb (0.4-20.1); HGB O2 Sat 95.2 % (95-100); Ionized Calcium Level - ABG 1.2 mmol/L (1.1-1.4); Methemoglobin 1.1 % (0.4-1.5); Oxygen Device VENT; Oxygen Saturation ABG 97.1; PO2 ABG 92.3 mmHg (80.0-100.0); Potassium Level - ABG 3.7 mmol/L (3.5-5.0); Total Hemoglobin 14.2 g/dL (14-18)
[2021-03-22 04:43] LABS: Alanine Aminotransferase 757 U/L (0-41)
[2021-03-22] MEDS: phenylephrine inj 25 MG in sodium chloride 0.9% 250 ML 72.72 MG IV (07:00)
[2021-03-22] MEDS: fluticasone nasal spray 16gm Btl 1 SPRAY NASAL (08:23)
--- NOTE | 2021-03-22 09:23 | PC.NURSE ---
0700 Report received, assessment completed. VSS. Pt wakes easily, follows all commands. Fentanyl at 100, lidocaine at 4, amio at 0.5, dobutamine at 5, and neosynephrine at 120. R femoral CVL in place. PIV x 2. Razo cath draining freely. Will monitor.
--- NOTE | 2021-03-22 10:03 | PC.CHAP ---
Pastoral Care Encounter/Spiritual Assessment Type of Contact [] Declined creative developer visit [] Patient/Family/Request visit [] Outpatient visit [] Follow-up visit [] Physician referral [] Code/Alert [x] Routine visit [] Staff referral [] Actively dying [] Patient sleeping [x] Family support [] [] Out of room [] Palliative care [] [] Receiving care in room [] Pre-surgical visit [] Trauma [] Long length of stay [x] ICU visit [] Other: Relational/Emotional Strength [] Patient feels connected with others/family/visitors/staff [] Distress [] Loneliness/isolation [] Abandonment Spirituality of Patient [] Person of Nora [] Attends Taoist of their Nora [] Believes in Prayer [] Reads Bible or Latter-Day materials [] There are Spiritual issues to be addressed Production Team Member Interventions [x] Prayer [] Active listening [] Non-anxious presence [] Spiritual/emotional support [] Crisis/trauma care [] Spiritual counseling [] Bereavement support [] Provided bereavement packet [] Provided Bible/devotional materials [] Provided toy/stuffed animal, coloring book to patient or family member [] Provided Communion [] Anointing/[place] [] Salvation [x] Completed spiritual assessment [] Other: Impact on Illness or Injury [] Angry [] Fearful [] Anxious [] Often cries [] Exhaustion [] Unable to work [] Unable to attend mormon [] Unable to walk/stand [] Unable to read [] Unable to drive [] Unable to eat/drink [] Unable to sleep [] Unable to be with family [] Patient intubated [] Other: Summary family present... prayed.. patient on vent, \received a phone call regarding praying and visiting patient... assured person we offered 24/ visits for patient Time spent with patient 10 min
--- NOTE | 2021-03-22 10:04 | ECG_ITS ---
[facility] Test Date: 2021-03-22 Pat Name: Jose Antonio Garrett Department: Room: ICU08 Gender: Male Lay Out Worker: : 1965 Requested By: Ajit Colby Order Number: [id number] Carmen MD: Ajit Colby M.D. Measurements Intervals [place] Rate: 95 P: 1 NC: 145 QRS: 97 QRSD: 148 T: -74 QT: 339 QTc: 427 Interpretive Statements SINUS RHYTHM RIGHT BUNDLE BRANCH BLOCK [120+ ms QRS DURATION, UPRIGHT V1, 40+ ms S IN I/aVL/V4/V5/V6] ANTERIOR MYOCARDIAL INFARCTION , PROBABLY RECENT [40+ ms Q WAVE AND/OR ST/T ABNORMALITY IN V3/V4] Possible old inferior wall CO ACUTE CO Compared to ECG 03/21/2021 23:32:40 Indeterminate axis no longer present Left posterior fascicular block no longer present Myocardial infarct finding still present Electronically Signed On 03-22-2021 20:56:35 LACE INSPECTOR by Ajit Colby M.D. [email or web address]
--- NOTE | 2021-03-22 10:15 | PM.PN ---
Subjective Subjective: Interval history: This patient went into ventricular fibrillation multiple times last night. He had to be cardioverted few times. He was started by me IV amiodarone later on because of the recurrent ventricular fibrillation, lidocaine also was started. Currently he is in sinus rhythm. Phenylephrine was started for hypotension. Currently the blood pressure seems to be improving. Denies any chest pain. He is currently intubated. Oxygen saturation is appropriate. No fever or chills. No cough. Medications: Reviewed: Yes Medication Review Details: Current Medications Acetaminophen (Acetaminophen 325 Mg Tablet) 650 mg PO Q6H PRN PRN Reason: MILD PAIN Last Admin: 03/20/21 12:39 Dose: 650 mg Documented by: Al Hydrox/Mg Hydrox/Simethicone (Fsbb-Eaz-Fqfckzhsy-Jose 30 Ml Udc) 30 ml PO Q15M PRN PRN Reason: INDIGESTION Last Admin: 03/16/21 10:52 Dose: 30 ml Documented by: Alprazolam (Alprazolam 0.5 Mg Tablet) 0.25 mg PO TID PRN PRN Reason: ANXIETY Last Admin: 03/16/21 16:44 Dose: 0.25 mg Documented by: Aspirin (Aspirin 81 Mg Ec Tablet) 81 mg PO DAILY [facility] Last Admin: 03/22/21 08:02 Dose: Not Given Documented by: Atorvastatin Calcium (Atorvastatin 40 Mg Tablet) 80 mg PO BEDTIME [facility] Last Admin: 03/21/21 19:45 Dose: 80 mg Documented by: Atropine Sulfate (Atropine 1 Mg/Ml Sdv 1 Ml) 0.5 mg IVP PRN PRN PRN Reason: Symptomatic bradycardia Benzonatate (Benzonatate 100 Mg Capsule) 100 mg PO TID [facility] Last Admin: 03/22/21 08:02 Dose: Not Given Documented by: Clopidogrel Bisulfate (Clopidogrel 75 Mg Tablet) 75 mg PO DAILY [facility] Last Admin: 03/22/21 08:02 Dose: Not Given Documented by: Fluticasone Propionate (Fluticasone Nasal [place] 16gm Btl) 1 spray NASAL DAILY [facility] Last Admin: 03/22/21 08:23 Dose: 1 spray Documented by: Guaifenesin/Codeine Phosphate (Guaifenesin-Codeine Udc 10 Ml) 5 ml PO Q6H PRN PRN Reason: COUGH Heparin Sodium (Porcine) (Heparin 5,000 Unit/Ml Inj 1 Ml) 5,000 unit SUBCUT Q12H JYAJAY Last Admin: 03/20/21 05:52 Dose: 5,000 unit Documented by: Dobutamine HCl/Dextrose (Dobutamine Drip) 500 mg in 250 mls @ 0 mls/hr IV .Q0M JAYJAY; Protocol Last Titration: 03/22/21 03:10 Dose: 5 mcg/kg/min, 14.63 mls/hr Documented by: Amiodarone HCl 900 mg/Dextrose/ IV Miscellaneous Supplies 518 mls @ 0 mls/hr IV .Q0M [facility]; Protocol Last Titration: 03/22/21 05:49 Dose: 0.5 mg/min, 17.27 mls/hr Documented by: Lidocaine HCl/Dextrose (Lidocaine Drip) 2,000 mg in 500 mls @ 15 mls/hr IV .Q24H [facility] Last Admin: 03/22/21 08:59 Dose: 4 mg/min, 60 mls/hr Documented by: Fentanyl 1,000 mcg/ Sodium (Chloride) 100 mls @ 0 mls/hr IV .Q0M JAYJAY; Protocol Last Titration: 03/22/21 09:01 Dose: 75 mcg/hr, 7.5 mls/hr Documented by: Norepinephrine Bitartrate 4 mg (/ Dextrose) 254 mls @ 0 mls/hr IV .Q0M PRN; Protocol PRN Reason: hypotension Midazolam HCl 100 mg/ Sodium (Chloride) 100 mls @ 0 mls/hr IV .Q0M JAYJAY; Protocol Last Titration: 03/22/21 05:49 Dose: 0 mg/hr, 0 mls/hr Documented by: Phenylephrine HCl 25 mg/ (Sodium Chloride) 252.5 mls @ 0 mls/hr IV .Q0M PRN; Protocol PRN Reason: hypotension Last Titration: 03/22/21 09:34 Dose: 100 mcg/min, 60.6 mls/hr Documented by: Propofol (Diprivan) 1,000 mg in 100 mls @ 0 mls/hr IV .Q0M PRN; Protocol PRN Reason: sedation Last Titration: 03/22/21 02:41 Dose: 0 mcg/kg/min, 0 mls/hr Documented by: Losartan Potassium (Losartan 50 Mg Tablet) 25 mg PO DAILY [facility] Last Admin: 03/22/21 08:03 Dose: Not Given Documented by: Magnesium Hydroxide (Magnesium Hydroxide 30 Ml Udc) 30 ml PO DAILY PRN PRN Reason: CONSTIPATION Metoclopramide HCl (Metoclopramide 5 Mg/Ml Sdv 2 Ml) 5 mg IVP Q6H PRN PRN Reason: NAUSEA AND VOMITING Last Admin: 03/18/21 17:04 Dose: 5 mg Documented by: Naloxone HCl (Naloxone 0.4 Mg/Ml Sdv) 0.1 mg IVP Q2M PRN PRN Reason: RESPIRATORY RATE < 8/MIN Nitroglycerin (Nitroglycerin 0.4 Mg Sublingual Tablet) 0.4 mg SUBLINGUAL Q5M PRN PRN Reason: CHEST PAIN Phenylephrine HCl (Phenylephrine 0.5% Nasal 15 Ml Btl) 1 spray NASAL Q4H PRN PRN Reason: Nose bleed Last Admin: 03/20/21 13:23 Dose: 1 dose Documented by: Senna (Sennosides 8.6 Mg Tablet) 17.2 mg PO BEDTIME JAYJAY Last Admin: 03/21/21 19:44 Dose: 17.2 mg Documented by: Vitals/I&O/Wt Last Vital Signs Temp 98.1 F 03/22/21 08:00 Pulse 87 03/22/21 08:00 Resp 14 03/22/21 06:26 BP 115/75 03/22/21 08:00 Pulse Ox 100 03/22/21 08:00 03/21/21 03/22/21 03/22/21 22:59 06:59 14:59 Intake Total 281.094 / 881.094 792.013 / 792.013 Output Total 300 / 550 Balance -300 / 50 281.094 / 331.094 792.013 / 792.013 Weight last 48 hrs Weight 216 lb Weight 218 lb 3.2 oz Physical Exam Narrative: EXAM NARRATIVE: GENERAL: The patient is currently intubated and sedated. HEENT: No significant pallor, icterus or lymphadenopathy.Oral cavity: There are no mucous membrane lesions. NECK: Trachea appears to be central. No masses noted. No JVD or thyromegaly appreciated. RESPIRATORY: Chest is symmetrical. No intercostals muscle retraction or any accessory muscle activation. There is no chest wall tenderness. Breath sounds are heard bilaterally. No rales or rhonchi heard. No evidence of any consolidation. BREASTS: Deferred. HEART: The heart sounds are normal. No S3 or S4. Short systolic murmur in the left sternal border. No diastolic murmurs. No pericardial rub ABDOMEN: No vessel pulsations or distention. No tenderness. No organomegaly appreciated. Bowel sounds are normally heard. : Deferred. RECTAL: Deferred. LYMPHATIC: No lymphadenopathy noted in the neck or groin. EXTREMITIES: No edema or cyanosis. No clubbing. MUSCULOSKELETAL: No acute joint deformities or swelling SKIN: There are no significant rashes or ecchymosis NEUROPSYCHIATRIC: The patient is alert and oriented x3. Appears to be in a good mood. No tremors or rigidity noted. Urinary Catheter Management^: Razo: Cath Placed During This Visit: yes Reason for Continuing Indwelling Catheter: Accurate Measurement of Urinary Output in Critically Ill Patients Urinary Catheter Date of Insertion: 03/22/21 Urinary Catheter Time of Insertion: 03:39 Data : 03/22/21 03:35 03/22/21 03:35 Micro: Microbiology 03/16/21 18:28 Blood Culture - Final Blood NO GROWTH AFTER 5 DAYS 03/16/21 18:33 Blood Culture - Final Blood NO GROWTH AFTER 5 DAYS A&P Assessment and plan (1) Ventricular fibrillation: Patient had multiple episodes of ventricular tachycardia/fibrillation on the monitor. He had to be cardioverted electrically few times. He also was started on IV amiodarone and later on lidocaine. Currently he is staying in the sinus rhythm. At this point I may gradually taper off the lidocaine. We will keep on the IV amiodarone. We will do an EKG today to evaluate the QRS. Patient requires an internal cardiac defibrillator. This was discussed with the patient's family which they understood well. EKG revealed sinus rhythm with right bundle branch block pattern. The QRS durations is 148 ms. Patient would be candidate for OIL AGENT-D. So we may go ahead with a dual-chamber ICD. This was discussed with Dr. Ashby. Currently we are in the process of getting it approved by the insurance. Status: Acute (2) Cardiogenic shock: Patient is alert functions continue to improve. Was started on phenylephrine last night. He also was started on Dobutrex. Dose of these medications are being titrated down. Status: Acute (3) HFrEF (heart failure with reduced ejection fraction): Left ventricular ejection fraction was around 15%. We will continue to optimize his medications. May start him on a low-dose of losartan, if the blood pressure tolerate Status: Acute (4) ST elevation myocardial infarction (STEMI): Status post attempted PCI of the LAD. No significant improvement of the LV ejection fraction In view of the severe LV dysfunction, patient carries a high risk for malignant ventricular arrhythmia. A LifeVest would be appropriate while we are waiting for the LV function to improve with medications. Status: Acute Qualifiers: Involved coronary artery: LAD coronary artery Qualified Code(s): I21.02 - ST elevation (STEMI) myocardial infarction involving left anterior descending coronary artery (5) Shock liver: The liver function continues to improve. May continue on the current treatment measures. Status: Acute Additional A&P Information Based on the clinical progress, further recommendations will be made. Attestations Medical Necessity Statement*: The patient's condition stable he is critical. We will continue to monitor in the ICU. Coding Level of Care Code Acute Control Room Tender for Дмитрий Devine History Detailed Exam Detailed Medical Decision Making High Complexity Diagnoses Ventricular fibrillation I49.01 Cardiogenic shock R57.0 HFrEF (heart failure with reduced ejection fraction) I50.20 ST elevation myocardial infarction (STEMI) I21.02 Involved coronary artery: LAD coronary artery Shock liver K72.00
[2021-03-22] MEDS: phenylephrine inj 25 MG in sodium chloride 0.9% 250 ML 60.6 MG IV (10:47)
--- NOTE | 2021-03-22 12:20 | PM.CONSULT ---
Providers/Reason For Consult Consulting Physician/Specialty*: Dr. Ashby/cardiothoracic surgery Reason for Consult*: AICD implantation Requesting Physician: Dr. Colby Attending Physician: Elton Nickerson M.D Primary Care Provider: Sher Aviles MD History of Present Illness History of Present Illness Jose Antonio Garrett is a 56 year old male currently intubated in ICU bed 8 following cardiac arrest around approximately 2:30 AM this morning with an episode of V. fib/V. tach. Underwent CPR along with 4 defibrillations as well as amiodarone. He was intubated by ER staff with altered mental status. The event initiated around 12-27 yesterday evening with intermittent episodes of V. tach. Currently is resting comfortably, though still orally intubated in the ICU. is at bedside. Originally presented back on March 15 with complaints of chest pain. This had begun the day prior to presentation. No prior history for known cardiac disease. EKG revealed ST elevations in leads V3, 4, and 5 consistent with STEMI. Acute coronary angiography revealed occluded mid LAD and chronic occlusion of the RCA. Attempted interventions on LAD, were unfortunately, unsuccessful. Balloon angioplasty of OMB 1 was performed due to a 60/90% stenosis. LV gram revealed akinetic/dyskinetic apical regions with a ejection fraction calculated at 15%. Acute renal insufficiency and elevated LFTs which have subsequently improved. Dobutamine was weaned off by March 21 or his arrhythmia genic event last night. Nurses report currently he does follow commands appropriately appears to be comfortable, remaining orally intubated at this time. History for cardiac disease though no personal history. reports he does smoke. Review of Systems General: Reports: ROS unobtainable due to endotracheal tube Narrative: reports no symptoms suggestive of cardiac disease. No prior history for chest discomfort or dyspnea with exertion. She states he has been quite healthy. Meds/Allergies Home Medications and Allergies Home Medications Medication Instructions Recorded Confirmed Last Taken Type aspirin 325 mg PO DAILY 03/16/21 03/16/21 Unknown History Allergies Allergy/AdvReac Type Severity Reaction Status Date / Time No Known Allergies Allergy Unverified 03/16/21 11:43 Current Medications Current Medications Generic Name Dose Route Start Last Admin Trade Name Freq PRN Reason Stop Dose Admin Acetaminophen 650 mg 03/15/21 15:27 03/20/21 12:39 Acetaminophen 325 Mg Tablet PO 650 mg Q6H PRN Administration MILD PAIN Al Hydrox/Mg Hydrox/Simethicone 30 ml 03/15/21 15:27 03/16/21 10:52 Siqb-[id number]-[id number]-Jose 30 Ml Udc PO 30 ml Q15M PRN Administration INDIGESTION Alprazolam 0.25 mg 03/15/21 15:27 03/16/21 16:44 Alprazolam 0.5 Mg Tablet PO 0.25 mg TID PRN Administration ANXIETY Aspirin 81 mg 03/16/21 09:00 03/22/21 08:02 Aspirin 81 Mg Ec Tablet PO Not Given DAILY JAYJAY Atorvastatin Calcium 80 mg 03/15/21 21:00 03/21/21 19:45 Atorvastatin 40 Mg Tablet PO 80 mg BEDTIME JAYJAY Administration Benzonatate 100 mg 03/19/21 15:00 03/22/21 08:02 Benzonatate 100 Mg Capsule PO Not Given TID JAYJAY Fluticasone Propionate 1 spray 03/20/21 10:18 03/22/21 08:23 Fluticasone Nasal [place] 16gm Btl NASAL 1 spray DAILY JAYJAY Administration Heparin Sodium (Porcine) 5,000 unit 03/16/21 18:00 03/20/21 05:52 Heparin 5,000 Unit/Ml Inj 1 Ml SUBCUT 5,000 unit Q12H JAYJAY Administration Dobutamine HCl/Dextrose 500 mg in 250 mls @ 0 mls/hr 03/16/21 18:00 03/22/21 03:10 Dobutamine Drip IV 5 mcg/kg/min .Q0M JAYJAY 14.63 mls/hr Titration Protocol Per Protocol Amiodarone HCl 900 mg/ 518 mls @ 0 mls/hr 03/21/21 23:30 03/22/21 05:49 Dextrose/ IV Miscellaneous IV 0.5 mg/min Supplies .Q0M JAYJAY 17.27 mls/hr Titration Protocol Per Protocol Lidocaine HCl/Dextrose 2,000 mg in 500 mls @ 15 mls/hr 03/22/21 01:00 03/22/21 10:18 Lidocaine Drip IV 3 mg/min .Q24H JAYJAY 45 mls/hr Infusion 1 MG/MIN Fentanyl 1,000 mcg/ Sodium 100 mls @ 0 mls/hr 03/22/21 01:30 03/22/21 10:17 Chloride IV 75 mcg/hr .Q0M JAYJAY 7.5 mls/hr Administration Protocol Per Protocol Midazolam HCl 100 mg/ Sodium 100 mls @ 0 mls/hr 03/22/21 01:30 03/22/21 05:49 Chloride IV 0 mg/hr .Q0M JAYJAY 0 mls/hr Titration Protocol Per Protocol Phenylephrine HCl 25 mg/ 252.5 mls @ 0 mls/hr 03/22/21 01:51 03/22/21 10:47 Sodium Chloride IV 100 mcg/min .Q0M PRN 60.6 mls/hr hypotension Administration Protocol Per Protocol Propofol 1,000 mg in 100 mls @ 0 mls/hr 03/22/21 02:30 03/22/21 02:41 Diprivan IV 0 mcg/kg/min .Q0M PRN 0 mls/hr sedation Titration Protocol Per Protocol Losartan Potassium 25 mg 03/21/21 21:00 03/22/21 08:03 Losartan 50 Mg Tablet PO Not Given DAILY JAYJAY Metoclopramide HCl 5 mg 03/18/21 09:09 03/18/21 17:04 Metoclopramide 5 Mg/Ml Sdv 2 Ml IVP 5 mg Q6H PRN Administration NAUSEA AND VOMITING Phenylephrine HCl 1 spray 03/20/21 13:08 03/20/21 13:23 Phenylephrine 0.5% Nasal 15 Ml Btl NASAL 1 dose Q4H PRN Administration Nose bleed Senna 17.2 mg 03/16/21 21:00 03/21/21 19:44 Sennosides 8.6 Mg Tablet PO 17.2 mg BEDTIME JAYJAY Administration PFSH Acute PFSH: Medical History No pertinent past medical history Surgical History No pertinent past surgical history Family History Sister CAD (coronary artery disease) Social History Smoking and tobacco status: current some day smoker Vitals/I&O/Wt Last Vital Signs Temp 98.1 F 03/22/21 08:00 Pulse 87 03/22/21 08:00 Resp 14 03/22/21 06:26 BP 115/75 01/03/22 08:00 Pulse Ox 100 03/22/21 08:00 03/21/21 03/22/21 03/22/21 22:59 06:59 14:59 Intake Total 281.094 / 881.094 949.698 / 949.698 Output Total 300 / 550 Balance -300 / 50 281.094 / 331.094 949.698 / 949.698 Weight last 48 hrs Weight 216 lb Weight 218 lb 3.2 oz Physical Exam HENMT: COMMON NORMALS: normocephalic and atraumatic HEAD & SCALP: normocephalic and atraumatic Neck/C-Spine: COMMON NORMALS: no lymphadenopathy and No carotid bruits Chest: COMMONS NORMALS: normal inspection of the chest OTHER: Defibrillator pads are in position Resp: COMMON NORMALS: clear to auscultation bilaterally EFFORT & INSPECTION: Yes symmetric chest movement AUSCULTATION: clear to auscultation bilaterally Cardio: COMMON NORMALS: regular rate, regular rhythm and S1 normal heart sound present RATE: regular rate RHYTHM: regular rhythm HEART SOUNDS: S1 normal heart sound present GI: COMMON NORMALS: Soft to palpation INSPECTION: No abdominal distension PALPATION: Yes Soft to palpation Neuro: OTHER: Deferred, as patient is currently intubated and sedated Urinary Catheter Management^: Razo: Cath Placed During This Visit: yes Reason for Continuing Indwelling Catheter: Accurate Measurement of Urinary Output in Critically Ill Patients Urinary Catheter Date of Insertion: 03/22/21 Urinary Catheter Time of Insertion: 03:39 Data Micro: Micro: Microbiology 03/16/21 18:28 Blood Culture - Fi nal Blood NO GROWTH AFTER 5 DAYS 03/16/21 18:33 Blood Culture - Fi nal Blood NO GROWTH AFTER 5 DAYS A&P Assessment and plan (1) Ventricular fibrillation: Status post ventricular fibrillation requiring cardioversion secondary to severe ischemic cardiomyopathy. I discussed the situation with Dr. Colby. I had a lengthy discussion with Mr. Garrett's at bedside. Rationale for AICD implantation was frankly discussed. He is at increased risk for any type of procedure related to his profound cardiomyopathy and tendency for arrhythmia. He will be at increased risk for infection due to his week long hospitalization as well as increased risk for bleeding related to Plavix administration. This was also frankly discussed. We will await insurance approval with plans to tentatively schedule for device implantation tomorrow. Status: Acute Consult Attestations Medical Necessity Statement: Severe cardiomyopathy with ventricular fibrillation Time Spent in Patient Care: Greater than 35 minutes Coding Level of Care Code Acute Lead Teacher for [facility] Diagnoses Ventricular fibrillation I49.01
--- NOTE | 2021-03-22 12:39 | PC.NURSE ---
R and L chest shah shaved and cleaned with chlorhexedine wipes per MD orders. Consents signed and on the chart.
[2021-03-22] MEDS: phenylephrine inj 25 MG in sodium chloride 0.9% 250 ML 36.36 MG IV (15:49)
--- NOTE | 2021-03-22 18:12 | PC.NURSE ---
Shift Note Frequent safety and comfort rounds continue. Orders and/or nursing care completed as indicated. Patient monitored for response to intervention and treatment(s). Education provided includes treatment plan, surgical plan for tomorrow, medications and need for ETT to remain. Family and pt verbalize understanding. Pt alert on sedation, follows all commands and is able to write on paper to communicate most needs. Bilateral wrist restraints in place. Gtts infusing per orders. Kamlesh titrated per orders. Dobutamine to remains at same rate per MD order. No other issues noted. VSS. Will continue to monitor.
--- NOTE | 2021-03-22 18:31 | PM.PN ---
Subjective Subjective: Interval history: He is intubated, mechanical ventilator, awake, alert, following commands, denying pain or discomfort. and daughter at bedside. Vitals/I&O/Wt Last Vital Signs Temp 98.2 F 03/22/21 16:00 Pulse 102 H 03/22/21 16:00 Resp 15 03/22/21 17:38 BP 119/75 03/22/21 16:00 Pulse Ox 98 03/22/21 17:38 03/22/21 03/22/21 03/22/21 06:59 14:59 22:59 Intake Total 281.094 / 594.309 7582.922 / 1369.922 95.496 / 1465.418 Output Total 400 / 400 Balance 281.094 / 391.082 9357.922 / 1369.922 -304.504 / 1065.418 Weight last 48 hrs Weight 97.976 kg Weight 98.974 kg Physical Exam Const: COMMON NORMALS: no acute distress and alert GENERAL APPEARANCE: cooperative, comfortable and patient mechanically ventilated ORIENTATION/CONSCIOUSNESS: Yes awake OTHER: Moves all extremities, squeezes both hands. HENMT: COMMON NORMALS: oropharynx normal Neck/C-Spine: COMMON NORMALS: no JVD Resp: COMMON NORMALS: normal respiratory effort and clear to auscultation bilaterally AUSCULTATION: clear to auscultation bilaterally Cardio: COMMON NORMALS: no JVD, regular rhythm, S1 normal heart sound present, S2 normal heart sound present and No murmurs present (Cardio) RHYTHM: regular rhythm HEART SOUNDS: S1 normal heart sound present and S2 normal heart sound present GI: COMMON NORMALS: Normal to inspection, nondistended, normoactive bowel sounds present, Soft to palpation and non-tender PALPATION: Yes Soft to palpation Extremity: COMMON NORMALS: no joint enlargement and no pedal edema OTHER: Swelling R bulmaro-medial forearm, distal bicep after IV infiltration Neuro: COMMON NORMALS: moves all extremities SENSORIUM/ORIENTATION: Yes alert Skin: COMMON NORMALS: no rashes or lesions noted GENERAL SKIN EXAM: no rashes or lesions noted Urinary Catheter Management^: Razo: Cath Placed During This Visit: yes Reason for Continuing Indwelling Catheter: Accurate Measurement of Urinary Output in Critically Ill Patients Urinary Catheter Date of Insertion: 03/22/21 Urinary Catheter Time of Insertion: 03:39 Data : 03/22/21 03:35 03/22/21 03:35 Micro: Microbiology 03/16/21 18:28 Blood Culture - Final Blood NO GROWTH AFTER 5 DAYS 03/16/21 18:33 Blood Culture - Final Blood NO GROWTH AFTER 5 DAYS A&P Assessment and plan (1) Ventricular fibrillation: Appreciate cardiology recommendations. Continue amiodarone. Wean down lidocaine drip. Arrangements underway for placement of ICD, discussed with patient and his . Cardiothoracic surgery consultation appreciated. Status: Acute (2) Cardiogenic shock: Improving. Intubated, mechanically ventilated. Weaning down on phenylephrine. Wean off dobutamine. Continue to wean off pressors. She proning if a candidate for ICD, tentative plan for placement tomorrow. With plan for extubation then if hemodynamically stable. On minimal vent settings. Status: Acute (3) ST elevation myocardial infarction (STEMI): Status post revascularization to OM1. Continue aspirin, statin. Status: Acute Qualifiers: Involved coronary artery: LAD coronary artery Qualified Code(s): I21.02 - ST elevation (STEMI) myocardial infarction involving left anterior descending coronary artery (4) SANAM (acute kidney injury): Fluctuating creatinine, overall improved compared to admission. This morning creatinine up to 1.2. BUN 24. Monitor renal function, I&O. Status: Acute (5) HFrEF (heart failure with reduced ejection fraction): Status: Acute (6) Hyperkalemia: Status: Acute (7) High anion gap metabolic acidosis: Status: Acute (8) Shock liver: Status: Acute (9) Transaminitis: Improving Status: Acute (10) Blue toes: Most likely secondary to cardiogenic shock versus pressor requirement. Lower limb arterial Dopplers appreciated without any acute occlusion. Continue to palpate and monitor for pulses. Wean pressors as above. Status: Acute (11) Thrombocytopenia: With improvement, recheck level. Status: Acute Additional A&P Information Infiltrated IV: Right forearm while increasing amiodarone. Infusion discontinued. Arm elevated, with noted swelling of forearm, distal bicep. Monitor. Cold pack as needed for comfort. Hypomagnesemia: Recheck magnesium. Fever: 99.9F on 03/18. COVID-19 PCR negative. Less likely infectious. Blood cultures so far negative. Attestations Medical Necessity Statement*: Continue admission for assessment management following episodes of ventricular fibrillation, tachycardia. ICD implantation. Of improving cardiogenic shock. Coding Level of Care Code Acute Rubber Block Layer for [facility] Diagnoses Ventricular fibrillation I49.[address] elevation myocardial infarction (STEMI) I21.02 Involved coronary artery: LAD coronary artery SANAM (acute kidney injury) N17.9 HFrEF (heart failure with reduced ejection fraction) I50.20 Hyperkalemia E87.5 High anion gap metabolic acidosis E87.2 Shock liver K72.00 Transaminitis R74.01 Blue toes R23.0 Thrombocytopenia D69.6
[2021-03-22] MEDS: DOBUTamine drip 500 MG/250 ML PREMIX 14.63 MG IV (19:57)
[2021-03-22 22:42] LABS: Alanine Aminotransferase 607 U/L (0-41); Albumin Level 2.6 g/dL (3.5-5.2); Alkaline Phosphatase 159 IU/L (40-130); Anion Gap 16.5 (5-19); Aspartate Amino Transferase 188 U/L (0-40); Blood Urea Nitrogen 30 mg/dL (6-20); Calcium 7.5 mg/dL (8.5-10.5); Carbon Dioxide 22 mmol/L (22-29); Chloride 97 mmol/L (98-107); Globulin 2.8 g/dL (1.3-4.6); Glomerular Filtration Rate 56.9 mL/min (90-130); Glucose 105 mg/dL (65-115); Magnesium 1.9 mg/dL (1.7-2.3); Osmolality Calculated 279 mOsm/kg (285-295); Potassium 4.5 mmol/L (3.5-5.1); Sodium 131 mmol/L (136-145); Total Bilirubin 2.4 mg/dL (0.15-1.2); Total Protein 5.4 g/dL (6.6-8.7)
[2021-03-23] VITALS (31 sets, daily range): BP systolic 90–118; BP diastolic 58–77; PULSE 70–94; RESP 15–23; TEMP 36.8; O2SAT 63–100
--- NOTE | 2021-03-23 | SCC_ITS ---
Procedure Done: Dual-lead automatic implantable cardiac defibrillator placement 275.6 seconds of fluoroscopic guidance, for a cumulative dose of 65.34 mGy, was provided to Dr. Ashby by the radiology department. C-arm images of the chest were saved for the patient's permanent record. [facility]
[2021-03-23] MEDS: phenylephrine inj 25 MG in sodium chloride 0.9% 250 ML 18.18 MG IV (00:23)
[2021-03-23 04:14] LABS: Basophils % 0.3 %; Eosinophils % 0.4 %; Hematocrit 38.7 % (42.0-52.0); Hemoglobin 12.7 g/dL (11.7-16.6); Lymphocytes # 0.7 10^3/uL (0.8-4.8); Lymphocytes % 6.7 %; Mean Corpuscular HGB Conc 32.8 g/dL (30.0-36.0); Mean Corpuscular Hemoglobin 30.1 pg (28.0-34.0); Mean Corpuscular Volume 91.7 fl (80-94); Mean Platelet Volume 11.8 fL (7.4-10.4); Monocytes # 0.8 10^3/uL (0.2-0.9); Monocytes % 7.8 %; Neutrophils # 8.94 10^3/uL (1.8-7.7); Neutrophils % 84.2 %; Nucleated Red Blood Cells % 0 %; Platelet Count 105 10^3/cmm (130-400); Red Blood Count 4.22 10^6/uL (4.1-5.3); Red Cell Distribution Width 14.7 % (12.1-15.1); White Blood Count 10.6 10^3/uL (4.0-10.0)
[2021-03-23 04:38] LABS: Alanine Aminotransferase 528 U/L (0-41); Albumin Level 2.5 g/dL (3.5-5.2); Alkaline Phosphatase 144 IU/L (40-130); Anion Gap 15.5 (5-19); Aspartate Amino Transferase 149 U/L (0-40); Blood Urea Nitrogen 31 mg/dL (6-20); Calcium 7.3 mg/dL (8.5-10.5); Carbon Dioxide 22 mmol/L (22-29); Chloride 99 mmol/L (98-107); Globulin 2.5 g/dL (1.3-4.6); Glucose 106 mg/dL (65-115); Magnesium 1.8 mg/dL (1.7-2.3); Osmolality Calculated 281 mOsm/kg (285-295); Potassium 4.5 mmol/L (3.5-5.1); Sodium 132 mmol/L (136-145); Total Bilirubin 2.1 mg/dL (0.15-1.2)
--- NOTE | 2021-03-23 05:39 | PC.NURSE ---
No acute changes overnight. patient is alert and orientated. No s/s of distress or irregular rhythms. ET tube still in place, patient compliant with restrictions and communicating through writing notes.
--- NOTE | 2021-03-23 07:26 | PM.PN ---
Subjective Subjective: Interval history: Awake and alert on rounds. Remains orally intubated though could be extubated at any time. No further arrhythmias reported overnight by nursing service. Currently in sinus rhythm. Vitals/I&O/Wt Last Vital Signs Temp 98.2 F 03/22/21 16:00 Pulse 79 03/23/21 06:00 Resp 17 03/23/21 06:32 BP 103/67 03/23/21 04:00 Pulse Ox 98 03/23/21 06:32 03/22/21 03/23/21 03/23/21 22:59 06:59 14:59 Intake Total 596.056 / 1965.978 372.668 / 2338.646 Output Total 400 / 400 400 / 800 Balance 196.056 / 1565.978 -27.332 / 1538.646 Weight last 48 hrs Weight 216 lb Physical Exam Chest: COMMONS NORMALS: normal inspection of the chest OTHER: Defibrillator pads in position. Resp: COMMON NORMALS: No use of accessory muscles and clear to auscultation bilaterally AUSCULTATION: clear to auscultation bilaterally OTHER: Remains orally intubated. Cardio: COMMON NORMALS: regular rate and S1 normal heart sound present RATE: regular rate HEART SOUNDS: S1 normal heart sound present Urinary Catheter Management^: Razo: Cath Placed During This Visit: yes Reason for Continuing Indwelling Catheter: Accurate Measurement of Urinary Output in Critically Ill Patients Urinary Catheter Date of Insertion: 03/22/21 Urinary Catheter Time of Insertion: 03:39 Data : 03/23/21 02:42 03/23/21 02:42 A&P Assessment and plan (1) Ventricular fibrillation: Severe cardiomyopathy with ventricular tachycardia/fibrillation required cardioversion and subsequent intubation. Tentatively scheduled for AICD placement late this morning, pending insurance approval. Status: Acute Attestations Medical Necessity Statement*: Severe cardiomyopathy with ventricular arrhythmia requiring cardioversion Time Spent in Patient Care: less than 15 minutes Coding Level of Care Code Acute Customer Counter Associate for [facility] Diagnoses Ventricular fibrillation I49.01
--- NOTE | 2021-03-23 09:43 | PC.NURSE ---
Multiple visitors throughout stay. Patient and again educated on visitors restrictions (2 visitors per day, 8am to 8pm).
--- NOTE | 2021-03-23 10:23 | P.ANESASSM_ITS ---
Pre-Anesthetic Assessment Pre-Anesthetic Assessment: Height/Weight: Height 1.83 m Weight 97.976 kg Temp Pulse Resp BP Pulse Ox 98.2 F 83 20 H 108/70 98 03/22/21 16:00 03/23/21 08:00 03/23/21 08:00 03/23/21 08:00 03/23/21 08:00 Proposed Procedure: Operation Date: 03/15/21 13:50 Proposed Procedures p Cardiac Catheterization(Not Applicable) - Elton Nickerson M.D Operation Date: 03/23/21 09:45 Proposed Procedures p Defibrillator Placement(Not Applicable) - Keegan Ashby MD Was Beta Damon taken within 24 hours: N/A Was Clonidine taken within 24 hours: N/A Social: Social History: Tobacco and No alcohol Exam: Pre-Anes Outpt Exam: alert, oriented x 3 and regular rate & rhythm Airway: Submandibular: WNL Cervical ROM: WNL MP: 2 Additional comments: Intubated Pulmonary: Pulmonary: COPD CV/HEM: CV/HEM: Arrythmia (V.fib, code), CHF (EF 15%), HTN and DC (recent STEMI) Comments: dobutrex, amio gtt : : Chronic renal Insufficiency Metabolic: Metabolic: Morbid obesity Anesthetic Plan: ASA status: 3 Anesthesia: General Risk of > 500 ml blood loss (7ml/kg in children): No Meds/Allergies Current Medications: Current Medications Generic Name Dose Route Start Last Admin Trade Name Freq PRN Reason Stop Dose Admin Acetaminophen 650 mg 03/15/21 15:27 03/20/21 12:39 Acetaminophen 32 5 Mg Tablet PO 650 mg Q6H PRN Administration MILD PAIN Al Hydrox/Mg [place] x/Simethicone 30 ml 03/15/21 15:27 03/16/21 10:52 Ehlp-Jzt-Ivigdws de-Jose 30 Ml Udc PO 30 ml Q15M PRN Administration INDIGESTION Aspirin 81 mg 03/16/21 09:00 03/23/21 09:02 Aspirin 81 Mg Ec Tablet PO Not Given DAILY JAYJAY Atorvastatin Calci um 80 mg 03/15/21 21:00 03/22/21 21:13 Atorvastatin 40 Mg Tablet PO Not Given BEDTIME JAYJAY Benzonatate 100 mg 03/19/21 15:00 03/23/21 09:02 Benzonatate 100 Mg Capsule PO Not Given TID JAYJAY Fluticasone Propio ashok 1 spray 03/20/21 10:18 03/23/21 09:02 Fluticasone Nasa l [place] 16gm Btl NASAL Not Given DAILY JAYJAY Heparin Sodium (Po rcine) 5,000 unit 03/16/21 18:00 03/20/21 05:52 Heparin 5,000 Un it/Ml Inj 1 Ml SUBCUT 5,000 unit Q12H JAYJAY Administration Dobutamine HCl/Dex trose 500 mg in 250 mls @ 0 mls/hr 03/16/21 18:00 03/22/21 19:57 Dobutamine Drip IV 5 mcg/kg/min .Q0M JAYJAY 14.63 mls/hr Administration Protocol Per Protocol Amiodarone HCl 900 mg/ 518 mls @ 0 mls/h r 03/21/21 23:30 03/22/21 20:35 Dextrose/ IV Misce llaneous IV 0.5 mg/min Supplies .Q0M JAYJAY 17.27 mls/hr Administration Protocol Per Protocol Lidocaine HCl/Dext rasheed 2,000 mg in 500 m ls @ 15 mls/hr 03/22/21 01:00 03/23/21 01:20 Lidocaine Drip IV Not Given .Q24H JAYJAY 1 MG/MIN Fentanyl 1,000 mcg / Sodium 100 mls @ 0 mls/h r 03/22/21 01:30 03/22/21 23:02 Chloride IV 75 mcg/hr .Q0M JAYJAY 7.5 mls/hr Administration Protocol Per Protocol Midazolam HCl 100 mg/ Sodium 100 mls @ 0 mls/h r 03/22/21 01:30 03/22/21 05:49 Chloride IV 0 mg/hr .Q0M JAYJAY 0 mls/hr Titration Protocol Per Protocol Phenylephrine HCl 25 mg/ 252.5 mls @ 0 mls /hr 03/22/21 01:51 03/23/21 05:44 Sodium Chloride IV 20 mcg/min .Q0M PRN 12.12 mls/hr hypotension Titration Protocol Per Protocol Propofol 1,000 mg in 100 m ls @ 0 mls/hr 03/22/21 02:30 03/22/21 02:41 Diprivan IV 0 mcg/kg/min .Q0M PRN 0 mls/hr sedation Titration Protocol Per Protocol Losartan Potassium 25 mg 03/21/21 21:00 03/23/21 09:02 Losartan 50 Mg T ablet PO Not Given DAILY JAYJAY Metoclopramide HCl 5 mg 03/18/21 09:09 03/18/21 17:04 Metoclopramide 5 Mg/Ml Sdv 2 Ml IVP 5 mg Q6H PRN Administration NAUSEA AND VOMITI NG Phenylephrine HCl 1 spray 03/20/21 13:08 03/20/21 13:23 Phenylephrine 0. 5% Nasal 15 Ml Btl NASAL 1 dose Q4H PRN Administration Nose bleed Senna 17.2 mg 03/16/21 21:00 03/22/21 21:13 Sennosides 8.6 M g Tablet PO Not Given BEDTIME JAYJAY PFSH Anesthesia PFSH: Medical History No pertinent past medical history Surgical History No pertinent past surgical history Family History Sister CAD (coronary artery disease) Social History Smoking and tobacco status: current some day smoker Data Anesthesia CBC & Chem 7: 03/23/21 02:42 03/23/21 02:42 Other Labs: Laboratory Results - last 48 hr 03/21/21 03/21/21 03/22/21 23:27 23:27 01:07 WBC 9.0 RBC 4.34 Hgb 13.3 Hct 39.0 L MCV 89.9 MCH 30.6 MCHC 34.1 RDW 14.4 Plt Count 87 L MPV 12.5 H Neut % (Auto) 82.0 Lymph % (Auto) 8.4 [place] % (Auto) 7.6 Eos % (Auto) 1.1 Baso % (Auto) 0.3 Neut # (Auto) 7.38 Lymph # (Auto) 0.8 [place] # (Auto) 0.7 Eos # (Auto) 0.1 Baso # (Auto) 0.0 Nucleated RBC % (auto) 0 Nucleated RBCs # 0.0 Specimen Type Sample Site ABG pH ABG pCO2 ABG pO2 ABG HCO3 ABG O2 Saturation ABG Base Excess Van Test A-a O2 Gradient Hematocrit Hgb O2 Saturation Carboxyhemoglobin Methemoglobin Total Hemoglobin Ionized Calcium O2 Delivery Device FiO2 Tidal Volume PEEP Strand Galvanizer ID Sodium 131 L Potassium 3.7 Chloride 100 Carbon Dioxide 22 Anion Gap 12.7 BUN 25 H Creatinine 0.7 GFR Calculation 116.2 Glucose 133 H POC Glucose 108 Calculated Osmolality 278 L Calcium 7.3 L Magnesium 1.6 L Total Bilirubin AST ALT Alkaline Phosphatase Total Protein Albumin Globulin 03/22/21 03/22/21 03/22/21 03:35 03:35 03:43 WBC 11.4 H RBC 4.57 Hgb 13.9 Hct 41.8 L MCV 91.5 MCH 30.4 MCHC 33.3 RDW 14.3 Plt Count 124 L D MPV 12.1 H Neut % (Auto) 86.9 Lymph % (Auto) 5.6 [place] % (Auto) 6.4 Eos % (Auto) 0.4 Baso % (Auto) 0.3 Neut # (Auto) 9.86 H Lymph # (Auto) 0.6 L [place] # (Auto) 0.7 Eos # (Auto) 0.1 Baso # (Auto) 0.0 Nucleated RBC % (auto) 0.2 Nucleated RBCs # 0.0 Specimen Type Arterial Sample Site Radial, right ABG pH 7.38 ABG pCO2 39.2 ABG pO2 92.3 ABG HCO3 23.0 ABG O2 Saturation 97.1 ABG Base Excess -2.0 Van Test Pos A-a O2 Gradient 14.4 H Hematocrit 43.4 Hgb O2 Saturation 95.2 Carboxyhemoglobin 0.9 Methemoglobin 1.1 Total Hemoglobin 14.2 Ionized Calcium 1.2 O2 Delivery Device Vent FiO2 35.0 Tidal Volume 0.55 PEEP 5.0 Strand Galvanizer ID ellpe Sodium 132 L 132.0 Potassium 4.0 3.7 Chloride 100 Carbon Dioxide 23 Anion Gap 13.0 BUN 24 H Creatinine 1.2 GFR Calculation 62.4 L Glucose 130 H 142.0 H POC Glucose Calculated Osmolality 280 L Calcium 7.3 L Magnesium Total Bilirubin 2.3 H AST 279 H ALT 757 H Alkaline Phosphatase 175 H Total Protein 4.9 L Albumin 2.5 L Globulin 2.4 03/22/21 03/22/21 03/23/21 08:11 22:14 02:42 WBC 10.6 H RBC 4.22 Hgb 12.7 Hct 38.7 L MCV 91.7 MCH 30.1 MCHC 32.8 RDW 14.7 Plt Count 105 L MPV 11.8 H Neut % (Auto) 84.2 Lymph % (Auto) 6.7 [place] % (Auto) 7.8 Eos % (Auto) 0.4 Baso % (Auto) 0.3 Neut # (Auto) 8.94 H Lymph # (Auto) 0.7 L [place] # (Auto) 0.8 Eos # (Auto) 0.0 Baso # (Auto) 0.0 Nucleated RBC % (auto) 0 Nucleated RBCs # 0.0 Specimen Type Sample Site ABG pH ABG pCO2 ABG pO2 ABG HCO3 ABG O2 Saturation ABG Base Excess Van Test A-a O2 Gradient Hematocrit Hgb O2 Saturation Carboxyhemoglobin Methemoglobin Total Hemoglobin Ionized Calcium O2 Delivery Device FiO2 Tidal Volume PEEP Strand Galvanizer ID Sodium Cancelled 131 L Potassium Cancelled 4.5 Chloride Cancelled 97 L Carbon Dioxide Cancelled 22 Anion Gap Cancelled 16.5 BUN Cancelled 30 H Creatinine Cancelled 1.3 H GFR Calculation Cancelled 56.9 L Glucose Cancelled 105 POC Glucose Calculated Osmolality Cancelled 279 L Calcium Cancelled 7.5 L Magnesium Cancelled 1.9 Total Bilirubin Cancelled 2.4 H AST Cancelled 188 H ALT Cancelled 607 H Alkaline Phosphatase Cancelled 159 H Total Protein Cancelled 5.4 L Albumin Cancelled 2.6 L Globulin Cancelled 2.8 03/23/21 02:42 WBC RBC Hgb Hct MCV MCH MCHC RDW Plt Count MPV Neut % (Auto) Lymph % (Auto) [place] % (Auto) Eos % (Auto) Baso % (Auto) Neut # (Auto) Lymph # (Auto) [place] # (Auto) Eos # (Auto) Baso # (Auto) Nucleated RBC % (auto) Nucleated RBCs # Specimen Type Sample Site ABG pH ABG pCO2 ABG pO2 ABG HCO3 ABG O2 Saturation ABG Base Excess Van Test A-a O2 Gradient Hematocrit Hgb O2 Saturation Carboxyhemoglobin Methemoglobin Total Hemoglobin Ionized Calcium O2 Delivery Device FiO2 Tidal Volume PEEP Strand Galvanizer ID Sodium 132 L Potassium 4.5 Chloride 99 Carbon Dioxide 22 Anion Gap 15.5 BUN 31 H Creatinine 1.0 GFR Calculation 77.0 L Glucose 106 POC Glucose Calculated Osmolality 281 L Calcium 7.3 L Magnesium 1.8 Total Bilirubin 2.1 H AST 149 H ALT 528 H Alkaline Phosphatase 144 H Total Protein 5.0 L Albumin 2.5 L Globulin 2.5 Cardiac Studies: Echocardiogram 03/18/21
--- NOTE | 2021-03-23 10:48 | PM.PN ---
Subjective Subjective: Interval history: Denies any complaints today. He is awake and alert, communicates by writing. Awaiting ICD implantation procedure. Vitals/I&O/Wt Last Vital Signs Temp 98.2 F 03/22/21 16:00 Pulse 83 03/23/21 08:00 Resp 20 H 03/23/21 08:00 BP 108/70 03/23/21 08:00 Pulse Ox 98 03/23/21 08:00 03/22/21 03/23/21 03/23/21 22:59 06:59 14:59 Intake Total 596.056 / 1965.978 372.668 / 2338.646 52 / 52 Output Total 400 / 400 400 / 800 Balance 196.056 / 1565.978 -27.332 / 1538.646 52 / 52 Weight last 48 hrs Weight 97.976 kg Physical Exam Narrative: EXAM NARRATIVE: at bedside. Const: COMMON NORMALS: no acute distress and alert GENERAL APPEARANCE: cooperative, comfortable and patient mechanically ventilated ORIENTATION/CONSCIOUSNESS: Yes awake OTHER: Moves all extremities, squeezes both hands. HENMT: COMMON NORMALS: oropharynx normal Neck/C-Spine: COMMON NORMALS: no JVD Resp: COMMON NORMALS: normal respiratory effort and clear to auscultation bilaterally AUSCULTATION: clear to auscultation bilaterally Cardio: COMMON NORMALS: no JVD, regular rhythm, S1 normal heart sound present, S2 normal heart sound present and No murmurs present (Cardio) RHYTHM: regular rhythm HEART SOUNDS: S1 normal heart sound present and S2 normal heart sound present GI: COMMON NORMALS: Normal to inspection, nondistended, normoactive bowel sounds present, Soft to palpation and non-tender PALPATION: Yes Soft to palpation Extremity: COMMON NORMALS: no joint enlargement and no pedal edema OTHER: Swelling R bulmaro-medial forearm, distal bicep after IV infiltration Neuro: COMMON NORMALS: moves all extremities SENSORIUM/ORIENTATION: Yes alert Skin: COMMON NORMALS: no rashes or lesions noted GENERAL SKIN EXAM: no rashes or lesions noted Urinary Catheter Management^: Razo: Cath Placed During This Visit: yes Reason for Continuing Indwelling Catheter: Accurate Measurement of Urinary Output in Critically Ill Patients Urinary Catheter Date of Insertion: 03/22/21 Urinary Catheter Time of Insertion: 03:39 Data : 03/23/21 02:42 03/23/21 02:42 A&P Assessment and plan (1) Ventricular fibrillation: Planned AICD placement this morning. Should have no barriers to extubation subsequently. On minimal vent settings. Weaning off pressor. Appreciate cardiology recommendations. Continue amiodarone. He is weaned off lidocaine drip. Status: Acute (2) Cardiogenic shock: Improving. Intubated, mechanically ventilated. Weaning down on phenylephrine. Down to minimal rate. Wean off dobutamine. He is awake, alert, communicating. Status: Acute (3) ST elevation myocardial infarction (STEMI): Status post revascularization to OM1. Continue aspirin, statin. Resume Plavix when safe with surgery. Status: Acute Qualifiers: Involved coronary artery: LAD coronary artery Qualified Code(s): I21.02 - ST elevation (STEMI) myocardial infarction involving left anterior descending coronary artery (4) SANAM (acute kidney injury): Fluctuating creatinine, overall improved compared to admission. Monitor renal function, I&O. Status: Acute (5) HFrEF (heart failure with reduced ejection fraction): Status: Acute (6) Hyperkalemia: Status: Acute (7) High anion gap metabolic acidosis: Status: Acute (8) Shock liver: Status: Acute (9) Transaminitis: Improving Status: Acute (10) Blue toes: Improving. Most likely secondary to cardiogenic shock versus pressor requirement. Lower limb arterial Dopplers appreciated without any acute occlusion. Wean off pressors as above. Continue optimization of management of cardiovascular disease. Status: Acute (11) Thrombocytopenia: With improvement, recheck level. Status: Acute Additional A&P Information Infiltrated IV: Right forearm while increasing amiodarone. Infusion discontinued. Arm elevated, with noted swelling of forearm, distal bicep. Monitor. Hypomagnesemia: Additional 1 g magnesium. Fever: 99.9F on 03/18. COVID-19 PCR negative. Less likely infectious. Blood cultures so far negative. Attestations Medical Necessity Statement*: Continue admission for arrangements for placement of AICD following life-threatening arrhythmia in the setting of ischemic cardiomyopathy, weaning off pressors, discontinuation of mechanical ventilatory support. Critical Care Time: The high probability of a clinically significant, sudden or life threatening deterioration of the patient's cardiac, hemodynamic system(s) required my full and direct attention, intervention and personal management. The critical care time is as shown. This time is in addition to time spent performing any reported procedures but includes the following: x Data and vital sign review and interpretation x Patient assessment, examination and intervention x Documentation x Medication orders and management Critical Care Time (min): 40 Coding Level of Care Code Acute Biology Department Chair for Anhg Fwd Diagnoses Ventricular fibrillation I49.[address] elevation myocardial infarction (STEMI) I21.02 Involved coronary artery: LAD coronary artery SANAM (acute kidney injury) N17.9 HFrEF (heart failure with reduced ejection fraction) I50.20 Hyperkalemia E87.5 High anion gap metabolic acidosis E87.2 Shock liver K72.00 Transaminitis R74.01 Blue toes R23.0 Thrombocytopenia D69.6
--- NOTE | 2021-03-23 11:10 | SC_ITS ---
WS: [id number] C-ARM RADIOGRAPHS CHEST; 2 IMAGES HISTORY: DEFIB PLACEMENT COMPARISON: None available. Intraoperative imaging during defibrillator placement. SC/C-arm FL for Pacemaker IMPRESSION: Intraoperative imaging during cardiac defibrillator placement.
--- NOTE | 2021-03-23 11:49 | PC.NURSE ---
To OR at [address] Palacios and OR staff. Family at bedside.
[2021-03-23] MEDS: ceFAZolin 1,000 mg SDV 2000 MG IVP (12:24)
[2021-03-23] MEDS: ceFAZolin 1,000 mg SDV 1000 MG IRRIGATION (12:25)
[2021-03-23] MEDS: lidocaine 1% INJ 20 mL INJECTION (12:25)
--- NOTE | 2021-03-23 13:34 | PM.OP ---
Operative Report Date of procedure: March 23, 2021 Pre-op Diagnosis: Ischemic cardiomyopathy with ventricular arrhythmias including fibrillation Post-op diagnosis: same Procedure Done: Dual-lead automatic implantable cardiac defibrillator placement Implants: Atrial and ventricular leads AICD generator Pathology: none sent Surgeon: Keegan Ashby Anesthesia: MAC Complications: None: Post procedure chest x-ray pending Condition: stable Disposition: ICU Brief History: Mr. Garrett is a 56-year-old gentleman with severe ischemic cardiomyopathy status post percutaneous intervention. Earlier this week prior to scheduled discharge he developed severe ventricular arrhythmias including tachycardia and fibrillation requiring external cardioversion. He was orally intubated for airway protection post event. He is neurologically intact. Due to the severe nature of his arrhythmias, Dr. Colby is recommended AICD implantation prior to discharge. Most recent echocardiogram reveals ejection fraction of approximately 20%. Details of risk of implantation were carefully discussed with Mr. Garrett's . All questions answered. Appropriate consents reviewed and signed. Procedure: Procedure: Mr. Garrett was taken to the OR suite and placed in the supine position over a shoulder roll. He received conscious sedation with continuous anesthesia monitoring he remains orally intubated. His entire chest was sterilely prepped and draped. 1% lidocaine was infiltrated in the right subclavicular region. While in Trendelenburg position, utilizing modified seldinger technique, 2 guidewires were placed in the right subclavian vein. They were confirmed in position by fluoroscopy. Next, after infiltration with lidocaine, a subcutaneous pocket was created beginning from the exit point of the guidewires and extending laterally and inferiorly. Cautery was utilized to create the pocket just above the pectoralis musculature. Hemostasis was confirmed. An antibiotic-soaked sponge was placed in the wound. A dilator and tear-away sheath was placed over the guidewire and advanced under fluoroscopy. Guidewire and dilator were removed. Next using a combination of curved and straight stylettes, the right ventricular lead was placed in position by fluoroscopy. The distal screw was extended. Interrogation was then performed confirming appropriate parameters. The tear-away sheath was then removed and the ventricular lead was sewn to the floor of the subcutaneous pocket. Next, right atrial lead was placed in a similar fashion with fluoroscopic guidance. Generator was brought into the field, and after confirmation of hemostasis in the subcutaneous pocket, the leads was connected to the generator with appropriate capture. The entire system was interrogated by fluoroscopy. Leads and generator were secured in the pocket. Sponge and needle count was correct. The wound was then closed in 2 layers of 3-0 Vicryl suture. Skin was reapproximated in a subcuticular manner with 4-0 Monocryl suture. A pressure dressing was applied. The left arm was placed in a sling. Mr. Garrett had equal breath sounds bilaterally. He was then transferred back to ICU, where chest x-ray is currently pending. I did correctional classification counselor with the family at the completion of the procedure. Following are the specifics of this system: Right ventricular lead is 62 cm and model 6935M. Serial number [id number] Ventricular lead had sensing of 7.4 mV with an impedance of 465 ohms. Threshold was 0.75 V Right atrial lead is 52 cm and model 5076. Serial Number: [id number] Right atrial lead had a sensing of 1.8 mV with an impedance of 561 ohms. Threshold is 0.5 V Splyst AICD generator:
--- NOTE | 2021-03-23 14:04 | ANE.PACU2 ---
Inpatient post-anesthesia follow up: Airway intact: Yes Vital signs: Temperature 98.2 F Pulse Rate 83 Respiratory Rate 15 Blood Pressure [Le ft Arm] 105/71 Blood Pressure 108/70 Pulse Oximetry 96 Oxygen Delivery Me thod [ Room Air Current Rate & Del holley] Oxygen Delivery Me thod Mechanical Ventila tion Oxygen Flow Rate Fraction of Inspir ed Oxygen 35 Hydration adequate: Yes Nausea and vomiting: No Pain level: 1 Mental status: Baseline Additional Comments: Intubated back to ICU, stable.
--- NOTE | 2021-03-23 14:09 | PC.NURSE ---
Back to ICU at 1347 via bed, accompanied by OR staff. Patient alert and oriented. ETT in place. VSS.
--- NOTE | 2021-03-23 16:18 | PC.NURSE ---
Extubated 1610 by RT.
--- NOTE | 2021-03-23 19:21 | PM.PN ---
Subjective Subjective: Interval history: Patient is feeling much better. He is currently extubated. He underwent dual-chamber ICD implantation today. Medications: Reviewed: Yes Medication Review Details: Current Medications Acetaminophen (Acetaminophen 325 Mg Tablet) 650 mg PO Q6H PRN PRN Reason: MILD PAIN Last Admin: 03/20/21 12:39 Dose: 650 mg Documented by: Al Hydrox/Mg Hydrox/Simethicone (Tjyu-Keo-Bevrgkuki-Jose 30 Ml Udc) 30 ml PO Q15M PRN PRN Reason: INDIGESTION Last Admin: 03/16/21 10:52 Dose: 30 ml Documented by: Aspirin (Aspirin 81 Mg Ec Tablet) 81 mg PO DAILY [facility] Last Admin: 03/23/21 09:02 Dose: Not Given Documented by: Atorvastatin Calcium (Atorvastatin 40 Mg Tablet) 80 mg PO BEDTIME [facility] Last Admin: 03/22/21 21:13 Dose: Not Given Documented by: Atropine Sulfate (Atropine 1 Mg/Ml Sdv 1 Ml) 0.5 mg IVP PRN PRN PRN Reason: Symptomatic bradycardia Benzonatate (Benzonatate 100 Mg Capsule) 100 mg PO TID [facility] Last Admin: 03/23/21 14:49 Dose: Not Given Documented by: Fluticasone Propionate (Fluticasone Nasal [place] 16gm Btl) 1 spray NASAL DAILY [facility] Last Admin: 03/23/21 09:02 Dose: Not Given Documented by: Guaifenesin/Codeine Phosphate (Guaifenesin-Codeine Udc 10 Ml) 5 ml PO Q6H PRN PRN Reason: COUGH Dobutamine HCl/Dextrose (Dobutamine Drip) 500 mg in 250 mls @ 0 mls/hr IV .Q0M [facility]; Protocol Last Titration: 03/23/21 15:53 Dose: Infused Documented by: Amiodarone HCl 900 mg/Dextrose/ IV Miscellaneous Supplies 518 mls @ 0 mls/hr IV .Q0M [facility]; Protocol Last Admin: 03/22/21 20:35 Dose: 0.5 mg/min, 17.27 mls/hr Documented by: Lidocaine HCl/Dextrose (Lidocaine Drip) 2,000 mg in 500 mls @ 15 mls/hr IV .Q24H [facility] Last Admin: 03/23/21 01:20 Dose: Not Given Documented by: Fentanyl 1,000 mcg/ Sodium (Chloride) 100 mls @ 0 mls/hr IV .Q0M [facility]; Protocol Last Titration: 03/23/21 15:30 Dose: 0 mcg/hr, 0 mls/hr Documented by: Norepinephrine Bitartrate 4 mg (/ Dextrose) 254 mls @ 0 mls/hr IV .Q0M PRN; Protocol PRN Reason: hypotension Midazolam HCl 100 mg/ Sodium (Chloride) 100 mls @ 0 mls/hr IV .Q0M [facility]; Protocol Last Titration: 03/22/21 05:49 Dose: 0 mg/hr, 0 mls/hr Documented by: Phenylephrine HCl 25 mg/ (Sodium Chloride) 252.5 mls @ 0 mls/hr IV .Q0M PRN; Protocol PRN Reason: hypotension Last Titration: 03/23/21 14:48 Dose: 0 mcg/min, 0 mls/hr Documented by: Propofol (Diprivan) 1,000 mg in 100 mls @ 0 mls/hr IV .Q0M PRN; Protocol PRN Reason: sedation Last Titration: 03/22/21 02:41 Dose: 0 mcg/kg/min, 0 mls/hr Documented by: Cefazolin Sodium 2,000 mg/ (Sodium Chloride) 60 mls @ 100 mls/hr IV Q8H [facility] Stop: 03/24/21 12:35 Losartan Potassium (Losartan 50 Mg Tablet) 25 mg PO DAILY [facility] Last Admin: 03/23/21 09:02 Dose: Not Given Documented by: Magnesium Hydroxide (Magnesium Hydroxide 30 Ml Udc) 30 ml PO DAILY PRN PRN Reason: CONSTIPATION Metoclopramide HCl (Metoclopramide 5 Mg/Ml Sdv 2 Ml) 5 mg IVP Q6H PRN PRN Reason: NAUSEA AND VOMITING Last Admin: 03/18/21 17:04 Dose: 5 mg Documented by: Naloxone HCl (Naloxone 0.4 Mg/Ml Sdv) 0.1 mg IVP Q2M PRN PRN Reason: RESPIRATORY RATE < 8/MIN Nitroglycerin (Nitroglycerin 0.4 Mg Sublingual Tablet) 0.4 mg SUBLINGUAL Q5M PRN PRN Reason: CHEST PAIN Phenylephrine HCl (Phenylephrine 0.5% Nasal 15 Ml Btl) 1 spray NASAL Q4H PRN PRN Reason: Nose bleed Last Admin: 03/20/21 13:23 Dose: 1 dose Documented by: Angelique (Sennosides 8.6 Mg Tablet) 17.2 mg PO BEDTIME [facility] Last Admin: 03/22/21 21:13 Dose: Not Given Documented by: Vitals/I&O/Wt Last Vital Signs Temp 98.2 F 03/23/21 14:17 Pulse 86 03/23/21 17:00 Resp 18 03/23/21 17:00 BP 118/77 03/23/21 17:00 Pulse Ox 99 03/23/21 17:00 03/23/21 03/23/21 03/23/21 06:59 14:59 22:59 Intake Total 372.668 / 2338.646 232.800 / 232.800 495.625 / 728.425 Output Total 400 / 800 450 / 450 400 / 850 Balance -27.332 / 1538.646 -217.200 / -217.200 95.625 / -121.575 Weight last 48 hrs Weight 216 lb Physical Exam Narrative: EXAM NARRATIVE: GENERAL: The patient is currently alert and oriented x3 HEENT: No significant pallor, icterus or lymphadenopathy.Oral cavity: There are no mucous membrane lesions. NECK: Trachea appears to be central. No masses noted. No JVD or thyromegaly appreciated. RESPIRATORY: Chest is symmetrical. No intercostals muscle retraction or any accessory muscle activation. There is no chest wall tenderness. Breath sounds are heard bilaterally. No rales or rhonchi heard. No evidence of any consolidation. BREASTS: Deferred. HEART: The heart sounds are normal. No S3 or S4. Short systolic murmur in the left sternal border. No diastolic murmurs. No pericardial rub ABDOMEN: No vessel pulsations or distention. No tenderness. No organomegaly appreciated. Bowel sounds are normally heard. : Deferred. RECTAL: Deferred. LYMPHATIC: No lymphadenopathy noted in the neck or groin. EXTREMITIES: No edema . The peripheral cyanosis in the toes has significantly improved MUSCULOSKELETAL: No acute joint deformities or swelling SKIN: There are no significant rashes or ecchymosis NEUROPSYCHIATRIC: No focal motor deficits Urinary Catheter Management^: Razo: Cath Placed During This Visit: yes Reason for Continuing Indwelling Catheter: Accurate Measurement of Urinary Output in Critically Ill Patients Urinary Catheter Date of Insertion: 03/22/21 Urinary Catheter Time of Insertion: 03:39 Data : 03/24/21 03:00 03/24/21 03:00 Other Labs: Laboratory Last Values WBC 10.6 10^3/uL (4.0-10.0) H 03/23/21 02:42 Corrected WBC Cancelled 03/17/21 07:26 RBC 4.22 10^6/uL (4.1-5.3) 03/23/21 02:42 Hgb 12.7 g/dL (11.7-16.6) 03/23/21 02:42 Hct 38.7 % (42.0-52.0) L 03/23/21 02:42 MCV 91.7 fl (80-94) 03/23/21 02:42 MCH 30.1 pg (28.0-34.0) 03/23/21 02:42 MCHC 32.8 g/dL (30.0-36.0) 03/23/21 02:42 RDW 14.7 % (12.1-15.1) 03/23/21 02:42 Plt Count 105 10^3/cmm (130-400) L 03/23/21 02:42 MPV 11.8 fL (7.4-10.4) H 03/23/21 02:42 Gran % Cancelled 03/17/21 07:26 Neut % (Auto) 84.2 % 03/23/21 02:42 Lymph % (Auto) 6.7 % 03/23/21 02:42 [place] % (Auto) 7.8 % 03/23/21 02:42 Eos % (Auto) 0.4 % 03/23/21 02:42 Baso % (Auto) 0.3 % 03/23/21 02:42 Neut # (Auto) 8.94 10^3/uL (1.8-7.7) H 03/23/21 02:42 Lymph # (Auto) 0.7 10^3/uL (0.8-4.8) L 03/23/21 02:42 [place] # (Auto) 0.8 10^3/uL (0.2-0.9) 03/23/21 02:42 Eos # (Auto) 0.0 10^3/uL (0.0-0.8) 03/23/21 02:42 Baso # (Auto) 0.0 10^3/uL (0.0-0.1) 03/23/21 02:42 Absolute Gran (auto) Cancelled 03/17/21 07:26 Nucleated RBC % (auto) 0 % 03/23/21 02:42 Nucleated RBCs # 0.0 /100WBC 03/23/21 02:42 PT 18.90 SECONDS (12.1-14.9) H 03/15/21 17:40 INR 1.55 (0.8-1.2) H 03/15/21 17:40 APTT 31.0 SECONDS (23.9-36.7) 03/15/21 20:35 Specimen Type Arterial 03/22/21 03:43 Sample Site Radial, right 03/22/21 03:43 ABG pH 7.38 (7.35-7.45) 03/22/21 03:43 ABG pCO2 39.2 mmHg (35-45) 03/22/21 03:43 ABG pO2 92.3 mmHg (80.0-100.0) 03/22/21 03:43 ABG HCO3 23.0 mmol/L (22-26) 03/22/21 03:43 ABG O2 Saturation 97.1 03/22/21 03:43 ABG Base Excess -2.0 mmol/L (-2.0-2.0) 03/22/21 03:43 Van Test Pos 03/22/21 03:43 A-a O2 Gradient 14.4 mmHg (5-10) H 03/22/21 03:43 Hematocrit 43.4 % (42-52) 03/22/21 03:43 Hgb O2 Saturation 95.2 % (95-100) 03/22/21 03:43 Carboxyhemoglobin 0.9 %THgb (0.4-20.1) 03/22/21 03:43 Methemoglobin 1.1 % (0.4-1.5) 03/22/21 03:43 Total Hemoglobin 14.2 g/dL (14-18) 03/22/21 03:43 Sodium 132.0 mmol/L (131-143) 03/22/21 03:43 Potassium 3.7 mmol/L (3.5-5.0) 03/22/21 03:43 Glucose 142.0 mg/dL (70-115) H 03/22/21 03:43 Ionized Calcium 1.2 mmol/L (1.1-1.4) 03/22/21 03:43 O2 Delivery Device Vent 03/22/21 03:43 FiO2 35.0 % 03/22/21 03:43 Tidal Volume 0.55 03/22/21 03:43 PEEP 5.0 cmH20 03/22/21 03:43 Roof Service Technician ID [email or web address] 03/22/21 03:43 Sodium 132 mmol/L (136-145) L 03/23/21 02:42 Potassium 4.5 mmol/L (3.5-5.1) 03/23/21 02:42 Chloride 99 mmol/L (98-107) 03/23/21 02:42 Carbon Dioxide 22 mmol/L (22-29) 03/23/21 02:42 Anion Gap 15.5 (5-19) 03/23/21 02:42 BUN 31 mg/dL (6-20) H 03/23/21 02:42 Creatinine 1.0 mg/dL (0.7-1.2) 03/23/21 02:42 GFR Calculation 77.0 mL/min (90-130) L 03/23/21 02:42 Glucose 106 mg/dL (65-115) 03/23/21 02:42 POC Glucose 108 mg/dL (70-110) 03/22/21 01:07 Estimat Average Glucose 120 03/17/21 07:26 Hemoglobin A1c 5.8 % (4.0-6.0) 03/17/21 07:26 Calculated Osmolality 281 mOsm/kg (285-295) L 03/23/21 02:42 Lactic Acid 7.9 mmol/L (0.5-2.2) H* 03/16/21 18:33 Lactic Acid (Sepsis) 6.0 mmol/L (0.5-2.2) H* 03/16/21 21:19 Lactate 3.2 mmol/L (0.5-2.2) H 03/18/21 07:30 Uric Acid 8.9 mg/dL (3.4-7.0) H 03/16/21 05:00 Calcium 7.3 mg/dL (8.5-10.5) L 03/23/21 02:42 Phosphorus 2.8 mg/dL (2.5-4.5) 03/18/21 13:41 Magnesium 1.8 mg/dL (1.7-2.3) 03/23/21 02:42 Iron 59 ug/dL (59-158) 03/16/21 15:32 TIBC 292 mcg/dl 03/16/21 15:32 % Saturation 20.2 % (20-50) 03/16/21 15:32 Unsat Iron Binding 233 ug/dL (112-347) 03/16/21 15:32 Total Bilirubin 2.1 mg/dL (0.15-1.2) H 03/23/21 02:42 AST 149 U/L (0-40) H 03/23/21 02:42 ALT 528 U/L (0-41) H 03/23/21 02:42 Alkaline Phosphatase 144 IU/L (40-130) H 03/23/21 02:42 Creatine Kinase 176 U/L (39-308) 03/15/21 13:41 CK-MB (CK-2) 5.9 ng/mL (0-10.4) 03/15/21 13:41 CK-MB (CK-2) Rel Index % (0.0-5.3) 03/15/21 13:41 Troponin T Baseline 3308 ng/L (0-15) H* 03/15/21 13:41 Troponin T 120 Minute 3230 ng/L (0-15) H 03/15/21 17:40 Delta Troponin T -78 ABS# (0-10) L 03/15/21 17:40 Troponin T Hi Sens 6Hr 4082 ng/L (0-15) H 03/15/21 18:47 Troponin T Hi Sens 6Hr Delta 774 ng/L (0-12) H* 03/15/21 18:47 Total Protein 5.0 g/dL (6.6-8.7) L 03/23/21 02:42 Albumin 2.5 g/dL (3.5-5.2) L 03/23/21 02:42 Globulin 2.5 g/dL (1.3-4.6) 03/23/21 02:42 TSH 2.65 uIU/mL (0.27-4.20) 03/16/21 05:00 Urine Color Yellow (Yellow) 03/16/21 23:30 Urine Appearance Hazy (CLEAR) A 03/16/21 23:30 Urine pH 5 (5-7) 03/16/21 23:30 Ur Specific [place] 1.020 (1.005-1.030) 03/16/21 23:30 Urine Protein 3+ (Negative) H 03/16/21 23:30 Urine Glucose (UA) Trace (Normal) H 03/16/21 23:30 Urine Ketones 1+ (Negative) H 03/16/21 23: Urine Blood 3+ (Negative) H 03/16/21 23:30 Urine Nitrate Negative (Negative) 03/16/21 23: Urine Bilirubin 1+ (Negative) H 03/16/21 23: Urine Urobilinogen 4 mg/dL (Negative) H 03/16/21 23:30 Ur Leukocyte Esterase Trace (Negative) H 03/16/21 23:30 Urine RBC 0-4 /hpf (0-2) H 03/16/21 23:30 Urine WBC 0-4 /hpf (0-5) H 03/16/21 23:30 Ur Eosinophil Smear 0 (0-0) 03/16/21 23:30 Ur Squamous Epith Cells 0-4 /hpf (0-5) H 03/16/21 23:30 Amorphous Sediment 3+ /hpf 03/16/21 23:30 Urine Bacteria 2+ /hpf (NONE) H 03/16/21 23:30 Urine Mucus 2+ /hpf 03/16/21 23:30 Urine Sperm 1+ /hpf 03/16/21 23:30 Urine Eosinophils No eosinophils seen 03/16/21 23:30 Ur Random Creatinine 132 mg/dL (20-320) 03/16/21 23:30 Ur Random Albumin 59 % 03/16/21 23:30 Ur Random Microalbumin 92 ug/dL (0-20) H 03/16/21 23:30 U Random Total Protein 225 mg/dL (5-25) H 03/16/21 23:30 Ur Random Sodium 18 mmol/L 03/16/21 23:30 Ur Random Potassium 75 mmol/L 03/16/21 23:30 Ur Random Chloride 11 mmol/L 03/16/21 23:30 Urine Creatinine 141 mg/dL (39-259) 03/16/21 23:30 Microalb/Creat Ratio 652 mg/dL (0-20) H 03/16/21 23:30 Protein/Creatinin Ratio 1705 mg/g creat (22-128) H 03/16/21 23:30 Protein/Creat Ratio 24h 1.705 (0.022-0.128) H 03/16/21 23:30 U Random c-8-Cjklrtak % 2 % 03/16/21 23:30 U Random v-5-Orhkxvvm % 7 % 03/16/21 23:30 U Random Beta Globulin 20 % 03/16/21 23:30 U Random Gamma Glob 12 % 03/16/21 23:30 U Abnormal Prot Band 1 Not Reportable 03/16/21 23:30 U Abnormal Prot Band 2 Not Reportable 03/16/21 23:30 U Abnormal Prot Band 3 Not Reportable 03/16/21 23:30 Urine PEP Interpret See note 03/16/21 23:30 Coronavirus 229E (PCR) Not detected (NOT DETECT) 03/19/21 12:20 Hepatitis A IgM Ab Non-reactive (Nonreactive) 03/16/21 18:33 Hep Bs Antigen Non-reactive (Nonreactive) 03/16/21 18:33 Hep Bs Antibody 6.5 (11.5-1000) L 03/16/21 18:33 Hep B Core Total Ab Non-reactive (Nonreactive) 03/16/21 18:33 Hepatitis C Antibody Non-reactive (Nonreactive) 03/16/21 18:33 SARS-CoV-2 (PCR) Not detected (NOT DETECT) 03/19/21 12:20 SARS-CoV-2 Ag (Rapid) Negative (Negative) 03/19/21 10:00 A&P Assessment and plan (1) Ventricular fibrillation: Patient status post ICD evaluation. No recurrence of ventricular fibrillation. Currently on IV amiodarone. Once the current IV is finished, may start him on amiodarone 400 mg p.o. twice daily Status: Acute (2) Cardiogenic shock: Patient is alert functions continue to improve. Was started on phenylephrine last night. He also was started on Dobutrex. Dose of these medications are being titrated down. Status: Acute (3) HFrEF (heart failure with reduced ejection fraction): Left ventricular ejection fraction was around 15%. We will continue to optimize his medications. May start him on a low-dose of losartan, if the blood pressure tolerate. May be tapered off the Dobutrex Status: Acute (4) ST elevation myocardial infarction (STEMI): Status post attempted PCI of the LAD. May start him on Plavix 75 mg p.o. daily. Also consider starting him on Eliquis tomorrow and may discontinue the aspirin. In view of the severe LV dysfunction and anterior wall myocardial infarction, patient has a high propensity for LV thrombus. This needs to be discussed Status: Acute Qualifiers: Involved coronary artery: LAD coronary artery Qualified Code(s): I21.02 - ST elevation (STEMI) myocardial infarction involving left anterior descending coronary artery (5) Shock liver: The liver function continues to improve. May continue on the current treatment measures. Status: Acute Additional A&P Information Based on the clinical progress, further recommendations will be made. Attestations Medical Necessity Statement*: Patient requires continued hospital stay for close monitoring and further management Coding Level of Care Code Acute Culinary Artist for [facility] Fwd History Detailed Exam Detailed Medical Decision Making Moderate Complexity Diagnoses Ventricular fibrillation I49.01 Cardiogenic shock R57.0 HFrEF (heart failure with reduced ejection fraction) I50.20 ST elevation myocardial infarction (STEMI) I21.02 Involved coronary artery: LAD coronary artery Shock liver K72.00
[2021-03-23] MEDS: benzonatate 100 mg Capsule PO (20:39)
[2021-03-23] MEDS: atorvastatin 40 mg Tablet 80 MG PO (20:40)
[2021-03-23] MEDS: sennosides 8.6 mg Tablet 17.2 MG PO (20:40)
[2021-03-23] MEDS: amiodarone 200 mg Tablet 400 MG PO (20:40)
[2021-03-24] VITALS (25 sets, daily range): BP systolic 87–122; BP diastolic 55–76; PULSE 77–98; RESP 13–21; TEMP 36.8–36.9; O2SAT 91–100
[2021-03-24 04:44] LABS: Alanine Aminotransferase 374 U/L (0-41); Albumin Level 2.3 g/dL (3.5-5.2); Alkaline Phosphatase 171 IU/L (40-130); Anion Gap 14.5 (5-19); Aspartate Amino Transferase 101 U/L (0-40); Blood Urea Nitrogen 28 mg/dL (6-20); Calcium 7.2 mg/dL (8.5-10.5); Carbon Dioxide 21 mmol/L (22-29); Chloride 99 mmol/L (98-107); Globulin 2.6 g/dL (1.3-4.6); Glucose 114 mg/dL (65-115); Osmolality Calculated 276 mOsm/kg (285-295); Potassium 4.5 mmol/L (3.5-5.1); Sodium 130 mmol/L (136-145); Total Bilirubin 1.6 mg/dL (0.15-1.2); Total Protein 4.9 g/dL (6.6-8.7)
[2021-03-24 04:45] LABS: Basophils % 0.2 %; Eosinophils # 0.1 10^3/uL (0.0-0.8); Eosinophils % 0.7 %; Hemoglobin 11.9 g/dL (11.7-16.6); Lymphocytes # 0.7 10^3/uL (0.8-4.8); Lymphocytes % 7.5 %; Mean Corpuscular HGB Conc 33.1 g/dL (30.0-36.0); Mean Corpuscular Hemoglobin 29.9 pg (28.0-34.0); Mean Corpuscular Volume 90.5 fl (80-94); Mean Platelet Volume 11.9 fL (7.4-10.4); Monocytes # 0.7 10^3/uL (0.2-0.9); Monocytes % 7.9 %; Neutrophils # 7.83 10^3/uL (1.8-7.7); Neutrophils % 83.2 %; Nucleated Red Blood Cells % 0 %; Platelet Count 101 10^3/cmm (130-400); Red Blood Count 3.98 10^6/uL (4.1-5.3); Red Cell Distribution Width 14.5 % (12.1-15.1); White Blood Count 9.4 10^3/uL (4.0-10.0)
--- NOTE | 2021-03-24 05:07 | PC.NURSE ---
No acute changes overnight. Oxygen off and patient doing well on RA. V/S WNL.
--- NOTE | 2021-03-24 05:27 | PC.NURSE ---
Dr. Ashby rounded this morning. Removed pressure dressing from defib site. Received orders to remove shahid catheter, also received orders to remove immobilizer. Patient educated on lifting restrictions per Dr. Ashby.
--- NOTE | 2021-03-24 05:29 | PC.NURSE ---
Shift Note Frequent safety and comfort rounds continue. Orders and/or nursing care completed as indicated. Patient monitored for response to intervention and treatment(s). Education provided includes lifting restrictions. Patient and/or car sales representative verbalizes understanding. Will continue to monitor.
--- NOTE | 2021-03-24 06:25 | P.PN_ITS ---
Subjective Subjective: Interval history: Postop day #1 status post AICD implantation. Surgical dressing removed this morning. Mild ecchymosis along the incision line though no evidence of pocket fluid collection. New dressing applied. Vitals/I&O/Wt Last Vital Signs Temp 98.2 F 03/23/21 14:17 Pulse 84 03/24/21 05:42 Resp 18 03/23/21 17:00 BP 105/73 03/24/21 04:00 Pulse Ox 92 03/24/21 04:00 03/23/21 03/23/21 03/24/21 14:59 22:59 06:59 Intake Total 232.800 / 199.429 4184.408 / 1325.208 120 / 1445.208 Output Total 450 / 450 400 / 850 600 / 1450 Balance -217.200 / -217.200 692.408 / 475.208 -480 / -4.792 Physical Exam Chest: COMMONS NORMALS: normal inspection of the chest OTHER: AICD incision clean and dry with mild ecchymosis. No fluid collection. Urinary Catheter Management^: Razo: Cath Placed During This Visit: yes, but has since been removed by the nurse Reason for Continuing Indwelling Catheter: Accurate Measurement of Urinary Output in Critically Ill Patients Urinary Catheter Date of Insertion: 03/22/21 Urinary Catheter Time of Insertion: 03:39 Date Urinary Catheter Removed: 03/24/21 Time Urinary Catheter Discontinued: 05:28 Data : 03/24/21 03:00 03/24/21 03:00 A&P Assessment and plan (1) Ventricular fibrillation: POD #1 status post AICD implantation. Status: Acute Attestations Medical Necessity Statement*: Status post AICD implantation secondary to aime tricular fibrillation and ischemic cardiomyopathy. Time Spent in Patient Care: less than 15 minutes Coding Level of Care Code Acute Pulp Screen Operator for [facility] Fwd Diagnoses Ventricular fibrillation I49.01
[2021-03-24] MEDS: DOBUTamine drip 500 MG/250 ML PREMIX 7.31 MG IV (07:00)
--- NOTE | 2021-03-24 07:40 | PC.NURSE ---
Report received at shift change. Noted all sedation medications still present in room. Pt extubated yesterday.
--- NOTE | 2021-03-24 08:37 | US_ITS ---
WS: [id number] RIGHT UPPER QUADRANT ULTRASOUND HISTORY: hepatobiliary - cholestasis+ transaminitis COMPARISON: 03/17/2021 Liver: 17.5 cm in length. Liver is very mildly enlarged. No hepatic steatosis. No mass identified or bile duct dilatation. Portal Vein: Normal hepatopetal flow with monophasic waveform. Gallbladder: Normally distended gallbladder. No wall thickening. Increased echogenicity within the ga llbladder lumen. May represent sludge. There is no shadowing. No color Doppler was submitted. CBD: 0.5 cm Pancreas: Poorly visualized. Right kidney: 12.4 cm in length. Normal size and echogenicity. No hydronephrosis or mass. Aorta and IVC: Mild atherosclerosis aorta. Mildly dilated IVC. There is a very small amount of free fluid in the abdomen and more since pouch and a very small RIGHT pleural effusion. US/US abdomen limited [id number] IMPRESSION: 1. Nonshadowing increased echogenic foci within the gallbladder. Suspect this is probably sludge within the gallbladder. No wall thickening. 2. No bile duct dilatation. 3. Very tiny amount of fluid in Morison's pouch and a very small RIGHT pleural effusion.
--- NOTE | 2021-03-24 09:15 | PC.CHAP ---
Pastoral Care Encounter/Spiritual Assessment Type of Contact [] Declined surveillance supervisor visit [] Patient/Family/Request visit [] Outpatient visit [] Follow-up visit [] Physician referral [] Code/Alert [x] Routine visit [] Staff referral [] Actively dying [] Patient sleeping [x] Family support [] [] Out of room [] Palliative care [] [] Receiving care in room [] Pre-surgical visit [] Trauma [] Long length of stay [x] ICU visit [x] Other: patient setting up in bed... had breakfast.. had prayer outside room Relational/Emotional Strength [] Patient feels connected with others/family/visitors/staff [] Distress [] Loneliness/isolation [] Abandonment Spirituality of Patient [] Person of Nora [] Attends Jew of their Nora [] Believes in Prayer [] Reads Bible or Judaism materials [] There are Spiritual issues to be addressed Robotics Application Engineer Interventions [x] Prayer [] Active listening [] Non-anxious presence [] Spiritual/emotional support [] Crisis/trauma care [] Spiritual counseling [] Bereavement support [] Provided bereavement packet [] Provided Bible/devotional materials [] Provided toy/stuffed animal, coloring book to patient or family member [] Provided Communion [] Anointing/[place] [] Salvation [x] Completed spiritual assessment [] Other: Impact on Illness or Injury [] Angry [] Fearful [] Anxious [] Often cries [] Exhaustion [] Unable to work [] Unable to attend nondenominational [] Unable to walk/stand [] Unable to read [] Unable to drive [] Unable to eat/drink [] Unable to sleep [] Unable to be with family [] Patient intubated [] Other: Summary Time spent with patient
[2021-03-24] MEDS: aspirin 81 mg EC Tablet PO (09:33)
[2021-03-24] MEDS: amiodarone 200 mg Tablet 400 MG PO ×2 (09:33→17:49)
[2021-03-24] MEDS: benzonatate 100 mg Capsule PO ×3 (09:33→21:30)
[2021-03-24] MEDS: losartan 50 mg Tablet 25 MG PO (09:33)
[2021-03-24] MEDS: clopidogrel 75 mg Tablet PO (15:45)
--- NOTE | 2021-03-24 17:08 | PM.PN ---
Subjective Subjective: Interval history: He is doing well. Maintaining oxygen now well on room air. Denies chest pain or pressure. No pain at ICD pocket. Dressing change today. Tolerating oral intake. Vitals/I&O/Wt Last Vital Signs Temp 98.4 F 03/24/21 13:00 Pulse 78 03/24/21 14:45 Resp 19 H 03/24/21 13:00 BP 94/69 03/24/21 13:00 Pulse Ox 96 03/24/21 13:00 03/24/21 03/24/21 03/24/21 06:59 14:59 22:59 Intake Total 120 / 1445.208 360 / 360 Output Total 600 / 1450 400 / 400 Balance -480 / -4.792 -40 / -40 Physical Exam Narrative: EXAM NARRATIVE: at bedside. Const: COMMON NORMALS: no acute distress, patient oriented x3 and alert GENERAL APPEARANCE: cooperative and comfortable ORIENTATION/CONSCIOUSNESS: Yes awake HENMT: COMMON NORMALS: oropharynx normal Neck/C-Spine: COMMON NORMALS: no JVD Resp: COMMON NORMALS: normal respiratory effort and clear to auscultation bilaterally EFFORT & INSPECTION: Yes able to speak in complete sentences AUSCULTATION: clear to auscultation bilaterally Cardio: COMMON NORMALS: no JVD, regular rhythm, S1 normal heart sound present, S2 normal heart sound present and No murmurs present (Cardio) RHYTHM: regular rhythm HEART SOUNDS: S1 normal heart sound present and S2 normal heart sound present GI: COMMON NORMALS: Normal to inspection, nondistended, normoactive bowel sounds present, Soft to palpation and non-tender PALPATION: Yes Soft to palpation Extremity: COMMON NORMALS: no joint enlargement and no pedal edema OTHER: Swelling R bulmaro-medial forearm, distal bicep after IV infiltration Neuro: COMMON NORMALS: patient oriented x3 and moves all extremities SENSORIUM/ORIENTATION: Yes alert Skin: COMMON NORMALS: no rashes or lesions noted GENERAL SKIN EXAM: no rashes or lesions noted Urinary Catheter Management^: Razo: Cath Placed During This Visit: yes, but has since been removed by the nurse Reason for Continuing Indwelling Catheter: Accurate Measurement of Urinary Output in Critically Ill Patients Urinary Catheter Date of Insertion: 03/22/21 Urinary Catheter Time of Insertion: 03:39 Date Urinary Catheter Removed: 03/24/21 Time Urinary Catheter Discontinued: 05:28 Data : 03/24/21 03:00 03/24/21 03:00 A&P Assessment and plan (1) Ventricular fibrillation: Status post AICD placement 03/23. Dressing changed today. Doing well. No issues following extubation. Weaning down to room air. Weaned off pressors. Weaning off dobutamine. Transition to p.o. amiodarone. Weaned off lidocaine. Cardiology would like him started on anticoagulation given quite significantly diminished ejection fraction, ventricular fibrillation, risk of developing intracardiac thrombus. Discussed with cardiothoracic surgery, okay to restart Plavix, has received aspirin today, to discontinue aspirin from tomorrow and start Eliquis. Platelets are better, but monitor. Status: Acute (2) Cardiogenic shock: Appears resolved. Wean off dobutamine, transfer to [facility]. Status: Acute (3) ST elevation myocardial infarction (STEMI): Status post revascularization to OM1. Resume Plavix, stop aspirin after today, start Eliquis. Platelets are better, but monitor. Status: Acute Qualifiers: Involved coronary artery: LAD coronary artery Qualified Code(s): I21.02 - ST elevation (STEMI) myocardial infarction involving left anterior descending coronary artery (4) SANAM (acute kidney injury): Fluctuating creatinine, overall improved compared to admission. Monitor renal function, I&O. Status: Acute (5) HFrEF (heart failure with reduced ejection fraction): Status: Acute (6) Hyperkalemia: Status: Acute (7) High anion gap metabolic acidosis: Status: Acute (8) Shock liver: Status: Acute (9) Transaminitis: Continue to transaminitis, but also with alk phos and T bili elevation obtained right groin ultrasound with noted nonshadowing increased echogenic foci within the gallbladder, suspected for complete sludge. No wall thickening. No bile duct dilation. Status: Acute (10) Blue toes: Improving. Most likely secondary to cardiogenic shock versus pressor requirement. Lower limb arterial Dopplers appreciated without any acute occlusion. Discussed with him monitoring for continued improvement, if worsening seek medical attention immediately. Otherwise continue to follow-up for optimization of management of cardiovascular disease. Status: Acute (11) Thrombocytopenia: With improvement, recheck level. Status: Acute Additional A&P Information Infiltrated IV: Right forearm while increasing amiodarone on Monday. Swelling gradually decreasing. Elevate arm. Monitor. Hypomagnesemia: Replaced Fever: 99.9F on 03/18. COVID-19 PCR negative. Less likely infectious. Blood cultures so far negative. Attestations Medical Necessity Statement*: Continue admission for assessment management following V. fib, status post ICD implantation, weaning off dobutamine following cardiogenic shock, optimization of CAD medication regimen, initiation of anticoagulation due to elevated risk of intracardiac thrombus. Coding Level of Care Code Acute [employer] Officer for [facility] Fwd Exam Comprehensive Diagnoses Ventricular fibrillation I49.[address] elevation myocardial infarction (STEMI) I21.02 Involved coronary artery: LAD coronary artery SANAM (acute kidney injury) N17.9 HFrEF (heart failure with reduced ejection fraction) I50.20 Hyperkalemia E87.5 High anion gap metabolic acidosis E87.2 Shock liver K72.00 Transaminitis R74.01 Blue toes R23.0 Thrombocytopenia D69.6
--- NOTE | 2021-03-24 18:06 | PC.NURSE ---
Wasted all remaining unused gtts left in room: Fentanyl 94.4 ml, Versed 87.1 ml, Propofol nearly full bottle, Phenylephrine 74.5, Lidocaine 230.5, and Dobutamine. Witnessed by Iliana Gupta Rn.. For exacting amounts of wastes see MAR.
--- NOTE | 2021-03-24 18:10 | PC.NURSE ---
Remaining Amiodarone gtt wasted, see MAR for amounts.
--- NOTE | 2021-03-24 18:27 | P.PN_ITS ---
Subjective Subjective: Interval history: The patient is feeling okay. No chest pain or chest tightness. No recurrence of ventricular tachycardia or fibrillation. He is still on Dobutrex 2.5 mics per KG per minute. Systolic blood pressure is in the 90s. Medications: Reviewed: Yes Medication Review Details: Current Medications Acetaminophen (Acetaminophen 325 Mg Tablet) 650 mg PO Q6H PRN PRN Reason: MILD PAIN Last Admin: 03/20/21 12:39 Dose: 650 mg Documented by: Al Hydrox/Mg Hydrox/Simethicone (Zeln-Zwl-Nsltmnblu-Jose 30 Ml Udc) 30 ml PO Q15M PRN PRN Reason: INDIGESTION Last Admin: 03/16/21 10:52 Dose: 30 ml Documented by: Amiodarone HCl (Amiodarone 200 Mg Tablet) 400 mg PO BID [facility] Last Admin: 03/24/21 17:49 Dose: 400 mg Documented by: Apixaban (Apixaban 5 Mg Tablet) 5 mg PO BID@0900,2100 [facility] Atorvastatin Calcium (Atorvastatin 40 Mg Tablet) 80 mg PO BEDTIME [facility] Last Admin: 03/23/21 20:40 Dose: 80 mg Documented by: Atropine Sulfate (Atropine 1 Mg/Ml Sdv 1 Ml) 0.5 mg IVP PRN PRN PRN Reason: Symptomatic bradycardia Benzonatate (Benzonatate 100 Mg Capsule) 100 mg PO TID [facility] Last Admin: 03/24/21 17:49 Dose: 100 mg Documented by: Clopidogrel Bisulfate (Clopidogrel 75 Mg Tablet) 75 mg PO DAILY [facility] Last Admin: 03/24/21 15:45 Dose: 75 mg Documented by: Fluticasone Propionate (Fluticasone Nasal [place] 16gm Btl) 1 spray NASAL DAILY [facility] Last Admin: 03/24/21 09:37 Dose: Not Given Documented by: Guaifenesin/Codeine Phosphate (Guaifenesin-Codeine Udc 10 Ml) 5 ml PO Q6H PRN PRN Reason: COUGH Dobutamine HCl/Dextrose (Dobutamine Drip) 500 mg in 250 mls @ 0 mls/hr IV .Q0M [facility]; Protocol Last Titration: 03/24/21 14:00 Dose: Infused Documented by: Losartan Potassium (Losartan 50 Mg Tablet) 25 mg PO DAILY [facility] Last Admin: 03/24/21 09:33 Dose: 25 mg Documented by: Magnesium Hydroxide (Magnesium Hydroxide 30 Ml Udc) 30 ml PO DAILY PRN PRN Reason: CONSTIPATION Metoclopramide HCl (Metoclopramide 5 Mg/Ml Sdv 2 Ml) 5 mg IVP Q6H PRN PRN Reason: NAUSEA AND VOMITING Last Admin: 03/18/21 17:04 Dose: 5 mg Documented by: Naloxone HCl (Naloxone 0.4 Mg/Ml Sdv) 0.1 mg IVP Q2M PRN PRN Reason: RESPIRATORY RATE < 8/MIN Nitroglycerin (Nitroglycerin 0.4 Mg Sublingual Tablet) 0.4 mg SUBLINGUAL Q5M PRN PRN Reason: CHEST PAIN Phenylephrine HCl (Phenylephrine 0.5% Nasal 15 Ml Btl) 1 spray NASAL Q4H PRN PRN Reason: Nose bleed Last Admin: 03/20/21 13:23 Dose: 1 dose Documented by: Senna (Sennosides 8.6 Mg Tablet) 17.2 mg PO BEDTIME JAYJAY Last Admin: 03/23/21 20:40 Dose: 17.2 mg Documented by: Vitals/I&O/Wt Last Vital Signs Temp 98.4 F 03/24/21 13:00 Pulse 78 03/24/21 14:45 Resp 19 H 03/24/21 13:00 BP 94/69 03/24/21 13:00 Pulse Ox 96 03/24/21 13:00 03/24/21 03/24/21 03/24/21 06:59 14:59 22:59 Intake Total 120 / 1445.208 490 / 490 0 / 490 Output Total 600 / 1450 400 / 400 Balance -480 / -4.792 90 / 90 0 / 90 Physical Exam Narrative: EXAM NARRATIVE: GENERAL: The patient is currently alert and oriented x3 HEENT: No significant pallor, icterus or lymphadenopathy.Oral cavity: There are no mucous membrane lesions. NECK: Trachea appears to be central. No masses noted. No JVD or thyromegaly appreciated. RESPIRATORY: Chest is symmetrical. No intercostals muscle retraction or any accessory muscle activation. There is no chest wall tenderness. Breath sounds are heard bilaterally. No rales or rhonchi heard. No evidence of any consolidation. BREASTS: Deferred. HEART: The heart sounds are normal. No S3 or S4. Short systolic murmur in the left sternal border. No diastolic murmurs. No pericardial rub ABDOMEN: No vessel pulsations or distention. No tenderness. No organomegaly appreciated. Bowel sounds are normally heard. : Deferred. RECTAL: Deferred. LYMPHATIC: No lymphadenopathy noted in the neck or groin. EXTREMITIES: No edema . The peripheral cyanosis in the toes has significantly improved MUSCULOSKELETAL: No acute joint deformities or swelling SKIN: There are no significant rashes or ecchymosis NEUROPSYCHIATRIC: No focal motor deficits Urinary Catheter Management^: Razo: Cath Placed During This Visit: yes, but has since been removed by the nurse Reason for Continuing Indwelling Catheter: Accurate Measurement of Urinary Output in Critically Ill Patients Urinary Catheter Date of Insertion: 03/22/21 Urinary Catheter Time of Insertion: 03:39 Date Urinary Catheter Removed: 03/24/21 Time Urinary Catheter Discontinued: 05:28 Data : 03/24/21 03:00 03/24/21 03:00 Other Labs: Laboratory Last Values WBC 9.4 10^3/uL (4.0-10.0) 03/24/21 03:00 Corrected WBC Cancelled 03/17/21 07:26 RBC 3.98 10^6/uL (4.1-5.3) L 03/24/21 03:00 Hgb 11.9 g/dL (11.7-16.6) 03/24/21 03:00 Hct 36.0 % (42.0-52.0) L 03/24/21 03:00 MCV 90.5 fl (80-94) 03/24/21 03:00 MCH 29.9 pg (28.0-34.0) 03/24/21 03:00 MCHC 33.1 g/dL (30.0-36.0) 03/24/21 03:00 RDW 14.5 % (12.1-15.1) 03/24/21 03:00 Plt Count 101 10^3/cmm (130-400) L 03/24/21 03:00 MPV 11.9 fL (7.4-10.4) H 03/24/21 03:00 Gran % Cancelled 03/17/21 07:26 Neut % (Auto) 83.2 % 03/24/21 03:00 Lymph % (Auto) 7.5 % 03/24/21 03:00 [place] % (Auto) 7.9 % 03/24/21 03:00 Eos % (Auto) 0.7 % 03/24/21 03:00 Baso % (Auto) 0.2 % 03/24/21 03:00 Neut # (Auto) 7.83 10^3/uL (1.8-7.7) H 03/24/21 03:00 Lymph # (Auto) 0.7 10^3/uL (0.8-4.8) L 03/24/21 03:00 [place] # (Auto) 0.7 10^3/uL (0.2-0.9) 03/24/21 03:00 Eos # (Auto) 0.1 10^3/uL (0.0-0.8) 03/24/21 03:00 Baso # (Auto) 0.0 10^3/uL (0.0-0.1) 03/24/21 03:00 Absolute Gran (auto) Cancelled 03/17/21 07:26 Nucleated RBC % (auto) 0 % 03/24/21 03:00 Nucleated RBCs # 0.0 /100WBC 03/24/21 03:00 PT 18.90 SECONDS (12.1-14.9) H 03/15/21 17:40 INR 1.55 (0.8-1.2) H 03/15/21 17:40 APTT 31.0 SECONDS (23.9-36.7) 03/15/21 20:35 Specimen Type Arterial 03/22/21 03:43 Sample Site Radial, right 03/22/21 03:43 ABG pH 7.38 (7.35-7.45) 03/22/21 03:43 ABG pCO2 39.2 mmHg (35-45) 03/22/21 03:43 ABG pO2 92.3 mmHg (80.0-100.0) 03/22/21 03:43 ABG HCO3 23.0 mmol/L (22-26) 03/22/21 03:43 ABG O2 Saturation 97.1 03/22/21 03:43 ABG Base Excess -2.0 mmol/L (-2.0-2.0) 03/22/21 03:43 Van Test Pos 03/22/21 03:43 A-a O2 Gradient 14.4 mmHg (5-10) H 03/22/21 03:43 Hematocrit 43.4 % (42-52) 03/22/21 03:43 Hgb O2 Saturation 95.2 % (95-100) 03/22/21 03:43 Carboxyhemoglobin 0.9 %THgb (0.4-20.1) 03/22/21 03:43 Methemoglobin 1.1 % (0.4-1.5) 03/22/21 03:43 Total Hemoglobin 14.2 g/dL (14-18) 03/22/21 03:43 Sodium 132.0 mmol/L (131-143) 03/22/21 03:43 Potassium 3.7 mmol/L (3.5-5.0) 03/22/21 03:43 Glucose 142.0 mg/dL (70-115) H 03/22/21 03:43 Ionized Calcium 1.2 mmol/L (1.1-1.4) 03/22/21 03:43 O2 Delivery Device Vent 03/22/21 03:43 FiO2 35.0 % 03/22/21 03:43 Tidal Volume 0.55 03/22/21 03:43 PEEP 5.0 cmH20 03/22/21 03:43 Die Hardener ID ellpe 03/22/21 03:43 Sodium 130 mmol/L (136-145) L 03/24/21 03:00 Potassium 4.5 mmol/L (3.5-5.1) 03/24/21 03:00 Chloride 99 mmol/L (98-107) 03/24/21 03:00 Carbon Dioxide 21 mmol/L (22-29) L 03/24/21 03:00 Anion Gap 14.5 (5-19) 03/24/21 03:00 BUN 28 mg/dL (6-20) H 03/24/21 03:00 Creatinine 1.1 mg/dL (0.7-1.2) 03/24/21 03:00 GFR Calculation 69.0 mL/min (90-130) L 03/24/21 03:00 Glucose 114 mg/dL (65-115) 03/24/21 03:00 POC Glucose 108 mg/dL (70-110) 03/22/21 01:07 Estimat Average Glucose 120 03/17/21 07:26 Hemoglobin A1c 5.8 % (4.0-6.0) 03/17/21 07:26 Calculated Osmolality 276 mOsm/kg (285-295) L 03/24/21 03:00 Lactic Acid 7.9 mmol/L (0.5-2.2) H* 03/16/21 18:33 Lactic Acid (Sepsis) 6.0 mmol/L (0.5-2.2) H* 03/16/21 21:19 Lactate 3.2 mmol/L (0.5-2.2) H 03/18/21 07:30 Uric Acid 8.9 mg/dL (3.4-7.0) H 03/16/21 05:00 Calcium 7.2 mg/dL (8.5-10.5) L 03/24/21 03:00 Phosphorus 2.8 mg/dL (2.5-4.5) 03/18/21 13:41 Magnesium 2.0 mg/dL (1.7-2.3) 03/24/21 03:00 Iron 59 ug/dL (59-158) 03/16/21 15:32 TIBC 292 mcg/dl 03/16/21 15:32 % Saturation 20.2 % (20-50) 03/16/21 15:32 Unsat Iron Binding 233 ug/dL (112-347) 03/16/21 15:32 Total Bilirubin 1.6 mg/dL (0.15-1.2) H 03/24/21 03:00 AST 101 U/L (0-40) H 03/24/21 03:00 ALT 374 U/L (0-41) H 03/24/21 03:00 Alkaline Phosphatase 171 IU/L (40-130) H 03/24/21 03:00 Creatine Kinase 176 U/L (39-308) 03/15/21 13:41 CK-MB (CK-2) 5.9 ng/mL (0-10.4) 03/15/21 13:41 CK-MB (CK-2) Rel Index % (0.0-5.3) 03/15/21 13:41 Troponin T Baseline 3308 ng/L (0-15) H* 03/15/21 13:41 Troponin T 120 Minute 3230 ng/L (0-15) H 03/15/21 17:40 Delta Troponin T -78 ABS# (0-10) L 03/15/21 17:40 Troponin T Hi Sens 6Hr 4082 ng/L (0-15) H 03/15/21 18:47 Troponin T Hi Sens 6Hr Delta 774 ng/L (0-12) H* 03/15/21 18:47 Total Protein 4.9 g/dL (6.6-8.7) L 03/24/21 03:00 Albumin 2.3 g/dL (3.5-5.2) L 03/24/21 03:00 Globulin 2.6 g/dL (1.3-4.6) 03/24/21 03:00 TSH 2.65 uIU/mL (0.27-4.20) 03/16/21 05:00 Urine Color Yellow (Yellow) 03/16/21 23:30 Urine Appearance Hazy (CLEAR) A 03/16/21 23:30 Urine pH 5 (5-7) 03/16/21 23:30 Ur Specific [place] 1.020 (1.005-1.030) 03/16/21 23:30 Urine Protein 3+ (Negative) H 03/16/21 23:30 Urine Glucose (UA) Trace (Normal) H 03/16/21 23:30 Urine Ketones 1+ (Negative) H 03/16/21 23:30 Urine Blood 3+ (Negative) H 03/16/21 23:30 Urine Nitrate Negative (Negative) 03/16/21 23:30 Urine Bilirubin 1+ (Negative) H 03/16/21 23:30 Urine Urobilinogen 4 mg/dL (Negative) H 03/16/21 23:30 Ur Leukocyte Esterase Trace (Negative) H 03/16/21 23:30 Urine RBC 0-4 /hpf (0-2) H 03/16/21 23:30 Urine WBC 0-4 /hpf (0-5) H 03/16/21 23:30 Ur Eosinophil Smear 0 (0-0) 03/16/21 23:30 Ur Squamous Epith Cells 0-4 /hpf (0-5) H 03/16/21 23:30 Amorphous Sediment 3+ /hpf 03/16/21 23:30 Urine Bacteria 2+ /hpf (NONE) H 03/16/21 23:30 Urine Mucus 2+ /hpf 03/16/21 23:30 Urine Sperm 1+ /hpf 03/16/21 23:30 Urine Eosinophils No eosinophils seen 03/16/21 23:30 Ur Random Creatinine 132 mg/dL (20-320) 03/16/21 23:30 Ur Random Albumin 59 % 03/16/21 23:30 Ur Random Microalbumin 92 ug/dL (0-20) H 03/16/21 23:30 U Random Total Protein 225 mg/dL (5-25) H 03/16/21 23:30 Ur Random Sodium 18 mmol/L 03/16/21 23:30 Ur Random Potassium 75 mmol/L 03/16/21 23:30 Ur Random Chloride 11 mmol/L 03/16/21 23:30 Urine Creatinine 141 mg/dL (39-259) 03/16/21 23:30 Microalb/Creat Ratio 652 mg/dL (0-20) H 03/16/21 23:30 Protein/Creatinin Ratio 1705 mg/g creat (22-128) H 03/16/21 23:30 Protein/Creat Ratio 24h 1.705 (0.022-0.128) H 03/16/21 23:30 U Random y-8-Ktiqvsid % 2 % 03/16/21 23:30 U Random k-1-Cukttoup % 7 % 03/16/21 23:30 U Random Beta Globulin 20 % 03/16/21 23:30 U Random Gamma Glob 12 % 03/16/21 23:30 U Abnormal Prot Band 1 Not Reportable 03/16/21 23:30 U Abnormal Prot Band 2 Not Reportable 03/16/21 23:30 U Abnormal Prot Band 3 Not Reportable 03/16/21 23:30 Urine PEP Interpret See note 03/16/21 23:30 Coronavirus 229E (PCR) Not detected (NOT DETECT) 03/19/21 12:20 Hepatitis A IgM Ab Non-reactive (Nonreactive) 03/16/21 18:33 Hep Bs Antigen Non-reactive (Nonreactive) 03/16/21 18:33 Hep Bs Antibody 6.5 (11.5-1000) L 03/16/21 18:33 Hep B Core Total Ab Non-reactive (Nonreactive) 03/16/21 18:33 Hepatitis C Antibody Non-reactive (Nonreactive) 03/16/21 18:33 SARS-CoV-2 (PCR) Not detected (NOT DETECT) 03/19/21 12:20 SARS-CoV-2 Ag (Rapid) Negative (Negative) 03/19/21 10:00 A&P Assessment and plan (1) LV (left ventricular) mural thrombus: I reviewed the patient's echocardiogram from 03/15/2021 and 03/18/2021. He was found to have an organized LV apical thrombus. Patient requires long- term oral anticoagulation with warfarin for further management of this condition. I may start him on Lovenox bridging. May start with the Coumadin 5 mg today. Aspirin may be discontinued. Status: Acute (2) Ventricular fibrillation: Patient status post ICD implantation. No recurrence of ventricular fibrillation. Was started on amiodarone 400 mg p.o. twice daily. Status: Acute (3) Cardiogenic shock: Patient is alert functions continue to improve. The liver and the kidney functions are returning back to baseline. Status: Acute (4) HFrEF (heart failure with reduced ejection fraction): Left ventricular ejection fraction was around 15%. We will continue to optimize his medications. May start him on a low-dose of losartan, if the blood pressure tolerate. May taper off the Dobutrex, if the systolic blood pressure stays around 90. Status: Acute (5) ST elevation myocardial infarction (STEMI): He may be continued on the Plavix. Consider starting on Coumadin with Lovenox bridging, may discontinue the aspirin Status: Acute Qualifiers: Involved coronary artery: LAD coronary artery Qualified Code(s): I21.02 - ST elevation (STEMI) myocardial infarction involving left anterior descending coronary artery (6) Shock liver: The liver function continues to improve. May continue on the current treatment measures. Status: Acute Additional A&P Information Based on the clinical progress, further recommendations will be made. 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
--- NOTE | 2021-03-24 19:00 | PC.NURSE ---
Shift Note: Pt rested in bed throughout shift. Pt in good humour. Family at bedside throughout shift. Dobutamine stopped around 1400, pt tolerating well. SBP have been 80-100, but MAPs have been 67 or greater. Right arm still reddened with a hardened area from previous IV infiltration. Family massaging area, pt states it helps it feels better. Right groin CVL patent and easy to flush. Dressing on upper left chest C,D,and I. Pt has had frequent voids of 100ml at a time. No ectopy noted on monitor. No complaints of chest pain. Frequent safety and comfort rounds continue. Orders and/or nursing care completed as indicated. Patient monitored for response to intervention and treatment(s). Education provided includes Dobutamine, Plavix, Lovenox, Warfarin, CVL care and infection prevention]. Patient and/or player services representative verbalized understanding of plan of care, progress and medications.. Will continue to monitor.
[2021-03-24 19:56] LABS: INR 1.41 (0.8-1.2)
[2021-03-24] MEDS: enoxaparin 100 mg/mL Syringe SUBCUT (19:58)
[2021-03-24] MEDS: warfarin 5 mg Tablet PO (19:58)
[2021-03-24] MEDS: sennosides 8.6 mg Tablet 17.2 MG PO (21:30)
[2021-03-24] MEDS: atorvastatin 40 mg Tablet 80 MG PO (21:30)
[2021-03-25] VITALS (25 sets, daily range): BP systolic 81–111; BP diastolic 49–80; PULSE 77–96; RESP 14–23; TEMP 36.8–36.9; O2SAT 79–99
[2021-03-25 05:08] LABS: Basophils % 0.2 %; Eosinophils # 0.1 10^3/uL (0.0-0.8); Hematocrit 39.1 % (42.0-52.0); Hemoglobin 12.7 g/dL (11.7-16.6); Lymphocytes # 1.1 10^3/uL (0.8-4.8); Lymphocytes % 12.9 %; Mean Corpuscular HGB Conc 32.5 g/dL (30.0-36.0); Mean Corpuscular Hemoglobin 29.9 pg (28.0-34.0); Mean Platelet Volume 11.3 fL (7.4-10.4); Monocytes # 0.6 10^3/uL (0.2-0.9); Monocytes % 7.8 %; Neutrophils # 6.28 10^3/uL (1.8-7.7); Neutrophils % 77.5 %; Nucleated Red Blood Cells % 0 %; Platelet Count 145 10^3/cmm (130-400); Red Blood Count 4.25 10^6/uL (4.1-5.3); Red Cell Distribution Width 14.6 % (12.1-15.1); White Blood Count 8.1 10^3/uL (4.0-10.0)
[2021-03-25 05:34] LABS: Alanine Aminotransferase 278 U/L (0-41); Albumin Level 2.2 g/dL (3.5-5.2); Alkaline Phosphatase 179 IU/L (40-130); Anion Gap 16.2 (5-19); Aspartate Amino Transferase 184 U/L (0-40); Blood Urea Nitrogen 25 mg/dL (6-20); Calcium 8.2 mg/dL (8.5-10.5); Carbon Dioxide 20 mmol/L (22-29); Chloride 99 mmol/L (98-107); Globulin 2.8 g/dL (1.3-4.6); Glucose 98 mg/dL (65-115); Osmolality Calculated 276 mOsm/kg (285-295); Potassium 4.2 mmol/L (3.5-5.1); Sodium 131 mmol/L (136-145); Total Bilirubin 1.6 mg/dL (0.15-1.2)
[2021-03-25] MEDS: enoxaparin 100 mg/mL Syringe SUBCUT ×2 (06:00→18:39)
[2021-03-25 06:25] LABS: INR 1.32 (0.8-1.2)
[2021-03-25] MEDS: losartan 50 mg Tablet 25 MG PO (07:59)
[2021-03-25] MEDS: clopidogrel 75 mg Tablet PO (07:59)
[2021-03-25] MEDS: benzonatate 100 mg Capsule PO ×3 (07:59→21:04)
[2021-03-25] MEDS: amiodarone 200 mg Tablet 400 MG PO ×2 (07:59→18:40)
[2021-03-25] MEDS: fluticasone nasal spray 16gm Btl 1 SPRAY NASAL (08:07)
--- NOTE | 2021-03-25 13:04 | PM.PN ---
Subjective Subjective: Interval history: He is without change states doing okay. Denies shortness of breath, chest pain or pressure. No nausea vomiting or diarrhea. Vitals/I&O/Wt Last Vital Signs Temp 98.4 F 03/24/21 13:00 Pulse 96 03/25/21 12:00 Resp 23 H 03/25/21 12:00 BP 95/72 03/25/21 12:00 Pulse Ox 98 03/25/21 12:00 03/24/21 03/25/21 03/25/21 22:59 06:59 14:59 Intake Total 750 / 1240 240 / 240 Output Total 200 / 600 425 / 1025 175 / 175 Balance 550 / 640 -425 / 215 65 / 65 Physical Exam Narrative: EXAM NARRATIVE: at bedside. Const: COMMON NORMALS: no acute distress, patient oriented x3 and alert GENERAL APPEARANCE: cooperative and comfortable ORIENTATION/CONSCIOUSNESS: Yes awake HENMT: COMMON NORMALS: oropharynx normal Neck/C-Spine: COMMON NORMALS: no JVD Resp: COMMON NORMALS: normal respiratory effort and clear to auscultation bilaterally EFFORT & INSPECTION: Yes able to speak in complete sentences AUSCULTATION: clear to auscultation bilaterally Cardio: COMMON NORMALS: no JVD, regular rhythm, S1 normal heart sound present, S2 normal heart sound present and No murmurs present (Cardio) RHYTHM: regular rhythm HEART SOUNDS: S1 normal heart sound present and S2 normal heart sound present GI: COMMON NORMALS: Normal to inspection, nondistended, normoactive bowel sounds present, Soft to palpation and non-tender PALPATION: Yes Soft to palpation Extremity: COMMON NORMALS: no joint enlargement GENERAL: Yes edema (1+ ankle edema BL) OTHER: Swelling R bulmaro-medial forearm, distal bicep after IV infiltration Neuro: COMMON NORMALS: patient oriented x3 and moves all extremities SENSORIUM/ORIENTATION: Yes alert Skin: COMMON NORMALS: no rashes or lesions noted GENERAL SKIN EXAM: no rashes or lesions noted Urinary Catheter Management^: Razo: Cath Placed During This Visit: yes, but has since been removed by the nurse Reason for Continuing Indwelling Catheter: Accurate Measurement of Urinary Output in Critically Ill Patients Urinary Catheter Date of Insertion: 03/22/21 Urinary Catheter Time of Insertion: 03:39 Date Urinary Catheter Removed: 03/24/21 Time Urinary Catheter Discontinued: 05:28 Data : 03/25/21 04:36 03/25/21 04:36 A&P Assessment and plan (1) LV (left ventricular) mural thrombus: Noted on review of echocardiogram images. Discussed with patient. Last night he was started by cardiology on Lovenox bridge with Coumadin. Follow INR. Discussed with him concerning risk of embolic disease, including CVA. verbalized understanding. Discussed obtaining target INR. So far condition unchanged, he is subjectively doing okay. Blood pressure soft, but systolic blood pressures above 90s. Transfer to cardiac stepdown, continue care with initiation of anticoagulation and monitoring. Status: Acute (2) Ventricular fibrillation: Doing well status post AICD placement 03/23. Continue oral amiodarone. No issues following extubation. Weaning down to room air. Weaned off pressors. Weaning off dobutamine. Transition to p.o. amiodarone. Weaned off lidocaine. Cardiology would like him started on anticoagulation given quite significantly diminished ejection fraction, ventricular fibrillation, risk of developing intracardiac thrombus. Discussed with cardiothoracic surgery, okay to restart Plavix, has received aspirin today, to discontinue aspirin from tomorrow and start Eliquis. Platelets are better, but monitor. Status: Acute (3) Cardiogenic shock: Appears resolved. Weaned off dobutamine, transfer to [facility]. Status: Acute (4) ST elevation myocardial infarction (STEMI): Status post revascularization to OM1. Resume Plavix, stop aspirin after today, start Eliquis. Platelets are better, but monitor. Continue Plavix, statin. Status: Acute Qualifiers: Involved coronary artery: LAD coronary artery Qualified Code(s): I21.02 - ST elevation (STEMI) myocardial infarction involving left anterior descending coronary artery (5) SANAM (acute kidney injury): Improved. Monitor renal function, I&O. Status: Acute (6) HFrEF (heart failure with reduced ejection fraction): Cardiology also started him on losartan 25 mg daily. Status: Acute (7) Hyperkalemia: Status: Acute (8) High anion gap metabolic acidosis: Status: Acute (9) Shock liver: Gradual improvement. Status: Acute (10) Transaminitis: Continue to transaminitis, but also with alk phos and T bili elevation obtained right groin ultrasound with noted nonshadowing increased echogenic foci within the gallbladder, suspected for complete sludge. No wall thickening. No bile duct dilation. Secondary to shock liver as above. Status: Acute (11) Blue toes: Improving. Most likely secondary to cardiogenic shock versus pressor requirement. Lower limb arterial Dopplers appreciated without any acute occlusion. Discussed with him monitoring for continued improvement, if worsening seek medical attention immediately. Otherwise continue to follow-up for optimization of management of cardiovascular disease. Status: Acute (12) Thrombocytopenia: Improving. Less likely HIT. Status: Acute Additional A&P Information Infiltrated IV: Right forearm while increasing amiodarone on Monday. Swelling gradually decreasing. Elevate arm. Monitor. Hypomagnesemia: Replaced Fever: 99.9F on 03/18. Without recurrence. COVID-19 PCR negative. Less likely infectious. Blood cultures so far negative. Attestations Medical Necessity Statement*: Continue admission for management of LV thrombus, initiation of anticoagulation, additional monitoring following ventricular fibrillation requiring AICD implantation, with severe cardiomyopathy, improved cardiogenic shock. Coding Level of Care Code Acute [employer] Services Program Associate for [facility] Fwd Exam Comprehensive Diagnoses LV (left ventricular) mural thrombus I51.3 Ventricular fibrillation I49.[address] elevation myocardial infarction (STEMI) I21.02 Involved coronary artery: LAD coronary artery SANAM (acute kidney injury) N17.9 HFrEF (heart failure with reduced ejection fraction) I50.20 Hyperkalemia E87.5 High anion gap metabolic acidosis E87.2 Shock liver K72.00 Transaminitis R74.01 Blue toes R23.0 Thrombocytopenia D69.6
[2021-03-25] MEDS: warfarin 5 mg Tablet PO (14:32)
--- NOTE | 2021-03-25 17:59 | PC.NURSE ---
Shift Note Frequent safety and comfort rounds continue. Orders nursing care completed as indicated. Patient participated in physical therapy today and walked around nurses station. Patient noted to have gotten up serval time in attempt to have a bowel movement. This nurse offered patient a PRN medication to assist with moving of bowels, patient declined. Around 1500 patient became hypotensive denying chest pain, and nausea. Pt stated, I feel just fine. - see vitals. This nurse laid patient flat in bed and called . Orders to start Levophed and notify defective cigarette slitter. Technical Service Rep called, no answer- this nurse left a message- Still awaiting a call back. Dr. French stopped losartan at this time. Patient monitored for response to intervention and treatments. Education provided include new medications, and frequent position changes. Patient verbalized understanding. Will continue to monitor.
--- NOTE | 2021-03-25 18:08 | PM.PN ---
Subjective Subjective: Interval history: Patient was taken off the Dobutrex in the morning. His systolic blood pressure was hovering around 90s. Later on the blood pressure started dropping and went down into the 80s. So he was started on a Levophed. Currently he is on 2 mics per KG per minute. The systolic blood pressure is in the 90s with a mean arterial pressure of around 70. Medications: Reviewed: Yes Medication Review Details: Current Medications Acetaminophen (Acetaminophen 325 Mg Tablet) 650 mg PO Q6H PRN PRN Reason: MILD PAIN Last Admin: 03/20/21 12:39 Dose: 650 mg Documented by: Al Hydrox/Mg Hydrox/Simethicone (Ebau-Oyi-Mckuvgzjx-Jose 30 Ml Udc) 30 ml PO Q15M PRN PRN Reason: INDIGESTION Last Admin: 03/16/21 10:52 Dose: 30 ml Documented by: Amiodarone HCl (Amiodarone 200 Mg Tablet) 400 mg PO BID [facility] Last Admin: 03/25/21 07:59 Dose: 400 mg Documented by: Atorvastatin Calcium (Atorvastatin 40 Mg Tablet) 80 mg PO BEDTIME [facility] Last Admin: 03/24/21 21:30 Dose: 80 mg Documented by: Atropine Sulfate (Atropine 1 Mg/Ml Sdv 1 Ml) 0.5 mg IVP PRN PRN PRN Reason: Symptomatic bradycardia Benzonatate (Benzonatate 100 Mg Capsule) 100 mg PO TID [facility] Last Admin: 03/25/21 14:32 Dose: 100 mg Documented by: Clopidogrel Bisulfate (Clopidogrel 75 Mg Tablet) 75 mg PO DAILY [facility] Last Admin: 03/25/21 07:59 Dose: 75 mg Documented by: Enoxaparin Sodium (Enoxaparin 100 Mg/Ml Syringe) 100 mg 1 mg/kg (100 mg) SUBCUT Q12H [facility] Last Admin: 03/25/21 06:00 Dose: 100 mg Documented by: Fluticasone Propionate (Fluticasone Nasal [place] 16gm Btl) 1 spray NASAL DAILY [facility] Last Admin: 03/25/21 08:07 Dose: 1 spray Documented by: Guaifenesin/Codeine Phosphate (Guaifenesin-Codeine Udc 10 Ml) 5 ml PO Q6H PRN PRN Reason: COUGH Norepinephrine Bitartrate 4 mg (/ Dextrose) 254 mls @ 0 mls/hr IV .Q0M [facility]; Protocol Last Admin: 03/25/21 14:52 Dose: 2 mcg/min, 7.62 mls/hr Documented by: Magnesium Hydroxide (Magnesium Hydroxide 30 Ml Udc) 30 ml PO DAILY PRN PRN Reason: CONSTIPATION Metoclopramide HCl (Metoclopramide 5 Mg/Ml Sdv 2 Ml) 5 mg IVP Q6H PRN PRN Reason: NAUSEA AND VOMITING Last Admin: 03/18/21 17:04 Dose: 5 mg Documented by: Naloxone HCl (Naloxone 0.4 Mg/Ml Sdv) 0.1 mg IVP Q2M PRN PRN Reason: RESPIRATORY RATE < 8/MIN Nitroglycerin (Nitroglycerin 0.4 Mg Sublingual Tablet) 0.4 mg SUBLINGUAL Q5M PRN PRN Reason: CHEST PAIN Phenylephrine HCl (Phenylephrine 0.5% Nasal 15 Ml Btl) 1 spray NASAL Q4H PRN PRN Reason: Nose bleed Last Admin: 03/20/21 13:23 Dose: 1 dose Documented by: Senna (Sennosides 8.6 Mg Tablet) 17.2 mg PO BEDTIME [facility] Last Admin: 03/24/21 21:30 Dose: 17.2 mg Documented by: Warfarin Sodium (Warfarin 5 Mg Tablet) 5 mg PO DAILY@1400 [facility] Last Admin: 03/25/21 14:32 Dose: 5 mg Documented by: Vitals/I&O/Wt Last Vital Signs Temp 98.5 F 03/25/21 16:00 Pulse 82 03/25/21 16:00 Resp 18 03/25/21 16:00 BP 94/68 03/25/21 16:00 Pulse Ox 99 03/25/21 16:00 03/25/21 03/25/21 03/25/21 06:59 14:59 22:59 Intake Total 720 / 720 Output Total 425 / 1025 175 / 175 Balance -425 / 215 545 / 545 Physical Exam Narrative: EXAM NARRATIVE: GENERAL: The patient is currently alert and oriented x3 HEENT: No significant pallor, icterus or lymphadenopathy.Oral cavity: There are no mucous membrane lesions. NECK: Trachea appears to be central. No masses noted. No JVD or thyromegaly appreciated. RESPIRATORY: Chest is symmetrical. No intercostals muscle retraction or any accessory muscle activation. There is no chest wall tenderness. Breath sounds are heard bilaterally. No rales or rhonchi heard. No evidence of any consolidation. BREASTS: Deferred. HEART: The heart sounds are normal. No S3 or S4. Short systolic murmur in the left sternal border. No diastolic murmurs. No pericardial rub ABDOMEN: No vessel pulsations or distention. No tenderness. No organomegaly appreciated. Bowel sounds are normally heard. : Deferred. RECTAL: Deferred. LYMPHATIC: No lymphadenopathy noted in the neck or groin. EXTREMITIES: No edema . The peripheral cyanosis in the toes has significantly improved MUSCULOSKELETAL: No acute joint deformities or swelling SKIN: There are no significant rashes or ecchymosis NEUROPSYCHIATRIC: No focal motor deficits Urinary Catheter Management^: Razo: Cath Placed During This Visit: yes, but has since been removed by the nurse Reason for Continuing Indwelling Catheter: Accurate Measurement of Urinary Output in Critically Ill Patients Urinary Catheter Date of Insertion: 03/22/21 Urinary Catheter Time of Insertion: 03:39 Date Urinary Catheter Removed: 03/24/21 Time Urinary Catheter Discontinued: 05:28 Data : 03/25/21 04:36 03/25/21 04:36 Other Labs: Laboratory Last Values WBC 8.1 10^3/uL (4.0-10.0) 03/25/21 04:36 Corrected WBC Cancelled 03/17/21 07:26 RBC 4.25 10^6/uL (4.1-5.3) 03/25/21 04:36 Hgb 12.7 g/dL (11.7-16.6) 03/25/21 04:36 Hct 39.1 % (42.0-52.0) L 03/25/21 04:36 MCV 92.0 fl (80-94) 03/25/21 04:36 MCH 29.9 pg (28.0-34.0) 03/25/21 04:36 MCHC 32.5 g/dL (30.0-36.0) 03/25/21 04:36 RDW 14.6 % (12.1-15.1) 03/25/21 04:36 Plt Count 145 10^3/cmm (130-400) D 03/25/21 04:36 MPV 11.3 fL (7.4-10.4) H 03/25/21 04:36 Gran % Cancelled 03/17/21 07:26 Neut % (Auto) 77.5 % 03/25/21 04:36 Lymph % (Auto) 12.9 % 03/25/21 04:36 Placer % (Auto) 7.8 % 03/25/21 04:36 Eos % (Auto) 1.0 % 03/25/21 04:36 Baso % (Auto) 0.2 % 03/25/21 04:36 Neut # (Auto) 6.28 10^3/uL (1.8-7.7) 03/25/21 04:36 Lymph # (Auto) 1.1 10^3/uL (0.8-4.8) 03/25/21 04:36 Placer # (Auto) 0.6 10^3/uL (0.2-0.9) 03/25/21 04:36 Eos # (Auto) 0.1 10^3/uL (0.0-0.8) 03/25/21 04:36 Baso # (Auto) 0.0 10^3/uL (0.0-0.1) 03/25/21 04:36 Absolute Gran (auto) Cancelled 03/17/21 07:26 Nucleated RBC % (auto) 0 % 03/25/21 04:36 Nucleated RBCs # 0.0 /100WBC 03/25/21 04:36 PT 16.80 SECONDS (12.1-14.9) H 03/25/21 04:36 INR 1.32 (0.8-1.2) H 03/25/21 04:36 APTT 31.0 SECONDS (23.9-36.7) 03/15/21 20:35 Specimen Type Arterial 03/22/21 03:43 Sample Site Radial, right 03/22/21 03:43 ABG pH 7.38 (7.35-7.45) 03/22/21 03:43 ABG pCO2 39.2 mmHg (35-45) 03/22/21 03:43 ABG pO2 92.3 mmHg (80.0-100.0) 03/22/21 03:43 ABG HCO3 23.0 mmol/L (22-26) 03/22/21 03:43 ABG O2 Saturation 97.1 03/22/21 03:43 ABG Base Excess -2.0 mmol/L (-2.0-2.0) 03/22/21 03:43 Van Test Pos 03/22/21 03:43 A-a O2 Gradient 14.4 mmHg (5-10) H 03/22/21 03:43 Hematocrit 43.4 % (42-52) 03/22/21 03:43 Hgb O2 Saturation 95.2 % (95-100) 03/22/21 03:43 Carboxyhemoglobin 0.9 %THgb (0.4-20.1) 03/22/21 03:43 Methemoglobin 1.1 % (0.4-1.5) 03/22/21 03:43 Total Hemoglobin 14.2 g/dL (14-18) 03/22/21 03:43 Sodium 132.0 mmol/L (131-143) 03/22/21 03:43 Potassium 3.7 mmol/L (3.5-5.0) 03/22/21 03:43 Glucose 142.0 mg/dL (70-115) H 03/22/21 03:43 Ionized Calcium 1.2 mmol/L (1.1-1.4) 03/22/21 03:43 O2 Delivery Device Vent 03/22/21 03:43 FiO2 35.0 % 03/22/21 03:43 Tidal Volume 0.55 03/22/21 03:43 PEEP 5.0 cmH20 03/22/21 03:43 Associate Dean Of Women ID [email or web address] 03/22/21 03:43 Sodium 131 mmol/L (136-145) L 03/25/21 04:36 Potassium 4.2 mmol/L (3.5-5.1) 03/25/21 04:36 Chloride 99 mmol/L (98-107) 03/25/21 04:36 Carbon Dioxide 20 mmol/L (22-29) L 03/25/21 04:36 Anion Gap 16.2 (5-19) 03/25/21 04:36 BUN 25 mg/dL (6-20) H 03/25/21 04:36 Creatinine 0.9 mg/dL (0.7-1.2) 03/25/21 04:36 GFR Calculation 87.0 mL/min (90-130) L 03/25/21 04:36 Glucose 98 mg/dL (65-115) 03/25/21 04:36 POC Glucose 108 mg/dL (70-110) 03/22/21 01:07 Estimat Average Glucose 120 03/17/21 07:26 Hemoglobin A1c 5.8 % (4.0-6.0) 03/17/21 07:26 Calculated Osmolality 276 mOsm/kg (285-295) L 03/25/21 04:36 Lactic Acid 7.9 mmol/L (0.5-2.2) H* 03/16/21 18:33 Lactic Acid (Sepsis) 6.0 mmol/L (0.5-2.2) H* 03/16/21 21:19 Lactate 3.2 mmol/L (0.5-2.2) H 03/18/21 07:30 Uric Acid 8.9 mg/dL (3.4-7.0) H 03/16/21 05:00 Calcium 8.2 mg/dL (8.5-10.5) L 03/25/21 04:36 Phosphorus 2.8 mg/dL (2.5-4.5) 03/18/21 13:41 Magnesium 2.0 mg/dL (1.7-2.3) 03/24/21 03:00 Iron 59 ug/dL (59-158) 03/16/21 15:32 TIBC 292 mcg/dl 03/16/21 15:32 % Saturation 20.2 % (20-50) 03/16/21 15:32 Unsat Iron Binding 233 ug/dL (112-347) 03/16/21 15:32 Total Bilirubin 1.6 mg/dL (0.15-1.2) H 03/25/21 04:36 AST 184 U/L (0-40) H 03/25/21 04:36 ALT 278 U/L (0-41) H 03/25/21 04:36 Alkaline Phosphatase 179 IU/L (40-130) H 03/25/21 04:36 Creatine Kinase 176 U/L (39-308) 03/15/21 13:41 CK-MB (CK-2) 5.9 ng/mL (0-10.4) 03/15/21 13:41 CK-MB (CK-2) Rel Index % (0.0-5.3) 03/15/21 13:41 Troponin T Baseline 3308 ng/L (0-15) H* 03/15/21 13:41 Troponin T 120 Minute 3230 ng/L (0-15) H 03/15/21 17:40 Delta Troponin T -78 ABS# (0-10) L 03/15/21 17:40 Troponin T Hi Sens 6Hr 4082 ng/L (0-15) H 03/15/21 18:47 Troponin T Hi Sens 6Hr Delta 774 ng/L (0-12) H* 03/15/21 18:47 Total Protein 5.0 g/dL (6.6-8.7) L 03/25/21 04:36 Albumin 2.2 g/dL (3.5-5.2) L 03/25/21 04:36 Globulin 2.8 g/dL (1.3-4.6) 03/25/21 04:36 TSH 2.65 uIU/mL (0.27-4.20) 03/16/21 05:00 Urine Color Yellow (Yellow) 03/16/21 23:30 Urine Appearance Hazy (CLEAR) A 03/16/21 23:30 Urine pH 5 (5-7) 03/16/21 23:30 Ur Specific [place] 1.020 (1.005-1.030) 03/16/21 23:30 Urine Protein 3+ (Negative) H 03/16/21 23:30 Urine Glucose (UA) Trace (Normal) H 03/16/21 23:30 Urine Ketones 1+ (Negative) H 03/16/21 23:30 Urine Blood 3+ (Negative) H 03/16/21 23:30 Urine Nitrate Negative (Negative) 03/16/21 23:30 Urine Bilirubin 1+ (Negative) H 03/16/21 23:30 Urine Urobilinogen 4 mg/dL (Negative) H 03/16/21 23:30 Ur Leukocyte Esterase Trace (Negative) H 03/16/21 23:30 Urine RBC 0-4 /hpf (0-2) H 03/16/21 23:30 Urine WBC 0-4 /hpf (0-5) H 03/16/21 23:30 Ur Eosinophil Smear 0 (0-0) 03/16/21 23:30 Ur Squamous Epith Cells 0-4 /hpf (0-5) H 03/16/21 23:30 Amorphous Sediment 3+ /hpf 03/16/21 23:30 Urine Bacteria 2+ /hpf (NONE) H 03/16/21 23:30 Urine Mucus 2+ /hpf 03/16/21 23:30 Urine Sperm 1+ /hpf 03/16/21 23:30 Urine Eosinophils No eosinophils seen 03/16/21 23:30 Ur Random Creatinine 132 mg/dL (20-320) 03/16/21 23:30 Ur Random Albumin 59 % 03/16/21 23:30 Ur Random Microalbumin 92 ug/dL (0-20) H 03/16/21 23:30 U Random Total Protein 225 mg/dL (5-25) H 03/16/21 23:30 Ur Random Sodium 18 mmol/L 03/16/21 23:30 Ur Random Potassium 75 mmol/L 03/16/21 23:30 Ur Random Chloride 11 mmol/L 03/16/21 23:30 Urine Creatinine 141 mg/dL (39-259) 03/16/21 23:30 Microalb/Creat Ratio 652 mg/dL (0-20) H 03/16/21 23:30 Protein/Creatinin Ratio 1705 mg/g creat (22-128) H 03/16/21 23:30 Protein/Creat Ratio 24h 1.705 (0.022-0.128) H 03/16/21 23:30 U Random x-5-Yiideztj % 2 % 03/16/21 23:30 U Random d-2-Fhmkpbyo % 7 % 03/16/21 23:30 U Random Beta Globulin 20 % 03/16/21 23:30 U Random Gamma Glob 12 % 03/16/21 23:30 U Abnormal Prot Band 1 Not Reportable 03/16/21 23:30 U Abnormal Prot Band 2 Not Reportable 03/16/21 23:30 U Abnormal Prot Band 3 Not Reportable 03/16/21 23:30 Urine PEP Interpret See note 03/16/21 23:30 Coronavirus 229E (PCR) Not detected (NOT DETECT) 03/19/21 12:20 Hepatitis A IgM Ab Non-reactive (Nonreactive) 03/16/21 18:33 Hep Bs Antigen Non-reactive (Nonreactive) 03/16/21 18:33 Hep Bs Antibody 6.5 (11.5-1000) L 03/16/21 18:33 Hep B Core Total Ab Non-reactive (Nonreactive) 03/16/21 18:33 Hepatitis C Antibody Non-reactive (Nonreactive) 03/16/21 18:33 SARS-CoV-2 (PCR) Not detected (NOT DETECT) 03/19/21 12:20 SARS-CoV-2 Ag (Rapid) Negative (Negative) 03/19/21 10:00 A&P Assessment and plan (1) LV (left ventricular) mural thrombus: Patient was started on Coumadin. The INR from today was 1.32. The liver enzymes are coming down. He also was started on Lovenox. Tolerating medication so far well Status: Acute (2) Ventricular fibrillation: Patient status post ICD implantation. No recurrence of ventricular fibrillation. Was started on amiodarone 400 mg p.o. twice daily. Medication is tolerated well so far. We will continue on the current dose. Status: Acute (3) Cardiogenic shock: Patient is alert functions continue to improve. The liver and the kidney functions are returning back to baseline. Status: Acute (4) HFrEF (heart failure with reduced ejection fraction): Left ventricular ejection fraction was around 15%. The losartan was discontinued because of the hypotension. Status: Acute (5) ST elevation myocardial infarction (STEMI): He may be continued on the Plavix, statin and other medications. Because of the hypotension, we are holding off on any other medications at this point Status: Acute Qualifiers: Involved coronary artery: LAD coronary artery Qualified Code(s): I21.02 - ST elevation (STEMI) myocardial infarction involving left anterior descending coronary artery (6) Shock liver: The liver function continues to improve. May continue on the current treatment measures. Status: Acute Additional A&P Information Based on the clinical progress, further recommendations will be made. Will do daily PT/INR In view of the patient's severe LV systolic dysfunction and the ongoing hypotension, he may benefit from a left ventricular assist device. I will be contacting the [facility] for potential transfer and consider LVAD. Patient and the family is agreeable for this. In the meanwhile, he may continue on the current medications. Attestations Medical Necessity Statement*: Patient requires continued hospital stay for close monitoring and further management Coding Level of Care Code Acute Home Improvement Advisor for [facility] Fwd History Detailed Exam Detailed Medical Decision Making Moderate Complexity Diagnoses LV (left ventricular) mural thrombus I51.3 Ventricular fibrillation I49.01 Cardiogenic shock R57.0 HFrEF (heart failure with reduced ejection fraction) I50.20 ST elevation myocardial infarction (STEMI) I21.02 Involved coronary artery: LAD coronary artery Shock liver K72.00
[2021-03-25] MEDS: sennosides 8.6 mg Tablet 17.2 MG PO (21:04)
[2021-03-25] MEDS: atorvastatin 40 mg Tablet 80 MG PO (21:04)
[2021-03-26] VITALS (18 sets, daily range): BP systolic 85–130; BP diastolic 66–89; PULSE 75–91; RESP 15–20; TEMP 36.6–37; O2SAT 57–100
[2021-03-26 05:39] LABS: Basophils % 0.3 %; Eosinophils # 0.1 10^3/uL (0.0-0.8); Eosinophils % 0.6 %; Hematocrit 40.2 % (42.0-52.0); Hemoglobin 13.3 g/dL (11.7-16.6); Lymphocytes # 1.1 10^3/uL (0.8-4.8); Lymphocytes % 14.7 %; Mean Corpuscular HGB Conc 33.1 g/dL (30.0-36.0); Mean Corpuscular Hemoglobin 30.8 pg (28.0-34.0); Mean Corpuscular Volume 93.1 fl (80-94); Mean Platelet Volume 12.1 fL (7.4-10.4); Monocytes # 0.6 10^3/uL (0.2-0.9); Monocytes % 8.2 %; Neutrophils # 5.88 10^3/uL (1.8-7.7); Neutrophils % 75.7 %; Nucleated Red Blood Cells % 0 %; Platelet Count 210 10^3/cmm (130-400); Red Blood Count 4.32 10^6/uL (4.1-5.3); Red Cell Distribution Width 14.6 % (12.1-15.1); White Blood Count 7.8 10^3/uL (4.0-10.0)
[2021-03-26] MEDS: clopidogrel 75 mg Tablet PO (08:19)
[2021-03-26] MEDS: benzonatate 100 mg Capsule PO ×2 (08:19→14:15)
[2021-03-26] MEDS: enoxaparin 100 mg/mL Syringe SUBCUT (08:19)
[2021-03-26] MEDS: amiodarone 200 mg Tablet 400 MG PO (08:19)
[2021-03-26] MEDS: fluticasone nasal spray 16gm Btl 1 SPRAY NASAL (08:26)
[2021-03-26 08:37] LABS: Alanine Aminotransferase 197 U/L (0-41); Albumin Level 2.3 g/dL (3.5-5.2); Alkaline Phosphatase 153 IU/L (40-130); Anion Gap 13.1 (5-19); Aspartate Amino Transferase 102 U/L (0-40); Blood Urea Nitrogen 21 mg/dL (6-20); Calcium 7.4 mg/dL (8.5-10.5); Carbon Dioxide 21 mmol/L (22-29); Chloride 99 mmol/L (98-107); Globulin 2.7 g/dL (1.3-4.6); Glucose 87 mg/dL (65-115); Osmolality Calculated 270 mOsm/kg (285-295); Potassium 4.1 mmol/L (3.5-5.1); Sodium 129 mmol/L (136-145); Total Bilirubin 1.5 mg/dL (0.15-1.2)
--- NOTE | 2021-03-26 10:51 | P.PN_ITS ---
Subjective Subjective: Interval history: No CP or pressure. No SOB. Transiently weaned off pressor, but BP again down. Vitals/I&O/Wt Last Vital Signs Temp 98.6 F 03/26/21 07:00 Pulse 75 03/26/21 08:00 Resp 16 03/26/21 08:00 BP 105/81 03/26/21 08:00 Pulse Ox 96 03/26/21 08:00 03/25/21 03/26/21 03/26/21 22:59 06:59 14:59 Intake Total 306.586 / 1026.586 360 / 360 Output Total 125 / 300 350 / 650 200 / 200 Balance 181.586 / 726.586 -350 / 376.586 160 / 160 Weight last 48 hrs Weight 97.762 kg Physical Exam Narrative: EXAM NARRATIVE: at bedside. Const: COMMON NORMALS: no acute distress, patient oriented x3 and alert GENERAL APPEARANCE: cooperative and comfortable ORIENTATION/CONSCIOUSNESS: Yes awake OTHER: Moves all extremities, squeezes both hands. HENMT: COMMON NORMALS: oropharynx normal Neck/C-Spine: COMMON NORMALS: no JVD Resp: COMMON NORMALS: normal respiratory effort and clear to auscultation bilaterally EFFORT & INSPECTION: Yes able to speak in complete sentences AUSCULTATION: clear to auscultation bilaterally Cardio: COMMON NORMALS: no JVD, regular rhythm, S1 normal heart sound present, S2 normal heart sound present and No murmurs present (Cardio) RHYTHM: regular rhythm HEART SOUNDS: S1 normal heart sound present and S2 normal heart sound present GI: COMMON NORMALS: Normal to inspection, nondistended, normoactive bowel sounds present, Soft to palpation and non-tender PALPATION: Yes Soft to palpation Extremity: COMMON NORMALS: no joint enlargement GENERAL: Yes edema (1+ ankle edema BL) OTHER: Swelling R bulmaro-medial forearm, distal bicep after IV infiltration Neuro: COMMON NORMALS: patient oriented x3 and moves all extremities SENSORIUM/ORIENTATION: Yes alert Skin: COMMON NORMALS: no rashes or lesions noted GENERAL SKIN EXAM: no rashes or lesions noted Urinary Catheter Management^: Razo: Cath Placed During This Visit: yes, but has since been removed by the nurse Reason for Continuing Indwelling Catheter: Accurate Measurement of Urinary Output in Critically Ill Patients Urinary Catheter Date of Insertion: 03/22/21 Urinary Catheter Time of Insertion: 03:39 Date Urinary Catheter Removed: 03/24/21 Time Urinary Catheter Discontinued: 05:28 Data : 03/26/21 04:42 03/26/21 07:45 A&P Assessment and plan (1) Cardiogenic shock: Again requiring pressor. Cardiology arranging for transfer for additional bridge support until improves or if not then to definitive treatment. Weaned off dobutamine. Status: Acute (2) LV (left ventricular) mural thrombus: Noted on review of echocardiogram images. Discussed with patient. Lovenox, warfarin Status: Acute (3) Ventricular fibrillation: Doing well status post AICD placement 03/23. Continue oral amiodarone. Status: Acute (4) ST elevation myocardial infarction (STEMI): Status post revascularization to OM1. Platelets are better, but monitor. Continue Plavix, statin. Status: Acute Qualifiers: Involved coronary artery: LAD coronary artery Qualified Code(s): I21.02 - ST elevation (STEMI) myocardial infarction involving left anterior descending coronary artery (5) SANAM (acute kidney injury): Improved. Monitor renal function, I&O. Status: Acute (6) HFrEF (heart failure with reduced ejection fraction): Cardiology also started him on losartan 25 mg daily. Status: Acute (7) Hyperkalemia: Status: Acute (8) High anion gap metabolic acidosis: Status: Acute (9) Shock liver: Gradual improvement. Status: Acute (10) Transaminitis: Continue to transaminitis, but also with alk phos and T bili elevation obtained right groin ultrasound with noted nonshadowing increased echogenic foci within the gallbladder, suspected for complete sludge. No wall thickening. No bile duct dilation. Secondary to shock liver as above. Status: Acute (11) Blue toes: Improving. Most likely secondary to cardiogenic shock versus pressor requi rement. Lower limb arterial Dopplers appreciated without any acute occlusion. Discussed with him monitoring for continued improvement, if worsening seek medical attention immediately. Otherwise continue to follow-up for optimization of management of cardiovascular disease. Status: Acute (12) Thrombocytopenia: Improving. Less likely HIT. Status: Acute Additional A&P Information Infiltrated IV: Right forearm while increasing amiodarone on Monday. Swelling gradually decreasing. Elevate arm. Monitor. Hypomagnesemia: Replaced Fever: 99.9F on 03/18. Without recurrence. COVID-19 PCR negative. Less likely infectious. Blood cultures so far negative. Attestations Medical Necessity Statement*: Continue supportive care for cardiogenic shock. Arrangements for transfer for bridge therapy. Coding Level of Care Code Acute Telephone Plant Power Operator for g Fwd Diagnoses Cardiogenic shock R57.0 LV (left ventricular) mural thrombus I51.[address] elevation myocardial infarction (STEMI) I21.02 Involved coronary artery: LAD coronary artery SANAM (acute kidney injury) N17.9 HFrEF (heart failure with reduced ejection fraction) I50.20 Hyperkalemia E87.5 High anion gap metabolic acidosis E87.2 Shock liver K72.00 Transaminitis R74.01 Blue toes R23.0 Thrombocytopenia D69.6
--- NOTE | 2021-03-26 13:05 | P.PN_ITS ---
Subjective Subjective: Interval history: The patient is feeling okay with no chest pain or chest tightness. He has been on 2 mics of Levophed. This morning we tried to take him off this medication. Apparently his blood pressure dropped down to 69/51. For that reason, he was placed back on it. He has no unusual shortness of breath. No fever or chills. No cough. Medications: Reviewed: Yes Medication Review Details: Current Medications Acetaminophen (Acetaminophen 325 Mg Tablet) 650 mg PO Q6H PRN PRN Reason: MILD PAIN Last Admin: 03/20/21 12:39 Dose: 650 mg Documented by: Al Hydrox/Mg Hydrox/Simethicone (Ertg-Dwu-Aypmumqek-Jose 30 Ml Udc) 30 ml PO Q15M PRN PRN Reason: INDIGESTION Last Admin: 03/16/21 10:52 Dose: 30 ml Documented by: Amiodarone HCl (Amiodarone 200 Mg Tablet) 400 mg PO BID [facility] Last Admin: 03/26/21 08:19 Dose: 400 mg Documented by: Atorvastatin Calcium (Atorvastatin 40 Mg Tablet) 80 mg PO BEDTIME [facility] Last Admin: 03/25/21 21:04 Dose: 80 mg Documented by: Atropine Sulfate (Atropine 1 Mg/Ml Sdv 1 Ml) 0.5 mg IVP PRN PRN PRN Reason: Symptomatic bradycardia Benzonatate (Benzonatate 100 Mg Capsule) 100 mg PO TID [facility] Last Admin: 03/26/21 08:19 Dose: 100 mg Documented by: Clopidogrel Bisulfate (Clopidogrel 75 Mg Tablet) 75 mg PO DAILY [facility] Last Admin: 03/26/21 08:19 Dose: 75 mg Documented by: Enoxaparin Sodium (Enoxaparin 100 Mg/Ml Syringe) 100 mg 1 mg/kg (100 mg) SUBCUT Q12H [facility] Last Admin: 03/26/21 08:19 Dose: 100 mg Documented by: Fluticasone Propionate (Fluticasone Nasal [place] 16gm Btl) 1 spray NASAL DAILY [facility] Last Admin: 03/26/21 08:26 Dose: 1 spray Documented by: Guaifenesin/Codeine Phosphate (Guaifenesin-Codeine Udc 10 Ml) 5 ml PO Q6H PRN PRN Reason: COUGH Norepinephrine Bitartrate 4 mg (/ Dextrose) 254 mls @ 0 mls/hr IV .Q0M [facility]; Protocol Last Titration: 03/25/21 22:41 Dose: 1 mcg/min, 3.81 mls/hr Documented by: Magnesium Hydroxide (Magnesium Hydroxide 30 Ml Udc) 30 ml PO DAILY PRN PRN Reason: CONSTIPATION Metoclopramide HCl (Metoclopramide 5 Mg/Ml Sdv 2 Ml) 5 mg IVP Q6H PRN PRN Reason: NAUSEA AND VOMITING Last Admin: 03/18/21 17:04 Dose: 5 mg Documented by: Naloxone HCl (Naloxone 0.4 Mg/Ml Sdv) 0.1 mg IVP Q2M PRN PRN Reason: RESPIRATORY RATE < 8/MIN Nitroglycerin (Nitroglycerin 0.4 Mg Sublingual Tablet) 0.4 mg SUBLINGUAL Q5M PRN PRN Reason: CHEST PAIN Phenylephrine HCl (Phenylephrine 0.5% Nasal 15 Ml Btl) 1 spray NASAL Q4H PRN PRN Reason: Nose bleed Last Admin: 03/20/21 13:23 Dose: 1 dose Documented by: Senna (Sennosides 8.6 Mg Tablet) 17.2 mg PO BEDTIME [facility] Last Admin: 03/25/21 21:04 Dose: 17.2 mg Documented by: Warfarin Sodium (Warfarin 5 Mg Tablet) 5 mg PO DAILY@1400 [facility] Last Admin: 03/25/21 14:32 Dose: 5 mg Documented by: Vitals/I&O/Wt Last Vital Signs Temp 97.9 F 03/26/21 12:00 Pulse 83 03/26/21 12:00 Resp 17 03/26/21 12:00 BP 104/66 03/26/21 12:00 Pulse Ox 98 03/26/21 12:00 03/25/21 03/26/21 03/26/21 22:59 06:59 14:59 Intake Total 306.586 / 1026.586 360 / 360 Output Total 125 / 300 350 / 650 200 / 200 Balance 181.586 / 726.586 -350 / 376.586 160 / 160 Weight last 48 hrs Weight 215 lb 8.453 oz Physical Exam Narrative: EXAM NARRATIVE: GENERAL: The patient is currently alert and oriented x3 HEENT: No significant pallor, icterus or lymphadenopathy.Oral cavity: There are no mucous membrane lesions. NECK: Trachea appears to be central. No masses noted. No JVD or thyromegaly appreciated. RESPIRATORY: Chest is symmetrical. No intercostals muscle retraction or any accessory muscle activation. There is no chest wall tenderness. Breath sounds are heard bilaterally. No rales or rhonchi heard. No evidence of any consolidation. BREASTS: Deferred. HEART: The heart sounds are normal. No S3 or S4. Short systolic murmur in the left sternal border. No diastolic murmurs. No pericardial rub ABDOMEN: No vessel pulsations or distention. No tenderness. No organomegaly appreciated. Bowel sounds are normally heard. : Deferred. RECTAL: Deferred. LYMPHATIC: No lymphadenopathy noted in the neck or groin. EXTREMITIES: No edema . The peripheral cyanosis in the toes has significantly improved MUSCULOSKELETAL: No acute joint deformities or swelling SKIN: There are no significant rashes or ecchymosis NEUROPSYCHIATRIC: No focal motor deficits Urinary Catheter Management^: Razo: Cath Placed During This Visit: yes, but has since been removed by the nurse Reason for Continuing Indwelling Catheter: Accurate Measurement of Urinary Output in Critically Ill Patients Urinary Catheter Date of Insertion: 03/22/21 Urinary Catheter Time of Insertion: 03:39 Date Urinary Catheter Removed: 03/24/21 Time Urinary Catheter Discontinued: 05:28 Data : 03/26/21 04:42 03/26/21 07:45 A&P Assessment and plan (1) Cardiogenic shock: Patient is still requiring vasopressors to maintain the mean arterial pressure above 70. Because of his dependency on vasopressors, he may benefit from left ventricular assist devices. I contacted , part of the heart transplant surgeons at the [facility] in [place]. Dr. Curry was accepted transfer for further management. But because of the bed situation, he will be on a waiting list Status: Acute (2) Ventricular fibrillation: Patient has no recurrence of ventricular fibrillation. Status post ICD with no discharges so far since implant. Was started on amiodarone 400 mg p.o. twice daily. Medication is tolerated well so far. We will continue on the current dose. Status: Acute (3) LV (left ventricular) mural thrombus: Patient was started on Coumadin. The INR is still subtherapeutic. July c ontinue on the current medications. Types of ventricular assist devices Status: Acute (4) HFrEF (heart failure with reduced ejection fraction): Left ventricular ejection fraction was around 15%. The losartan was d iscontinued because of the hypotension. Status: Acute (5) ST elevation myocardial infarction (STEMI): He may be continued on the Plavix, statin and other medications. We will continue holding the RASHIDA inhibitor's and beta-blockers because of the hypotension Status: Acute Qualifiers: Involved coronary artery: LAD coronary artery Qualified Code(s): I21.02 - ST elevation (STEMI) myocardial infarction involving left anterior descending coronary artery (6) Shock liver: The liver function continues to improve. May continue on the current treatment measures. Status: Acute Additional A&P Information Based on the clinical progress, further recommendations will be made. Will do daily PT/INR [facility] was not able to accept due to the bed situation, I contacted Dr. Curry at the [facility] in [place] and discussed the patient's condition.Dr Curry accepted the transfer of this patient for further evaluation and management. Patient is going to be in the waiting list Attestations Medical Necessity Statement*: Patient requires continued hospital stay for close monitoring and further management Coding Level of Care Code Acute Tire Recapping Machine Operator for Chg Fwd History Detailed Medical Decision Making Moderate Complexity Diagnoses Cardiogenic shock R57.0 Ventricular fibrillation I49.01 LV (left ventricular) mural thrombus I51.3 HFrEF (heart failure with reduced ejection fraction) I50.20 ST elevation myocardial infarction (STEMI) I21.02 Involved coronary artery: LAD coronary artery Shock liver K72.00 Time Spent (min) 45
[2021-03-26] MEDS: warfarin 5 mg Tablet PO (14:16)
[2021-03-26 14:52] LABS: Adenovirus Not Detected (NOT DETECT); Chlamydia Pneumoniae Not Detected (NOT DETECT); Coronavirus 229E,HKU1,NL63,OC4 Not Detected (NOT DETECT); Human Metapneumovirus Not Detected (NOT DETECT); Human Rhinovirus/Enterovirus Not Detected (NOT DETECT); Influenza A Not Detected (NOT DETECT); Influenza A H1 Not Detected (NOT DETECT); Influenza A H1-2009 Not Detected (NOT DETECT); Influenza A H3 Not Detected (NOT DETECT); Influenza B Not Detected (NOT DETECT); Mycoplasma Pneumoniae Not Detected (NOT DETECT); Parainfluenza Virus Type 1 Not Detected (NOT DETECT); Parainfluenza Virus Type 2 Not Detected (NOT DETECT); Parainfluenza Virus Type 3 Not Detected (NOT DETECT); Parainfluenza Virus Type 4 Not Detected (NOT DETECT); Respiratory Syncytial Virus A Not Detected (NOT DETECT); Respiratory Syncytial Virus B Not Detected (NOT DETECT); SARS-COV-2 Not Detected (NOT DETECT)
--- NOTE | 2021-03-26 16:38 | PC.NURSE ---
Report called to Nurse Bernal at [facility] at 1500 patient to be transferred to the CT ICU floor room 5616. and television analyzer notified of available bed and transfer. PCS and COBRA form completed by this nurse and signed off by and Rim Roller Setter- TESSY Xavier. Transport contacted by Margaret and [employer]. Patient family requested patient transport to the new facility be via ambulance instead of Dr. French's recommendation of flight transport. Dr. French notified and agreed to this if ambulance were educated in Levophed drip management. This nurse confirmed education, patient able to transport by ambulance. Transport arrived at 1630 and patient left connected to monitoring engineer and noted to be receiving 2mcg/min of Levophed. Physician notified of patient's transport.
--- NOTE | 2021-03-26 19:00 | PM.TDS ---
Transfer Summary Providers Date of Admission: 03/15/21 15:39 Date of Discharge: 03/26/21 Attending Provider at Admission: Elton Nickerson M.D Attending Provider at Transfer: Elton Nickerson M.D Primary Care Provider: Sher Aviles MD Anticipated Date of Transfer: Anticipated date of transfer: 03/26/21 Receiving Facility & Provider: Receiving Provider: [] Receiving facility: [] Diagnoses at Discharge Discharge Diagnosis (1) Cardiogenic shock: Status: Acute (2) Ventricular fibrillation: Status: Acute (3) LV (left ventricular) mural thrombus: Status: Acute (4) HFrEF (heart failure with reduced ejection fraction): Status: Acute (5) ST elevation myocardial infarction (STEMI): Status: Acute Qualifiers: Involved coronary artery: LAD coronary artery Qualified Code(s): I21.02 - ST elevation (STEMI) myocardial infarction involving left anterior descending coronary artery (6) Shock liver: Status: Acute Reason for Visit Reason for Visit: SOB, TIGHTNESS, CP Hospital Course Hospital Course 56-year-old gentleman originally admitted on 03/15 with chest pain, with finding of STEMI at presentation he underwent angiographic assessment with finding of 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 LV gram revealed akinetic/dyskinetic apical regions with ejection fraction calculated at 15%. Initially with cardiogenic shock, also with SANAM, transaminitis, on norepinephrine, dobutamine, subsequently weaned off with improving renal and liver parameters, also with improving glucose bilaterally, L>R, with no significant arterial obstruction noted on duplex of lower extremities. Minimal plaques in iliac, femoral and popliteal arteries bilaterally. Hospitalization complicated by V. fib/V. tach arrest requiring 4 defibrillations, CPR, restarted on vasopressors with phenylephrine, started on dobutamine, amiodarone, lidocaine drips. Weaned off lidocaine drip, wean down phenylephrine, transition to oral amiodarone, weaned off dobutamine. Underwent implantation of AICD on 03/23, doing well postoperatively. With persistence of blood pressures. Fluctuating platelet levels, although now improving, initially with thrombocytopenia platelets as low 70,000. Today 210,000. On review of TTE noted she also have mural thrombus for which was started on anticoagulation with Lovenox and warfarin. Blood pressures tenuous, however, intolerant of even low-dose losartan, and again on and off requiring pressor with Levophed although small rate. Given degree of cardiomyopathy and low blood pressures cardiology arranged for transfer for additional bridge LV support therapy to either improvement of cardiomyopathy or more definitive treatment. Patient and family both agreeable for transfer for continued assessment and care. Kindly accepted for further management at [facility] where he transferred today once a bed became open. Physical Exam Narrative: EXAM NARRATIVE: at bedside. Const: COMMON NORMALS: no acute distress, patient oriented x3 and alert GENERAL APPEARANCE: cooperative and comfortable ORIENTATION/CONSCIOUSNESS: Yes awake OTHER: Moves all extremities, squeezes both hands. HENMT: COMMON NORMALS: oropharynx normal Neck/C-Spine: COMMON NORMALS: no JVD Resp: COMMON NORMALS: normal respiratory effort and clear to auscultation bilaterally EFFORT & INSPECTION: Yes able to speak in complete sentences AUSCULTATION: clear to auscultation bilaterally Cardio: COMMON NORMALS: no JVD, regular rhythm, S1 normal heart sound present, S2 normal heart sound present and No murmurs present (Cardio) RHYTHM: regular rhythm HEART SOUNDS: S1 normal heart sound present and S2 normal heart sound present GI: COMMON NORMALS: Normal to inspection, nondistended, normoactive bowel sounds present, Soft to palpation and non-tender PALPATION: Yes Soft to palpation Extremity: COMMON NORMALS: no joint enlargement GENERAL: Yes edema (1+ ankle edema BL) OTHER: Swelling R bulmaro-medial forearm, distal bicep after IV infiltration Neuro: COMMON NORMALS: patient oriented x3 and moves all extremities SENSORIUM/ORIENTATION: Yes alert Skin: COMMON NORMALS: no rashes or lesions noted GENERAL SKIN EXAM: no rashes or lesions noted Urinary Catheter Management^: Razo: Cath Placed During This Visit: yes, but has since been removed by the nurse Reason for Continuing Indwelling Catheter: Accurate Measurement of Urinary Output in Critically Ill Patients Urinary Catheter Date of Insertion: 03/22/21 Urinary Catheter Time of Insertion: 03:39 Date Urinary Catheter Removed: 03/24/21 Time Urinary Catheter Discontinued: 05:28 TS Data Data Completed and Pending: Completed Studies During Hospitalization Category Date Time Status DIGITAL ADVERTISING SPECIALIST request for service Stat Exams 03/15/21 13:57 Completed XR chest 1V yana ble [id number] Routine Exams 03/15/21 23:07 Completed XR chest 1V yana ble [id number] Stat Exams 03/22/21 01:20 Completed XR chest 1V yana ble [id number] Urgent Exams 03/15/21 13:25 [place] [id number] Urge nt Ultrasound 03/17/21 17:40 Completed CV. echo lmt w/w contras [id number] Rout ine Ultrasound 03/18/21 07:11 Completed CV. echo wo/w con trast [id number] Urgent Ultrasound 03/15/21 15:29 Completed [place] abdomen limite d [id number] Routine Ultrasound 03/24/21 08:37 Completed US renal BI* [id number] Routine Ultrasound 03/17/21 17:45 Completed Labs from last 24 hours 03/26/21 03/26/21 03/26/21 13:00 07:45 04:42 WBC RBC Hgb Hct MCV MCH MCHC RDW Plt Count MPV Neut % (Auto) Lymph % (Auto) [place] % (Auto) Eos % (Auto) Baso % (Auto) Neut # (Auto) Lymph # (Auto) [place] # (Auto) Eos # (Auto) Baso # (Auto) Nucleated RBC % (a uto) Nucleated RBCs # Sodium 129 L Cancelled Potassium 4.1 Cancelled Chloride 99 Cancelled Carbon Dioxide 21 L Cancelled Anion Gap 13.1 Cancelled BUN 21 H Cancelled Creatinine 0.9 Cancelled GFR Calculation 87.0 L Cancelled Glucose 87 Cancelled Calculated Osmolal ity 270 L Cancelled Calcium 7.4 L Cancelled Total Bilirubin 1.5 H Cancelled AST 102 H Cancelled ALT 197 H Cancelled Alkaline Phosphata se 153 H Cancelled Total Protein 5.0 L Cancelled Albumin 2.3 L Cancelled Globulin 2.7 Cancelled Coronavirus 229E ( PCR) Not detected SARS-CoV-2 (PCR) Not detected 03/26/21 04:42 WBC 7.8 RBC 4.32 Hgb 13.3 Hct 40.2 L MCV 93.1 MCH 30.8 MCHC 33.1 RDW 14.6 Plt Count 210 D MPV 12.1 H Neut % (Auto) 75.7 Lymph % (Auto) 14.7 [place] % (Auto) 8.2 Eos % (Auto) 0.6 Baso % (Auto) 0.3 Neut # (Auto) 5.88 Lymph # (Auto) 1.1 [place] # (Auto) 0.6 Eos # (Auto) 0.1 Baso # (Auto) 0.0 Nucleated RBC % (a uto) 0 Nucleated RBCs # 0.0 Sodium Potassium Chloride Carbon Dioxide Anion Gap BUN Creatinine GFR Calculation Glucose Calculated Osmolal ity Calcium Total Bilirubin AST ALT Alkaline Phosphata se Total Protein Albumin Globulin Coronavirus 229E ( PCR) SARS-CoV-2 (PCR) Vitals: Last Vital Signs Temp 97.9 F 03/26/21 12:00 Pulse 90 03/26/21 16:51 Resp 17 03/26/21 16:51 BP 108/87 03/26/21 16:51 Pulse Ox 91 03/26/21 16:51 TS Medications Medications Home Medications aspirin 325 mg PO DAILY 03/16/21 [History Confirmed 03/16/21] Discharge Plan Discharge Patient Disposition: Xfer Short-Term Hosp Condition: Stable Prescriptions: No Action aspirin 325 mg Tablet 325 mg PO DAILY RF: 0 Referrals: Joe Card MD [Staff Physician] - 04/08/21 8:30 am (April 08 8:30am) Transfer Attestations Time Spent in Transfer Care*: greater than 30 min Quality Metrics Clinical Quality Measures: During this hospital stay, did patient experience: None Coding Level of Care Code Acute Senior Geologist for Chg Fwd Diagnoses Cardiogenic shock R57.0 Ventricular fibrillation I49.01 LV (left ventricular) mural thrombus I51.3 HFrEF (heart failure with reduced ejection fraction) I50.20 ST elevation myocardial infarction (STEMI) I21.02 Involved coronary artery: LAD coronary artery Shock liver K72.00
== END 2021-03-26 16:54 | disposition short-term general hospital (02) | DRG 222 ==
LOC: ER 13:58 → CSU 15:54 → ICU 03-16 21:07 → CSU 03-20 15:47 → ICU 03-21 23:55
PROVIDERS: Internal Medicine; Internal Medicine Cardiovascular Disease; Internal Medicine Nephrology; Physician Assistant; Student in an Organized Health Care Education/Training Program; Thoracic Surgery (Cardiothoracic Vascular Surgery); Admitting Provider Internal Medicine; Emergency Provider Family Medicine; PCP Family Medicine; Visit Provider Internal Medicine
PROC: 4A023N7 Measurement of Cardiac Sampling and Pressure, Left Heart, Percutaneous Approach (ICD-10-PCS; principal; 2021-03-15 13:50)
PROC: 4A023N7 Measurement of Cardiac Sampling and Pressure, Left Heart, Percutaneous Approach (ICD-10-PCS; 2021-03-15 13:50)
PROC: 0JH608Z Insertion of Defibrillator Generator into Chest Subcutaneous Tissue and Fascia, Open Approach (ICD-10-PCS; CPT 33249; principal; 2021-03-23 09:35)
DX: I21.02 ST elevation (STEMI) myocardial infarction involving left anterior descending coronary artery (principal); N17.0 Acute kidney failure with tubular necrosis; I50.21 Acute systolic (congestive) heart failure; R57.0 Cardiogenic shock; K72.00 Acute and subacute hepatic failure without coma; I49.01 Ventricular fibrillation; I46.9 Cardiac arrest, cause unspecified; E87.2 Acidosis; I25.10 Atherosclerotic heart disease of native coronary artery without angina pectoris; F17.210 Nicotine dependence, cigarettes, uncomplicated; N14.1 Nephropathy induced by other drugs, medicaments and biological substances; T50.8X5A Adverse effect of diagnostic agents, initial encounter; E87.5 Hyperkalemia; N18.9 Chronic kidney disease, unspecified; D69.6 Thrombocytopenia, unspecified; I25.5 Ischemic cardiomyopathy; E83.42 Hypomagnesemia
CPT/HCPCS: 31500; 36415; 36416; 36592; 36600; 51702; 71045; 76000; 76705; 76770; 80048; 80051; 80053; 81001; 81003; 82044; 82330; 82436; 82550; 82553; 82570; 82803; 82805; 82962; 83036; 83540; 83550; 83605; 83735; 84100; 84133; 84156; 84166; 84300; 84443; 84484; 84550; 85025; 85610; 85730; 85999; 86705; 86706; 86709; 86803; 87040; 87086; 87340; 87426; 87635; 92920; 92921; 93005; 93452; 93925; 94002; 94003; 94799; 96372; 96374; 97116; 97161; 97530; 99285; A4570; C1721; C1725; C1751; C1769; C1777; C1779; C1887; C1894; C8924; C8929; J0153; J0171; J0282; J0610; J0690; J1250; J1644; J1650; J1815; J1940; J2001; J2250; J2370; J2405; J2704; J2765; J3010; J3475; J3490; J7030; J7040; J7050; J7060; Q0162; Q3014; Q9956; Q9967

== ENCOUNTER 2021-05-20 13:09 | Outpatient (RCR) | payer OTHER, SELFPAY | END 2021-06-17 23:59 | disposition home or self-care (01) | LOC: CR 13:09 | PROVIDERS: PCP Family Medicine; Referring Provider Family Medicine; Visit Provider Family Medicine | DX: I25.10 Atherosclerotic heart disease of native coronary artery without angina pectoris (principal) | CPT/HCPCS: 93798 ==

== ENCOUNTER 2021-06-18 09:12 | Outpatient (RCR) | payer OTHER, SELFPAY | END 2021-07-17 23:59 | disposition home or self-care (01) | LOC: CR 09:12 | PROVIDERS: PCP Family Medicine; Referring Provider Family Medicine; Visit Provider Family Medicine | DX: I25.10 Atherosclerotic heart disease of native coronary artery without angina pectoris (principal) | CPT/HCPCS: 93798 ==

== ENCOUNTER 2021-07-22 09:44 | Outpatient (RCR) | payer OTHER, SELFPAY | END 2021-08-17 23:59 | disposition home or self-care (01) | LOC: CR 09:44 | PROVIDERS: PCP Family Medicine; Referring Provider Family Medicine; Visit Provider Family Medicine | DX: I25.10 Atherosclerotic heart disease of native coronary artery without angina pectoris (principal) | CPT/HCPCS: 93798 ==

== ENCOUNTER 2021-08-18 14:19 | Outpatient (RCR) | payer OTHER, SELFPAY | END 2021-09-16 23:59 | disposition home or self-care (01) | LOC: CR 14:19 | PROVIDERS: PCP Family Medicine; Referring Provider Family Medicine; Visit Provider Family Medicine | DX: I25.10 Atherosclerotic heart disease of native coronary artery without angina pectoris (principal) | CPT/HCPCS: 93798 ==

== ENCOUNTER 2021-09-17 10:00 | Outpatient (RCR) | payer SELFPAY | END 2021-10-17 23:59 | disposition home or self-care (01) | LOC: CR 10:00 | PROVIDERS: PCP Family Medicine; Referring Provider Family Medicine; Visit Provider Family Medicine | DX: I25.10 Atherosclerotic heart disease of native coronary artery without angina pectoris (principal) ==

== ENCOUNTER 2021-10-18 14:43 | Outpatient (RCR) | payer SELFPAY | END 2021-11-17 23:59 | disposition home or self-care (01) | LOC: CR 14:43 | PROVIDERS: PCP Family Medicine; Referring Provider Family Medicine; Visit Provider Family Medicine | DX: I25.10 Atherosclerotic heart disease of native coronary artery without angina pectoris (principal) ==

== ENCOUNTER 2021-11-18 12:07 | Outpatient (RCR) | payer SELFPAY | END 2021-12-17 23:59 | disposition home or self-care (01) | LOC: CR 12:07 | PROVIDERS: PCP Family Medicine; Referring Provider Family Medicine; Visit Provider Family Medicine | DX: I25.10 Atherosclerotic heart disease of native coronary artery without angina pectoris (principal) ==

== ENCOUNTER → 2021-11-30 09:31 | Outpatient (BNVA) | payer MEDICAID, SELFPAY | PROVIDERS: PCP Family Medicine; Visit Provider Family Medicine | DX: I50.20 Unspecified systolic (congestive) heart failure (principal); I25.10 Atherosclerotic heart disease of native coronary artery without angina pectoris; I21.3 ST elevation (STEMI) myocardial infarction of unspecified site | CPT/HCPCS: 80053; 80061; 83880; 85025 ==

== ENCOUNTER 2021-12-19 14:05 | Outpatient (RCR) | payer MEDICAID, SELFPAY | END 2022-01-17 23:59 | disposition home or self-care (01) | LOC: CR 14:05 | PROVIDERS: PCP Family Medicine; Referring Provider Family Medicine; Visit Provider Family Medicine | DX: I25.10 Atherosclerotic heart disease of native coronary artery without angina pectoris (principal) | CPT/HCPCS: 93283 ==

== ENCOUNTER 2022-02-17 15:19 | Outpatient (RCR) | payer MEDICAID, SELFPAY | END 2022-03-19 23:59 | disposition home or self-care (01) | LOC: CR 15:19 | PROVIDERS: PCP Family Medicine; Referring Provider Family Medicine; Visit Provider Family Medicine | DX: I25.10 Atherosclerotic heart disease of native coronary artery without angina pectoris (principal) ==

== ENCOUNTER 2022-03-16 06:44 | Outpatient (CLI) | payer MEDICAID, SELFPAY ==
--- NOTE | 2022-03-16 | USCV_ITS ---
Jose Antonio Mathew Age: 57 Gender: M : 1965 Exam Date: 03/16/2022 07:01 Ordering Phys: Eloisa Valdes MD Technologist: CASEY Exam Location: [place] Indication: CARDIOMYOPATHY, ISCHEMIC BP: 102 / 64 HR: 33 Rhythm: Sinus Technical Quality: Adequate MEASUREMENTS (Male / Female) Normal Values 2D ECHO LVOT Diameter 2.0 cm LV Ejection Fraction MOD 2C 5.1 % LV Ejection Fraction 2C AL 5.2 % LA Diameter 4.7 cm LA Width 4.1 cm LA Height 5.4 cm RA Width 3.7 cm RA Height 5.2 cm Aorta at Sinotubular Diameter 2.8 cm IVC Diameter 2.5 cm M-MODE Aortic Annulus Diameter 2.6 cm LA Ao Ratio MM 1.8 MV E Point Septal Separation 1.6 cm DOPPLER AV Peak Velocity 105.3 cm/s LVOT Peak Velocity 71.0 cm/s AV Area Cont Eq vti 2.1 cm squared AV Area Cont Eq pk 2.2 cm squared MV Peak Velocity 121.0 cm/s MV Area PHT 3.1 cm squared MV E' Velocity 59.5 cm/s Mitral E to MV E' Ratio 19.7 Mitral E to LV E' Lateral Ratio 20.8 Mitral E to LV E' Septal Ratio 18.8 TR Peak Velocity 194.5 cm/s TR Peak Gradient 15.1 mmHg TR Mean Velocity 219.9 cm/s TR Mean Gradient 20.7 mmHg TR Velocity Time Integral 98.8 cm Right Atrial Pressure 15.0 mmHg Pulmonary Artery Systolic Pressu 30.1 mmHg PV Peak Velocity 90.0 cm/s RV Acceleration Time 0.1 s RV Ejection Time 0.3 s RV AcT/ET 0.3 FINDINGS Left Ventricle Left ventricle is dilated. LV systolic function is severely reduced with EF of 15-20%. Severe global hypokinesis with akinetic apical, mid to apical anterior and anteroseptal shah. No LV thrombus is seen Right Ventricle Normal in size and function. Pacemaker lead is seen Right Atrium Normal in size. Pacemaker lead is seen. Elevated RA pressure> 10mmHg Left Atrium Dilated Mitral Valve Structurally normal mitral valve. Moderate mitral regurgitation. Aortic Valve Structurally normal aortic valve. No significant stenosis or regurgitation. Tricuspid Valve Mild tricuspid regurgitation. Pulmonary artery systolic pressure is normal. Pulmonic Valve Not well visualized. Pericardium Normal Aorta Normal in size IVC Appears to be dilated. CONCLUSIONS Left ventricle is dilated. LV systolic function severely reduced with EF of 15 to 20%. Above-mentioned regional wall motion abnormalities. No LV thrombus is seen noted. RA pressure is elevated and is >10 mmHg. Left atrial dilation Moderate mitral regurgitation Mild tricuspid regurgitation IVC is dilated Compared to prior echocardiogram from 03/18/2021, no significant changes are seen Elton Nickerson MD (Electronically Signed) Final Date: 20 March 2022 16:44 S
[2022-03-16] MEDS: perflutren protein-a microsphr 0.22 mg/mL SDV 3 mL IV (07:47)
== END 2022-03-16 06:45 | disposition home or self-care (01) ==
LOC: RAD 06:45
PROVIDERS: PCP Family Medicine; Visit Provider Internal Medicine
DX: I25.5 Ischemic cardiomyopathy (principal); I08.1 Rheumatic disorders of both mitral and tricuspid valves
CPT/HCPCS: C8929; Q9956

== ENCOUNTER 2022-03-23 10:50 | Outpatient (RCR) | payer MEDICAID, SELFPAY | END 2022-04-19 23:59 | disposition home or self-care (01) | LOC: CR 10:50 | PROVIDERS: PCP Family Medicine; Referring Provider Family Medicine; Visit Provider Family Medicine | DX: I25.10 Atherosclerotic heart disease of native coronary artery without angina pectoris (principal) ==

== ENCOUNTER 2022-04-20 11:50 | Outpatient (RCR) | payer MEDICAID, SELFPAY | END 2022-05-17 23:59 | disposition home or self-care (01) | LOC: CR 11:50 | PROVIDERS: PCP Family Medicine; Referring Provider Family Medicine; Visit Provider Family Medicine | DX: I25.10 Atherosclerotic heart disease of native coronary artery without angina pectoris (principal) ==

== ENCOUNTER → 2022-04-27 11:30 | Outpatient (BNVA) | payer MEDICAID, SELFPAY | PROVIDERS: PCP Family Medicine; Visit Provider Family Medicine | DX: I25.5 Ischemic cardiomyopathy (principal) | CPT/HCPCS: 80053; 84439; 84443 ==

== ENCOUNTER 2022-05-18 13:02 | Outpatient (RCR) | payer MEDICAID, SELFPAY | END 2022-06-17 23:59 | disposition home or self-care (01) | LOC: CR 13:02 | PROVIDERS: PCP Family Medicine; Referring Provider Family Medicine; Visit Provider Family Medicine | DX: I25.10 Atherosclerotic heart disease of native coronary artery without angina pectoris (principal) ==

== ENCOUNTER 2022-06-01 07:55 | Outpatient (CLI) | payer MEDICAID, SELFPAY ==
[2022-06-01 08:18] VITALS: PULSE 60; RESP 18; O2SAT 98
[2022-06-01] MEDS: albuterol 2.5 mg/3 mL Neb INHALATION (08:18)
[2022-06-01 08:22] VITALS: PULSE 71
== END 2022-06-01 07:56 | disposition home or self-care (01) ==
LOC: RT 07:56
PROVIDERS: Family Provider Internal Medicine; PCP Family Medicine; Visit Provider Internal Medicine
DX: R06.02 Shortness of breath (principal)
CPT/HCPCS: 94060; 94726; 94729

== ENCOUNTER 2022-06-20 11:56 | Outpatient (RCR) | payer MEDICAID, SELFPAY | END 2022-07-17 23:59 | disposition home or self-care (01) | LOC: CR 11:56 | PROVIDERS: Family Provider Internal Medicine; PCP Family Medicine; Referring Provider Family Medicine; Visit Provider Family Medicine | DX: I25.10 Atherosclerotic heart disease of native coronary artery without angina pectoris (principal) ==

== ENCOUNTER 2022-07-18 14:11 | Outpatient (RCR) | payer MEDICAID, SELFPAY | END 2022-08-17 23:59 | disposition home or self-care (01) | LOC: CR 14:11 | PROVIDERS: Family Provider Internal Medicine; PCP Family Medicine; Referring Provider Family Medicine; Visit Provider Family Medicine | DX: I25.10 Atherosclerotic heart disease of native coronary artery without angina pectoris (principal) ==

== ENCOUNTER 2022-08-19 11:42 | Outpatient (RCR) | payer MEDICAID, SELFPAY | END 2022-09-16 23:59 | disposition home or self-care (01) | LOC: CR 11:42 | PROVIDERS: Family Provider Internal Medicine; PCP Family Medicine; Referring Provider Family Medicine; Visit Provider Family Medicine | DX: I25.10 Atherosclerotic heart disease of native coronary artery without angina pectoris (principal) ==

== ENCOUNTER 2022-09-19 07:49 | Outpatient (RCR) | payer MEDICAID, SELFPAY | END 2022-10-17 23:59 | disposition home or self-care (01) | LOC: CR 07:49 | PROVIDERS: Family Provider Internal Medicine; PCP Family Medicine; Referring Provider Family Medicine; Visit Provider Family Medicine | DX: I25.10 Atherosclerotic heart disease of native coronary artery without angina pectoris (principal) ==

== ENCOUNTER 2022-10-18 13:18 | Outpatient (RCR) | payer MEDICAID, SELFPAY | END 2022-11-17 23:59 | disposition home or self-care (01) | LOC: CR 13:18 | PROVIDERS: Family Provider Internal Medicine; PCP Family Medicine; Referring Provider Family Medicine; Visit Provider Family Medicine | DX: I25.10 Atherosclerotic heart disease of native coronary artery without angina pectoris (principal) ==

== ENCOUNTER 2022-12-12 13:00 | Outpatient (RCR) | payer SELFPAY | END 2022-12-17 23:59 | disposition home or self-care (01) | LOC: CR 13:00 | PROVIDERS: Family Provider Internal Medicine; PCP Family Medicine; Referring Provider Family Medicine; Visit Provider Family Medicine | DX: I25.10 Atherosclerotic heart disease of native coronary artery without angina pectoris (principal) ==

== ENCOUNTER → 2022-12-20 08:25 | Outpatient (BNVA) | payer MEDICAID, SELFPAY | PROVIDERS: Family Provider Internal Medicine; PCP Family Medicine; Visit Provider Family Medicine | DX: R19.5 Other fecal abnormalities (principal); I50.20 Unspecified systolic (congestive) heart failure; J44.9 Chronic obstructive pulmonary disease, unspecified; I25.10 Atherosclerotic heart disease of native coronary artery without angina pectoris; E87.5 Hyperkalemia | CPT/HCPCS: 80053; 80061; 83880; 85025 ==

== ENCOUNTER 2022-12-20 10:03 | Outpatient (RCR) | payer SELFPAY | END 2023-01-17 23:59 | disposition home or self-care (01) | LOC: CR 10:03 | PROVIDERS: Family Provider Internal Medicine; PCP Family Medicine; Referring Provider Family Medicine; Visit Provider Family Medicine | DX: I25.10 Atherosclerotic heart disease of native coronary artery without angina pectoris (principal) | CPT/HCPCS: 80053; 80061; 83880; 85025 ==

== ENCOUNTER 2022-12-29 07:51 | Day surgery (SDC) | payer MEDICAID, SELFPAY ==
[2022-12-26 08:30] VITALS: BMI 29.1
--- NOTE | 2022-12-26 08:35 | ECG_ITS ---
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 [email or web address]
--- NOTE | 2022-12-26 16:14 | P.ANESASSM_ITS ---
Pre-Anesthetic Assessment Height/Weight: Height 1.83 m Weight 97.522 kg Operation Date: 12/29/22 09:30 Proposed Procedures p 94953 colon, G0121 screen colon A risk Z12.11(Not Applicable) - Gwyn Crews DO Familial anesthetic complications: none Was Beta Damon taken within 24 hours: Yes Was Clonidine taken within 24 hours: N/A Social No alcohol and No tobacco Exam alert, oriented x 3, clear to auscultation bilaterally and regular rate & rhythm Airway Submandibular: within normal limits Cervical ROM: within normal limits Mallampati: Class II Dentition: false Pulmonary Chronic Obstructive Pulmonary Disease CV/HEM Coronary Artery Disease, Congestive Heart Failure (EF 15-20%) and Myocardial Infarction AICD CONCLUSIONS ?Left ventricle is dilated.? LV systolic function severely ?reduced with EF of 15 to 20%.? Above-mentioned regional wall ?motion abnormalities.? No LV thrombus is seen noted. ?RA pressure is elevated and is >10 mmHg. ?Left atrial dilation ?Moderate mitral regurgitation ?Mild tricuspid regurgitation ?IVC is dilated ?Compared to prior echocardiogram from 03/18/2021, no significant ?changes are seen ?Elton Nickerson MD ?(Electronically Signed) ?Final Date:? ? ? 20 March 2022 Chronic Renal Insufficiency Anesthetic Plan ASA status: 4 Anesthesia: MAC Medications/Allergies Home Medications Medication Instructions Recorded Confirmed Last Taken Type furosemide 20 mg tablet 20 mg PO BID 06/01/21 12/26/22 12/26/22 History sacubitril 24 mg-valsartan 26 mg 1 tab PO BID #60 tabs 06/01/21 12/26/22 12/26/22 Rx tablet amiodarone 400 mg tablet 200 mg PO DAILY 11/30/21 12/26/22 12/26/22 History atorvastatin 80 mg tablet 80 mg PO DAILY #30 tabs 12/01/21 12/26/22 12/26/22 Rx apixaban 5 mg tablet (Eliquis) 5 mg PO BID 90 days #180 tabs 08/24/22 12/26/22 12/23/22 Rx dapagliflozin propanediol 10 mg See Rx Instructions .Route 09/27/22 12/26/22 12/25/22 Rx tablet (Farxiga) .COMPLEX #30 tabs clopidogrel 75 mg tablet 75 mg PO DAILY #30 tabs 09/07/1012/26/22 12/26/22 Rx metoprolol succinate 25 mg 25 mg PO DAILY #30 tabs 11/21/22 12/26/22 12/26/22 Rx tablet,extended release 24 hr spironolactone 25 mg tablet 25 mg PO DAILY #30 tabs 11/21/22 12/26/22 12/26/22 Rx Allergies Allergy/AdvReac Type Severity Reaction Status Date / Time No Known Allergies Allergy Verified 12/26/22 08:26 [facility] Anesthesia Medical History COPD (chronic obstructive pulmonary disease) Coronary artery disease HFrEF (heart failure with reduced ejection fraction) LV (left ventricular) mural thrombus No pertinent past medical history ST elevation myocardial infarction (STEMI) Tobacco abuse Surgical History No pertinent past surgical history Family History Sister CAD (coronary artery disease) Social History Smoking and tobacco status: never smoked Alcohol intake: current Alcohol intake frequency: 0-2 Drinks per Day Substance/Drug Use: never Data Anesthesia Cardiac Studies: Echocardiogram 03/16/22
[2022-12-29 08:16] VITALS: BP 113/61; PULSE 63; RESP 16; TEMP 36.5; O2SAT 96; BMI 29.1
[2022-12-29] MEDS: sodium chloride 0.9% 1,000 ML 30 ML IV (08:53)
--- NOTE | 2022-12-29 10:26 | W.PM.OPSUD ---
Surgery/Procedure H&P Update DATE OF PROCEDURE: December 29, 2022 DATE H&P PERFORMED: 12/21/22 H&P UPDATE INFORMATION: I have reviewed H&P completed within last 30 days, I have examined patient prior to procedure and No changes to prior documentation PLANNED PROCEDURE: Operation Date: 12/29/22 09:00 Proposed Procedures p 34408 colon, G0121 screen colon A risk Z12.11(Not Applicable) - Gwyn Crews, DO
[2022-12-29 10:55] VITALS: BP 98/63; PULSE 53; RESP 16; TEMP 36.2; O2SAT 94
--- NOTE | 2022-12-29 12:48 | ANES.PAUD2 ---
Pre-Anesthetic Update Pre-Anesthetic Assessment: Date of Surgery/Procedure: 12/29/22 Proposed Procedure: Operation Date: 12/29/22 09:00 Proposed Procedures p 57486 colon, G0121 screen colon A risk Z12.11(Not Applicable) - Gwyn Crews, DO Any changes to Pre-Anesthetic Assessment?: No Last Intake: Intake Last Liquid Date 12/28/22 Last Liquid Time 22:00 Last Solid Date 12/28/22 Last Solid Time 06:30 Vitals: Temperature 97.1 F L 12/29/22 10:55 Temperature Source Temporal Artery S can 12/29/22 10:55 Pulse Rate 53 L 12/29/22 10:55 Respiratory Rate 16 12/29/22 10:55 Blood Pressure 98/63 12/29/22 10:55 Blood Pressure Loly n 74 12/29/22 10:55 Pulse Oximetry 94 12/29/22 10:55 Oxygen Delivery Me thod Nasal Cannula 12/29/22 10:55 Oxygen Flow Rate 4 12/29/22 10:55 Exam: Pre-Anes Outpt Exam: alert, oriented x 3, clear to auscultation bilaterally and regular rate & rhythm Cardiac Studies: Echocardiogram 03/16/22
--- NOTE | 2022-12-29 12:48 | ANE.PACU2 ---
Inpatient post-anesthesia follow up: Airway intact: Yes Vital signs: Temperature 97.1 F Pulse Rate 53 Respiratory Rate 16 Blood Pressure 98/63 Pulse Oximetry 94 Oxygen Delivery Me thod Nasal Cannula Oxygen Flow Rate 4 Fraction of Inspir ed Oxygen Hydration adequate: Yes Nausea and vomiting: No Pain level: 2 Mental status: Baseline
== END 2022-12-29 11:19 | disposition home or self-care (01) ==
PROVIDERS: PCP Family Medicine; Visit Provider Surgery
PROC: 0DJD8ZZ Inspection of Lower Intestinal Tract, Via Natural or Artificial Opening Endoscopic (ICD-10-PCS; CPT 45378; principal; 2022-12-29 09:00)
DX: Z12.11 Encounter for screening for malignant neoplasm of colon (principal); K64.8 Other hemorrhoids; D12.8 Benign neoplasm of rectum; D12.5 Benign neoplasm of sigmoid colon; J44.9 Chronic obstructive pulmonary disease, unspecified; I25.10 Atherosclerotic heart disease of native coronary artery without angina pectoris; I25.2 Old myocardial infarction; I50.9 Heart failure, unspecified
CPT/HCPCS: 45385; 88305; 93005; J2250; J2704; J3490; J7030

== ENCOUNTER 2023-01-20 10:03 | Outpatient (RCR) | payer SELFPAY | END 2023-02-16 23:59 | disposition home or self-care (01) | LOC: CR 10:03 | PROVIDERS: Family Provider Internal Medicine; PCP Family Medicine; Referring Provider Family Medicine; Visit Provider Family Medicine | DX: I25.10 Atherosclerotic heart disease of native coronary artery without angina pectoris (principal) ==

== ENCOUNTER 2023-02-17 10:23 | Outpatient (RCR) | payer SELFPAY | END 2023-03-19 23:59 | disposition home or self-care (01) | LOC: CR 10:23 | PROVIDERS: Family Provider Internal Medicine; PCP Family Medicine; Referring Provider Family Medicine; Visit Provider Family Medicine | DX: I25.10 Atherosclerotic heart disease of native coronary artery without angina pectoris (principal) ==

== ENCOUNTER 2023-03-21 10:57 | Outpatient (RCR) | payer MEDICAID, SELFPAY | END 2023-04-19 23:59 | disposition home or self-care (01) | LOC: CR 10:57 | PROVIDERS: Family Provider Internal Medicine; PCP Family Medicine; Referring Provider Family Medicine; Visit Provider Family Medicine | DX: I25.10 Atherosclerotic heart disease of native coronary artery without angina pectoris (principal) ==

== ENCOUNTER 2023-05-23 10:57 | Outpatient (CLI) | payer MEDICAID, SELFPAY ==
[2023-05-23 11:11] VITALS: PULSE 60; RESP 18; O2SAT 98
[2023-05-23] MEDS: albuterol 2.5 mg/3 mL Neb INHALATION (11:11)
[2023-05-23 11:15] VITALS: PULSE 61
== END 2023-05-23 10:58 | disposition home or self-care (01) ==
LOC: RT 10:58
PROVIDERS: PCP Family Medicine; Visit Provider Internal Medicine
DX: I25.5 Ischemic cardiomyopathy (principal); I23.6 Thrombosis of atrium, auricular appendage, and ventricle as current complications following acute myocardial infarction
CPT/HCPCS: 94060; 94726; 94729; J7613

== ENCOUNTER 2023-05-30 13:46 | Outpatient (CLI) | payer MEDICAID, SELFPAY ==
[2023-05-30 14:58] LABS: Alanine Aminotransferase 21 U/L (0-41); Albumin Level 4.4 g/dL (3.5-5.2); Alkaline Phosphatase 121 U/L (40-130); Anion Gap 15.2 (5-19); Aspartate Amino Transferase 23 U/L (0-40); Blood Urea Nitrogen 22 mg/dL (6-20); Calcium 9.3 mg/dL (8.5-10.5); Carbon Dioxide 25 mmol/L (22-29); Chloride 103 mmol/L (98-107); Globulin 2.5 g/dL (1.3-4.6); Glomerular Filtration Rate 51.9 mL/min (90-130); Glucose 104 mg/dL (65-115); Magnesium 2.2 mg/dL (1.7-2.3); NT Pro B Type Natriuretic Pept 3885 pg/mL (0-125); Osmolality Calculated 292 mOsm/kg (285-295); Potassium 4.2 mmol/L (3.5-5.1); Sodium 139 mmol/L (136-145); Total Bilirubin 0.8 mg/dL (0.15-1.2); Total Protein 6.9 g/dL (6.6-8.7)
[2023-06-03 10:49] LABS: Heparin XA Low Molecular >2.00 IU/mL
== END 2023-05-30 13:47 | disposition home or self-care (01) ==
LOC: LAB 13:46
PROVIDERS: PCP Family Medicine; Visit Provider Internal Medicine
DX: I25.5 Ischemic cardiomyopathy (principal); I23.6 Thrombosis of atrium, auricular appendage, and ventricle as current complications following acute myocardial infarction
CPT/HCPCS: 36415; 80053; 83735; 83880; 85520

== ENCOUNTER 2023-07-21 09:37 | Outpatient (CLI) | payer MEDICAID, SELFPAY ==
[2023-07-21 10:41] LABS: Anion Gap 11.1 (5-19); Blood Urea Nitrogen 17 mg/dL (6-20); Calcium 8.9 mg/dL (8.5-10.5); Carbon Dioxide 27 mmol/L (22-29); Chloride 105 mmol/L (98-107); Glomerular Filtration Rate 51.9 mL/min (90-130); Glucose 129 mg/dL (65-115); NT Pro B Type Natriuretic Pept 1262 pg/mL (0-125); Osmolality Calculated 291 mOsm/kg (285-295); Potassium 4.1 mmol/L (3.5-5.1); Sodium 139 mmol/L (136-145)
== END 2023-07-21 09:38 | disposition home or self-care (01) ==
PROVIDERS: PCP Family Medicine; Visit Provider Internal Medicine
DX: I25.5 Ischemic cardiomyopathy (principal)
CPT/HCPCS: 36415; 80048; 83880

== ENCOUNTER 2023-11-22 12:51 | Outpatient (RCR) | payer SELFPAY | END 2023-12-18 23:59 | disposition home or self-care (01) | LOC: CR 12:51 | PROVIDERS: PCP Family Medicine; Referring Provider Family Medicine; Visit Provider Family Medicine | DX: I25.10 Atherosclerotic heart disease of native coronary artery without angina pectoris (principal) ==

== ENCOUNTER → 2023-12-06 13:58 | Outpatient (BNVA) | payer MEDICARE, SELFPAY | PROVIDERS: Visit Provider Internal Medicine | DX: I50.20 Unspecified systolic (congestive) heart failure (principal); I25.10 Atherosclerotic heart disease of native coronary artery without angina pectoris; J44.9 Chronic obstructive pulmonary disease, unspecified; Z87.891 Personal history of nicotine dependence | CPT/HCPCS: 99214 ==

== ENCOUNTER 2023-12-19 13:46 | Outpatient (RCR) | payer SELFPAY | END 2024-01-18 23:59 | disposition home or self-care (01) | LOC: CR 13:46 | PROVIDERS: PCP Family Medicine; Referring Provider Family Medicine; Visit Provider Family Medicine | DX: I25.10 Atherosclerotic heart disease of native coronary artery without angina pectoris (principal) ==

== ENCOUNTER → 2023-12-21 08:52 | Outpatient (BNVA) | payer MEDICARE, SELFPAY | PROVIDERS: PCP Family Medicine; Visit Provider Family Medicine | DX: I25.10 Atherosclerotic heart disease of native coronary artery without angina pectoris (principal); I50.20 Unspecified systolic (congestive) heart failure; I21.02 ST elevation (STEMI) myocardial infarction involving left anterior descending coronary artery; I49.01 Ventricular fibrillation; J44.9 Chronic obstructive pulmonary disease, unspecified; R74.01 Elevation of levels of liver transaminase levels | CPT/HCPCS: 80053; 80061; 85025 ==

== ENCOUNTER 2024-01-19 14:09 | Outpatient (RCR) | payer SELFPAY | END 2024-02-17 23:59 | disposition home or self-care (01) | LOC: CR 14:09 | PROVIDERS: PCP Family Medicine; Referring Provider Family Medicine; Visit Provider Family Medicine | DX: I25.10 Atherosclerotic heart disease of native coronary artery without angina pectoris (principal) ==

== ENCOUNTER 2024-02-21 07:46 | Outpatient (RCR) | payer SELFPAY | END 2024-03-19 23:59 | disposition home or self-care (01) | LOC: CR 07:46 | PROVIDERS: PCP Family Medicine; Referring Provider Family Medicine; Visit Provider Family Medicine | DX: I25.10 Atherosclerotic heart disease of native coronary artery without angina pectoris (principal) ==

== ENCOUNTER 2024-03-20 10:39 | Outpatient (RCR) | payer SELFPAY | END 2024-04-19 23:59 | disposition home or self-care (01) | LOC: CR 10:39 | PROVIDERS: PCP Family Medicine; Referring Provider Family Medicine; Visit Provider Family Medicine | DX: I25.10 Atherosclerotic heart disease of native coronary artery without angina pectoris (principal) ==

== ENCOUNTER 2024-04-22 15:44 | Outpatient (RCR) | payer SELFPAY | END 2024-05-17 23:59 | disposition home or self-care (01) | LOC: CR 15:44 | PROVIDERS: PCP Family Medicine; Referring Provider Family Medicine; Visit Provider Family Medicine | DX: I25.10 Atherosclerotic heart disease of native coronary artery without angina pectoris (principal) ==

== ENCOUNTER 2024-05-18 12:50 | Outpatient (RCR) | payer SELFPAY | END 2024-06-17 23:59 | disposition home or self-care (01) | LOC: CR 12:50 | PROVIDERS: PCP Family Medicine; Referring Provider Family Medicine; Visit Provider Family Medicine | DX: I25.10 Atherosclerotic heart disease of native coronary artery without angina pectoris (principal) ==

== ENCOUNTER 2024-06-18 14:53 | Outpatient (RCR) | payer SELFPAY | END 2024-07-17 23:59 | disposition home or self-care (01) | LOC: CR 14:53 | PROVIDERS: PCP Family Medicine; Referring Provider Family Medicine; Visit Provider Family Medicine | DX: I25.10 Atherosclerotic heart disease of native coronary artery without angina pectoris (principal) ==

== ENCOUNTER 2024-06-28 08:56 | Outpatient (CLI) | payer MEDICARE, SELFPAY ==
[2024-06-28 09:57] LABS: Blood Urea Nitrogen 21 mg/dL (8-23); Calcium 9.1 mg/dL (8.5-10.5); Carbon Dioxide 25 mmol/L (22-29); Chloride 102 mmol/L (98-107); Glomerular Filtration Rate 61.8 mL/min (90-130); Glucose 93 mg/dL (65-115); Osmolality Calculated 285 mOsm/kg (285-295); Sodium 136 mmol/L (136-145)
== END 2024-06-28 08:57 | disposition home or self-care (01) ==
LOC: LAB 08:58
PROVIDERS: PCP Family Medicine; Visit Provider Internal Medicine
DX: I50.42 Chronic combined systolic (congestive) and diastolic (congestive) heart failure (principal)
CPT/HCPCS: 36415; 80048

== ENCOUNTER 2024-07-03 07:57 | Outpatient (CLI) | payer MEDICARE, SELFPAY ==
[2024-07-03 08:17] VITALS: PULSE 64; RESP 18; O2SAT 94
[2024-07-03] MEDS: albuterol 2.5 mg/3 mL Neb INHALATION (08:17)
--- NOTE | 2024-07-03 10:24 | USR_ITS ---
PROCEDURE INFORMATION: Exam: US Bilateral Noninvasive Physiologic Study of the Lower Extremity Arteries, Limited Exam date and time: 07/03/2024 10:13 AM Age: 59 years old Clinical indication: Pain; Arm, lower; Bilateral; Additional info: Pain in bilat lower extremities TECHNIQUE: Imaging protocol: Bilateral Limited bilateral noninvasive physiologic studies of lower extremity arteries. Waveforms were obtained and evaluated. Images were documented and archived. Exam is limited. COMPARISON: US renal BI* [id number] 03/17/2021 6:48 AM FINDINGS: Right femoral arteries: Not done Right infrapopliteal arteries: Not done Left femoral arteries: Not done Left infrapopliteal arteries: Not done Right Ankle-Brachial Index: Normal. 1.19 using the posterior tibial artery. 0.98 using the dorsalis pedis artery. Left Ankle-Brachial Index: Normal. 1.16 using the posterior tibial artery. 1.03 using the dorsalis pedis artery. US/CV ankle brachial index 20055 IMPRESSION: Normal ankle-brachial indices bilaterally.
== END 2024-07-03 07:58 | disposition home or self-care (01) ==
PROVIDERS: PCP Family Medicine; Visit Provider Internal Medicine
DX: Z79.899 Other long term (current) drug therapy (principal)
CPT/HCPCS: 93922; 94060; 94726; 94729

== ENCOUNTER 2024-07-18 12:51 | Outpatient (RCR) | payer SELFPAY | END 2024-08-17 23:59 | disposition home or self-care (01) | LOC: CR 12:51 | PROVIDERS: PCP Family Medicine; Referring Provider Family Medicine; Visit Provider Family Medicine | DX: I25.10 Atherosclerotic heart disease of native coronary artery without angina pectoris (principal) ==

== ENCOUNTER 2024-08-18 09:01 | Outpatient (RCR) | payer SELFPAY | END 2024-09-16 23:59 | disposition home or self-care (01) | LOC: CR 09:01 | PROVIDERS: PCP Family Medicine; Referring Provider Family Medicine; Visit Provider Family Medicine | DX: I25.10 Atherosclerotic heart disease of native coronary artery without angina pectoris (principal) ==

== ENCOUNTER → 2024-09-11 12:37 | Outpatient (BNVA) | payer MEDICARE, SELFPAY | PROVIDERS: PCP Family Medicine; Visit Provider Nurse Practitioner Family | DX: I50.20 Unspecified systolic (congestive) heart failure (principal); I25.10 Atherosclerotic heart disease of native coronary artery without angina pectoris; J44.9 Chronic obstructive pulmonary disease, unspecified; Z79.01 Long term (current) use of anticoagulants; Z95.818 Presence of other cardiac implants and grafts; I25.2 Old myocardial infarction | CPT/HCPCS: 99213 ==

== ENCOUNTER 2024-10-01 10:44 | Outpatient (RCR) | payer SELFPAY | END 2024-10-17 23:59 | disposition home or self-care (01) | LOC: CR 10:44 | PROVIDERS: PCP Family Medicine; Referring Provider Family Medicine; Visit Provider Family Medicine | DX: I25.10 Atherosclerotic heart disease of native coronary artery without angina pectoris (principal) ==

== ENCOUNTER 2024-10-18 13:38 | Outpatient (RCR) | payer SELFPAY | END 2024-11-17 23:59 | disposition home or self-care (01) | LOC: CR 13:38 | PROVIDERS: PCP Family Medicine; Referring Provider Family Medicine; Visit Provider Family Medicine | DX: I25.10 Atherosclerotic heart disease of native coronary artery without angina pectoris (principal) ==

== ENCOUNTER 2024-11-19 13:43 | Outpatient (RCR) | payer SELFPAY | END 2024-12-17 23:59 | disposition home or self-care (01) | LOC: CR 13:43 | PROVIDERS: PCP Family Medicine; Referring Provider Family Medicine; Visit Provider Family Medicine | DX: I25.10 Atherosclerotic heart disease of native coronary artery without angina pectoris (principal) ==

== ENCOUNTER 2024-12-18 09:56 | Outpatient (RCR) | payer SELFPAY | END 2025-01-17 23:59 | disposition home or self-care (01) | LOC: CR 09:56 | PROVIDERS: PCP Family Medicine; Referring Provider Family Medicine; Visit Provider Family Medicine | DX: I25.10 Atherosclerotic heart disease of native coronary artery without angina pectoris (principal) | CPT/HCPCS: 80053; 80061; 84443; 85025 ==

== ENCOUNTER 2024-12-18 10:50 | Outpatient (CLI) | payer MEDICARE, SELFPAY | END 2024-12-18 10:51 | disposition home or self-care (01) | LOC: LAB 12-31 10:53 | PROVIDERS: PCP Family Medicine; Visit Provider Family Medicine | DX: I50.20 Unspecified systolic (congestive) heart failure (principal); I25.10 Atherosclerotic heart disease of native coronary artery without angina pectoris; J44.9 Chronic obstructive pulmonary disease, unspecified; R74.01 Elevation of levels of liver transaminase levels | CPT/HCPCS: 80053; 80061; 84443; 85025 ==

== ENCOUNTER 2025-01-18 13:03 | Outpatient (RCR) | payer SELFPAY | END 2025-02-16 23:59 | disposition home or self-care (01) | LOC: CR 13:03 | PROVIDERS: PCP Family Medicine; Referring Provider Family Medicine; Visit Provider Family Medicine | DX: I25.10 Atherosclerotic heart disease of native coronary artery without angina pectoris (principal) ==

== ENCOUNTER 2025-02-17 11:55 | Outpatient (RCR) | payer SELFPAY | END 2025-03-19 23:59 | disposition home or self-care (01) | LOC: CR 11:55 | PROVIDERS: PCP Family Medicine; Referring Provider Family Medicine; Visit Provider Family Medicine | DX: I25.10 Atherosclerotic heart disease of native coronary artery without angina pectoris (principal) ==

== ENCOUNTER → 2025-03-11 14:42 | Outpatient (BNVA) | payer MEDICARE, SELFPAY | PROVIDERS: PCP Family Medicine; Visit Provider Internal Medicine | DX: I50.20 Unspecified systolic (congestive) heart failure (principal); I25.10 Atherosclerotic heart disease of native coronary artery without angina pectoris | CPT/HCPCS: 99214 ==